=== PATIENT | male | born 1945 | race Caucasian/White ===

== ENCOUNTER → 2018-04-30 16:06 | Outpatient (CLI) | payer MEDICARE, OTHER, SELFPAY | PROVIDERS: Visit Provider Otolaryngology | DX: J02.9 Acute pharyngitis, unspecified (principal) | CPT/HCPCS: 87070 ==

== ENCOUNTER → 2018-10-29 15:39 | Outpatient (CLI) | payer MEDICARE, OTHER, SELFPAY ==
--- NOTE | 2018-10-29 16:08 | RAD_ITS ---
STUDY: X-RAY - LUMBAR SPINE REASON FOR EXAM: Male, 73 years old. Low back pain TECHNIQUE: 5 view(s) of the lumbar spine were obtained. COMPARISON: None FINDINGS: Normal lumbar lordosis. There is no substantial scoliosis. There is a normal alignment of the vertebrae. There is multilevel endplate spondylosis of the lumbar vertebrae. There is multi-level degenerative disc disease with multi-level disc space narrowing. There is no demonstrated fracture. There is atherosclerotic calcification of the abdominal aorta without a demonstrated aneurysm. RAD/L/S Spine Min 4 Views IMPRESSION: Degenerative changes of the spine, as detailed above. Electronically Signed: Omero Carver MD at 11:51 EDT , Service support ,
[2018-10-29 18:10] LABS: ALB/GLOB Ratio 1.3 RATIO (0.9-2.4); AST(SGOT) 23 U/L (15-37); Alanine Aminotransfer ALT/SGPT 25 U/L (16-61); Alkaline Phosphatase 54 U/L (45-117); Anion Gap 7 (5-15); BUN 18 mg/dL (7-18); BUN/Creat Ratio 15.4 RATIO (10-20); CRP < 2.90 mg/L (0.0-3.0); Calcium,Total 8.7 mg/dL (8.5-10.1); Chloride 103 mmol/L (98-107); Creatinine, Serum 1.17 mg/dL (0.70-1.30); EST Glomerular Filtration Rate 65 mL/min (>60); Est Glom Filt Rate - Afr Amer 79 mL/min (>60); Globulin 3.1 g/dL (2.2-4.2); Glucose 102 mg/dL (74-106); Potassium 3.9 mmol/L (3.5-5.1); Protein, Total 7.1 g/dL (6.4-8.2); Rheumatoid Factor < 10.0 IU/mL (<15); Sodium Level 137 mmol/L (136-145)
[2018-10-29 18:15] LABS: Erythrocyte Sedimentation Rate 3 mm/hr (0-20)
[2018-10-29 18:23] LABS: Microalbumin,Random Urine < 5.0 mg/L (NO RANGE EST.)
[2018-10-29 18:43] LABS: PTHIN 30.5 pg/mL (18.4-80.1)
[2018-11-04 11:53] LABS: ANTINUCLEAR ANTIBODIES DIRECT Negative (Negative)
== END ==
PROVIDERS: Family Provider Family Medicine; PCP Family Medicine; Referring Provider Family Medicine; Visit Provider Family Medicine
DX: M51.36 Other intervertebral disc degeneration, lumbar region (principal); M13.0 Polyarthritis, unspecified; I10 Essential (primary) hypertension
CPT/HCPCS: 36415; 72110; 80053; 82043; 82570; 83970; 85652; 86038; 86140; 86431

== ENCOUNTER → 2018-11-26 13:09 | Outpatient (CLI) | payer MEDICARE, OTHER, SELFPAY ==
--- NOTE | 2018-11-26 13:19 | MRI_ITS ---
STUDY: MRI LUMBAR SPINE WITHOUT CONTRAST REASON FOR EXAM: Male, 73 years old. Low back pain and right leg radiculopathy TECHNIQUE: Standardized fat and water weighted pulse sequences were obtained in the sagittal and axial planes. COMPARISON: Lumbar spine radiograph 10/29/2018 FINDINGS: T12-L1: There is moderate intervertebral disc space narrowing. There is central and right paracentral broad-based disc bulge and a central disc protrusion with inferior migration. Mild ventral thecal sac narrowing. Mild to moderate bilateral facet arthrosis. Normal bilateral intervertebral neural foramina. There is mild straightening of the lumbar lordosis. There is a dextroscoliosis of the lumbar spine. Normal conus medullaris that terminates at the L1 level L1-2: Moderate intervertebral disc space narrowing and mild annular disc bulge. Moderate bilateral facet arthrosis. Mild ventral thecal sac narrowing all. Normal bilateral intervertebral neural foramina. L2-3: There is moderate to marked intervertebral disc space narrowing. Mild annular disc bulge. Moderate bilateral facet arthrosis. Mild central canal narrowing. There is Modic changes of the endplates. Mild bilateral foraminal narrowing. L3-4: Moderate to marked intervertebral disc space narrowing and mild annular disc bulge. Moderate bilateral facet arthrosis and ligamentum flavum hypertrophy. Mild central canal narrowing and mild bilateral foraminal narrowing, right greater than left. L4-5: There is marked intervertebral disc space narrowing and Modic changes of the endplates. Mild annular disc bulge and small central disc protrusion. Moderate bilateral facet arthrosis and ligamentum flavum are the. Mild central canal narrowing. Mild bilateral foraminal narrowing. L5-S1: Marked intervertebral disc space narrowing. There is central disc protrusion. Moderate bilateral facet arthrosis and ligamentum flavum hypertrophy. Mild central canal narrowing. Mild bilateral foraminal narrowing. Normal visualized sacral ala. Normal visualized paraspinous soft tissue structures. MRI/Spine Lumbar (Routine) IMPRESSION: Multilevel degenerative disc disease as described in detail above. Mild straightening of the lumbar lordosis and lumbar dextroscoliosis Electronically Signed: Bhanu Jamison, at 15:52 EDT Tel , Service support ,
== END ==
PROVIDERS: Family Provider Family Medicine; PCP Family Medicine; Referring Provider Anesthesiology Pain Medicine; Visit Provider Anesthesiology Pain Medicine
DX: M54.9 Dorsalgia, unspecified (principal); M79.606 Pain in leg, unspecified
CPT/HCPCS: 72148

== ENCOUNTER → 2018-12-14 17:33 | Outpatient (CLI) | payer MEDICARE, OTHER, SELFPAY ==
--- NOTE | 2018-12-14 17:37 | RAD_ITS ---
STUDY: X-RAY - CERVICAL SPINE REASON FOR EXAM: Male, 73 years old. Neck pain. TECHNIQUE: 3 view(s) of the cervical spine were obtained. COMPARISON: None FINDINGS: Normal anterior atlantoaxial articulation. Normal odontoid process. Minimal retrolisthesis C4 on C5. Disc space narrowing C4-C5 and C5-C6 with uncovertebral joint hypertrophy. Rudimentary cervical ribs. Prevertebral soft tissues unremarkable. 1.5 cm vertically oriented wedge-shaped calcification or osseous density posterior soft tissue at C5 probably related to old trauma. RAD/Cerv Spine 2 or 3 Views IMPRESSION: Degenerative changes of the cervical spine at C4-5 and C5-6. No fracture identified. Electronically Signed: Ed Robbins MD at 1:49 EDT , Service support ,
== END ==
PROVIDERS: Family Provider Family Medicine; PCP Family Medicine; Referring Provider Anesthesiology Pain Medicine; Visit Provider Anesthesiology Pain Medicine
DX: M54.2 Cervicalgia (principal)
CPT/HCPCS: 72040

== ENCOUNTER 2019-01-13 13:00 | Outpatient (RCR) | payer MEDICARE, OTHER, SELFPAY ==
--- NOTE | 2018-12-21 16:20 | HP.PTEVAL ---
Patient's Visit Information NELLA TOWNSEND is a 73 year old M referred to Physical Therapy by Cathy Bustamante MD with a diagnosis of BACK AND NECK PAIN. Date of Evaluation: 12/21/18 Physical Therapist: Mat Bernardo PT, Cert MDT, OCS - Visit Plan Frequency: 2x /Week Duration: 4 Weeks Plan: INTERVENTIONS TO INCLUDE DLS,POSTURAL EX'S ,STACEY ,ADDRESS LEFT TMJ CLICKING WITH POSTURAL EX'S - Subjective Findings: This 73 y/o male presents to physical therapy with back pain and neck pain .Patient has had back pain many years and cervical pain past years. Patient was reffered to pain management. Patient seen pain epidural injections last seem to help. Pain located lumbar region with radicular symptoms. Cervical pain is on left side cervica spine. Aggraveting bending ,lifting. Alleviating factors walking ,standing,sitting.Symptoms worse in cervical spine worse with yawning.Denies parathesia/tingling. Bowel/bladder good. Patient had MRI . No Meds. Patient symptoms affect sleeping.Patient denies JANSEN/dizziness,nuasea. Symptoms affect part-time work and ADL'S. Symptoms affect QOL and function: SOCIAL: . 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 GAIT: reciprocal pattern ,mild foward posture. NEURO: denies parathesia/tingling,reflexes C5-6-7 2 /3,L3-4,L4-5,L5-S1 1/3. PALAPTION: tender TMJ ,lateral muscles. CERVICAL ROM: flexion min loss,lateral flexion ,rotation,extension min loss,. MMT: BUE 4/5. LUMBAR ROM: flexion min loss,extension min loss,side glides min loss,. MMT: quads/hams 4/5,hip flexion 4-/5,ankle 4/5. FLEXABLITY: hmas min tight - Special Tests C/S Radiculapathy - Left Upper limb tension test: Negative C/S Radiculapathy - Right Upper limb tension test: Negative C/S Radiculapathy - Left Spurlings: Negative C/S Radiculapathy - Right Spurlings: Negative C/S Radiculapathy - Left Cervical distraction: Negative C/S Radiculapathy - Right Cervical distraction: Negative Sharp Jeff: Negative Vertebral Artery Test: Negative Alar Ligament Test: Negative Cervical Sitting: Protrusion - Mechanical Response: No effect Cervical Sitting: Protrusion - Symptoms During Testing: No effect Cervical Sitting: Protrusion - Symptoms After Testing: No effect Cervical Sitting: Retraction - Mechanical Response: No effect Cervical Sitting: Retraction - Symptoms During Testing: No effect Cervical Sitting: Retraction - Symptoms After Testing: No effect Cervical Sitting: Retraction-Extension - Mechanical Response: No effect Cerv Sitting: Retraction-Extension - Symptoms During Testing: No effect Cerv Sitting: Retraction-Extension - Symptoms After Testing: No effect L/S Slump test left side: Negative L/S Slump test right side: Negative L/S Left Straight Leg Raise: Negative L/S Right Straight Leg Raise: Negative Lumbar Standing: Flexion - Mechanical Response: No effect Lumbar Standing: Flexion - Symptoms During Testing: No effect Lumbar Standing: Flexion - Symptoms After Testing: No effect Lumbar Standing: Extension - Mechanical Response: No effect Lumbar Standing: Extension - Symptoms During Testing: No effect Lumbar Standing: Extension - Symptoms After Testing: No effect Lumbar Lying: Flexion - Mechanical Response: No effect Lumbar Lying: Flexion - Symptoms During Testing: No effect Lumbar Lying: Flexion - Symptoms After Testing: No effect Lumbar Lying: Extension - Mechanical Response: No effect Lumbar Lying: Extension - Symptoms During Testing: No effect Lumbar Lying: Extension - Symptoms After Testing: No effect - Goals Goal 1:: Independant with HEP Goal Time Frame: 4-6 Weeks Goal 2:: Independant with HEP Goal Time Frame: 4-6 Weeks Goal 3:: Decrease lumbar/cervical pain by 50% or greater to imprpove functyion with ADL'S Goal Time Frame: 4-6 Weeks Goal 4:: Patient to improve back owestry score by 5 ponys to improve QOL. Goal Time Frame: 4-6 Weeks Goal 5:: Patient increase lumbar ROM for function of recovery. Goal Time Frame: 4-6 Weeks - Rehabilitation Potential Physical Therapy Diagnosis: This patient has lumbar pain and occassionally radicular symptoms in legs as well as clicking TMJ joint when yawning . Patient pain and weakness affects function with ADL'S. Rehabilitation Potential: Good - Anticipated Interventions Patient/Client Instruction: Educate patient on: Condition, Plan of Care For the Purpose of:: To decrease pain, To increase ROM, To improve muscle performance and motor function, To improve ability to perform ADL's, To increase tolerance to activity/condition/position, To improve ability of physical actions for home/community/work/leisure, To improve gait and locomotor functions, To improve health of tissue, To decrease soft tissue restriction, To increase flexibility/ROM, To reduce risk of recurrence, To improve ability to perform tasks related to life management Therapeutic Exercise to Include: Strength training, Body mechanics, Postural training, Flexibilty training, Dynamic Lumbar Stabilization, Stacey Exercises Comment: CERVICAL For the Purpose of:: To decrease pain, To improve muscle performance and motor function, To increase tolerance to activity/condition/position, To improve ability of physical actions for home/community/work/leisure, To improve gait and locomotor functions, To decrease soft tissue restriction, To increase flexibility/ROM, To reduce risk of recurrence, To improve self management, To improve ability to perform tasks related to life management TENS: Yes IF ES: Yes Cryotherapy (ice pack, ice massage): Yes Thermo therapy (hot pack): Yes Ultrasound (thermal/non thermal): Yes For the Purpose of:: To decrease pain, To decrease swelling/inflammation, To improve health of tissue, To decrease soft tissue restriction Thank you for the opportunity to evaluate your patient. For Medicare and Medicare HMO plans, please review the plan of care and approve it. It will need to be FAXED BACK to us at [phone] for Medicare purposes. For Medicare only, by signing this I certify the plan of care. Please let me know if there are questions or concerns regarding this plan of care. Physician Signature: Date:
--- NOTE | 2019-01-13 13:30 | HP.PTDCSUM ---
HP - PT D/C Summary It has been my pleasure to treat NELLA TOWNSEND under orders from Cathy Bustamante MD, for the diagnosis of BACK AND NECK PAIN for a total of 8 visit(s). Discharge Date: 01/13/19 Please see the following information for a summary of their discharge status. - Subjective Subjective: Doing great in neck and back. Able to do most activities. Pain in left shoulder - Pain Bilateral Back Pain Intensity (Out of 10): 0 Left Neck Pain Intensity (Out of 10): 0 L shoulder Pain Intensity (Out of 10): 2 - Objective Objective/Function: POSTURE:WFL. PALAPTION: tender AC. CERVICAL/LUMBAR ROM: min loss allplanes. MMT: BUE 4/5,QUADS/HAMS/HIP 4/5 - Goals Goal 1:: Independant with HEP Goal Progress: Goal Met Goal 2:: Independant with HEP Goal Progress: Goal Met Goal 3:: Decrease lumbar/cervical pain by 50% or greater to imprpove functyion with ADL'S Goal Progress: Goal Met Goal 4:: Patient to improve back owestry score by 5 ponys to improve QOL. Goal Progress: Goal Met Goal 5:: Patient increase lumbar ROM for function of recovery. Goal Progress: Goal Met - Plan Plan: D/C TO HEP - D/C Information Discharge Comments: D/C TO HEP. F/U WITH MD NEEDED FOR LEDFT SHOULDER NEEDED If there are questions or concerns regarding this patient's physical therapy, please feel free to call me at [phone]. Thank you for the referral of this patient. Sincerely, Mat Bernardo, PT, Cert MDT, OCS
== END 2019-01-13 19:00 | disposition home or self-care (01) ==
LOC: PT 13:00
PROVIDERS: Family Provider Family Medicine; PCP Family Medicine; Visit Provider Anesthesiology Pain Medicine
DX: M54.2 Cervicalgia (principal); M54.9 Dorsalgia, unspecified
CPT/HCPCS: 97110; 97162; 97530

== ENCOUNTER → 2019-01-13 | Outpatient (CLI) | payer MEDICARE, OTHER, SELFPAY ==
--- NOTE | 2019-01-13 16:50 | RAD_ITS ---
HISTORY: PAIN Exam:Left Shoulder COMPARISON: None FINDINGS: # of images incl. paperwork: 4 XR Shoulder for Views: The humeral head is well-positioned within the glenoid fossa. No fracture or subluxation. The acromioclavicular joint is normal. The adjacent chest is unremarkable. RAD/Shoulder min 2 Views IMPRESSION: Normal left shoulder. at [id number] Reported and signed by: Ino Gutierrez MD Electronically Signed: Ino Gutierrez MD at 23:56 EDT Tel , Service support ,
== END | disposition home or self-care (01) ==
LOC: RAD 16:49
PROVIDERS: Family Provider Family Medicine; PCP Family Medicine; Referring Provider Anesthesiology Pain Medicine; Visit Provider Anesthesiology Pain Medicine
DX: M25.512 Pain in left shoulder (principal)
CPT/HCPCS: 73030; 97530

== ENCOUNTER → 2019-01-28 15:54 | Outpatient (CLI) | payer MEDICARE, OTHER, SELFPAY ==
[2019-01-28 17:23] LABS: Absolute Lymphocyte Count 2.39 X10^3/ul (0.83-4.51); Basophil# 0.02 X10^3/uL; Basophil% 0.3 % (0-1); Eosinophil# 0.08 X10^3/uL; Eosinophils% 1.3 % (0-5); Hematocrit 42.4 % (40-54); Hemoglobin 14.3 g/dl (13.0-16.5); Lymphocyte # 2.39 X10^3/ul (4.0); Lymphocyte % 38.9 % (19-41); Mean Corp Hgb Conc 33.7 g/gl (32-36); Mean Corpuscular Hgb 29.8 pg (27.0-32.0); Mean Corpuscular Volume 88.3 fL (80-94); Mean Platelet Vol. 10.2 fl (6.2-12.0); Monocyte# 0.66 X10^3/uL; Monocyte% 10.7 % (0-10); Neutrophil # 2.98 X10^3/uL (2.7-7.7); Neutrophil % 48.5 % (47-70); Platelet Count 179 K/mm3 (150-450); RBC Distribution Width CV 13.2 % (11.6-14.6); White Blood Count 6.2 K/mm3 (4.4-11.0)
[2019-01-28 17:25] LABS: POSITIVE COUNT NO; POSITIVE DIFFERENTIAL NO; POSITIVE MORPHOLOGY NO
[2019-01-28 17:41] LABS: Erythrocyte Sedimentation Rate 7 mm/hr (0-20)
[2019-01-28 17:55] LABS: ALB/GLOB Ratio 1.1 RATIO (0.9-2.4); AST(SGOT) 19 U/L (15-37); Alanine Aminotransfer ALT/SGPT 23 U/L (16-61); Albumin, Serum 3.7 g/dL (3.2-5.0); Alkaline Phosphatase 56 U/L (45-117); Anion Gap 10 (5-15); BUN 24 mg/dL (7-18); CRP < 2.90 mg/L (0.0-3.0); Calcium,Total 8.8 mg/dL (8.5-10.1); Chloride 104 mmol/L (98-107); EST Glomerular Filtration Rate 63 mL/min (>60); Est Glom Filt Rate - Afr Amer 76 mL/min (>60); Globulin 3.4 g/dL (2.2-4.2); Glucose 101 mg/dL (74-106); Magnesium 2.3 mg/dL (1.6-2.6); Protein, Total 7.1 g/dL (6.4-8.2); Rheumatoid Factor < 10.0 IU/mL (<15); Sodium Level 138 mmol/L (136-145); Thyroid Stim Hormone (TSH) 4.02 uIU/mL (0.358-3.74)
[2019-01-29 11:54] LABS: Vitamin D,25 Hydroxy 23.2 ng/mL (29.95-100.01)
[2019-02-01 15:01] LABS: ANTINUCLEAR ANTIBODIES DIRECT Negative (Negative)
== END ==
PROVIDERS: Family Provider Family Medicine; PCP Family Medicine; Referring Provider Family Medicine; Visit Provider Family Medicine
DX: M13.0 Polyarthritis, unspecified (principal); K21.9 Gastro-esophageal reflux disease without esophagitis
CPT/HCPCS: 36415; 80053; 82306; 83735; 84443; 85025; 85652; 86038; 86140; 86431

== ENCOUNTER → 2019-01-29 08:53 | Outpatient (CLI) | payer MEDICARE, OTHER, SELFPAY ==
[2019-02-03 10:41] LABS: H. PYLORI STOOL AG Negative (Negative)
== END ==
PROVIDERS: Family Provider Family Medicine; PCP Family Medicine; Referring Provider Family Medicine; Visit Provider Family Medicine
DX: K21.9 Gastro-esophageal reflux disease without esophagitis (principal); M13.0 Polyarthritis, unspecified

== ENCOUNTER 2019-03-02 14:30 | Outpatient (RCR) | payer MEDICARE, OTHER, SELFPAY | END 2019-03-02 19:00 | disposition home or self-care (01) | LOC: PT 14:30 | PROVIDERS: Family Provider Family Medicine; PCP Family Medicine; Visit Provider Family Medicine | DX: M75.102 Unspecified rotator cuff tear or rupture of left shoulder, not specified as traumatic (principal) ==

== ENCOUNTER → 2019-07-29 15:33 | Outpatient (CLI) | payer MEDICARE, OTHER, SELFPAY ==
[2019-07-29 17:46] LABS: ALB/GLOB Ratio 1.2 RATIO (0.9-2.4); AST(SGOT) 24 U/L (15-37); Alanine Aminotransfer ALT/SGPT 29 U/L (16-61); Albumin, Serum 3.9 g/dL (3.2-5.0); Alkaline Phosphatase 51 U/L (45-117); Anion Gap 6 (5-15); BUN 16 mg/dL (7-18); Calcium,Total 8.7 mg/dL (8.5-10.1); Chloride 98 mmol/L (98-107); Cholesterol 184 mg/dL (200); Creatinine, Serum 1.23 mg/dL (0.70-1.30); EST Glomerular Filtration Rate 61 mL/min (>60); Est Glom Filt Rate - Afr Amer 74 mL/min (>60); Globulin 3.2 g/dL (2.2-4.2); Glucose 111 mg/dL (74-106); High Density Lipoprotein 46 mg/dL; Potassium 3.7 mmol/L (3.5-5.1); Protein, Total 7.1 g/dL (6.4-8.2); Sodium Level 133 mmol/L (136-145); Triglycerides 276 mg/dL; Very Low Density Lipoprotein 55 mg/dL (5-40)
== END ==
PROVIDERS: Family Provider Family Medicine; PCP Family Medicine; Referring Provider Family Medicine; Visit Provider Family Medicine
DX: I10 Essential (primary) hypertension (principal); E78.5 Hyperlipidemia, unspecified
CPT/HCPCS: 36415; 80053; 80061

== ENCOUNTER → 2019-10-18 08:48 | Outpatient (CLI) | payer MEDICARE, OTHER, SELFPAY ==
[2019-10-18 10:26] LABS: Anion Gap 5 (5-15); BUN 15 mg/dL (7-18); BUN/Creat Ratio 13.4 RATIO (10-20); Calcium,Total 8.7 mg/dL (8.5-10.1); Chloride 107 mmol/L (98-107); Creatinine, Serum 1.12 mg/dL (0.70-1.30); EST Glomerular Filtration Rate 68 mL/min (>60); Est Glom Filt Rate - Afr Amer 83 mL/min (>60); Glucose 97 mg/dL (74-106); Potassium 3.9 mmol/L (3.5-5.1); Sodium Level 138 mmol/L (136-145)
[2019-10-18 10:54] LABS: Osmolality, Serum 287 mOsm/KG (280-301)
[2019-10-18 12:59] LABS: Urine Sodium 46 mmol/L (Not Establ.)
== END ==
PROVIDERS: PCP Family Medicine; Referring Provider Family Medicine; Visit Provider Family Medicine
DX: I10 Essential (primary) hypertension (principal)
CPT/HCPCS: 36415; 80048; 82570; 83930; 84300

== ENCOUNTER → 2020-05-02 14:25 | Outpatient (CLI) | payer MEDICARE, OTHER, SELFPAY ==
[2020-05-02 14:30] LABS: Mucous, Urine 0 SEEN /hpf (<or=2+); Squamous Epithelial Cells - UA 0 SEEN /hpf (0-5); White Blood Cells 0 SEEN /hpf (0-5)
[2020-05-02 15:58] LABS: Absolute Lymphocyte Count 2.29 X10^3/uL (0.83-4.51); Absolute Neutrophil Count 2.5 X10^3/uL (2.0-7.7); Basophil# 0.03 X10^3/uL; Basophil% 0.5 % (0-1); Eosinophil# 0.12 X10^3/uL; Eosinophils% 2.2 % (0-5); Hematocrit 40.6 % (40-54); Hemoglobin 13.6 g/dL (13.0-16.5); Lymphocyte # 2.29 X10^3/ul (4.0); Lymphocyte % 41.9 % (19-41); Mean Corp Hgb Conc 33.5 g/dL (32-36); Mean Corpuscular Hgb 30.4 pg (27.0-32.0); Mean Corpuscular Volume 90.6 fL (80-94); Mean Platelet Vol. 10.4 fl (6.2-12.0); Monocyte# 0.54 X10^3/uL; Monocyte% 9.9 % (0-10); NRBC Flagged by Analyzer 0 % (0-5); Neutrophil # 2.48 X10^3/uL (2.7-7.7); Neutrophil % 45.3 % (47-70); Platelet Count 184 K/mm3 (150-450); RBC Distribution Width CV 12.3 % (11.6-14.6); Red Blood Count 4.48 M/mm3 (4.6-6.2); White Blood Count 5.5 K/mm3 (4.4-11.0)
[2020-05-02 15:59] LABS: Color, Urine Yellow (Yellow); Glucose, Dipstick Normal (Normal); Ketone-Dipstick Negative (Negative); Leukocyte Esterase-Dipstick Negative /ul (Negative); Nitrite-Dipstick Negative (Negative); Occult Blood-Urine 25 /ul (Negative); Protein-Dipstick Negative (Negative); Specific Gravity, Urine 1.015 (1.002-1.030); Urine Bilirubin Dipstick Negative (Negative); Urine Clarity Clear (Clear); Urine Urobilinogen Normal (Normal)
[2020-05-02 16:14] LABS: ALB/GLOB Ratio 1.2 RATIO (0.9-2.4); AST(SGOT) 20 U/L (15-37); Alanine Aminotransfer ALT/SGPT 21 U/L (16-61); Albumin, Serum 3.7 g/dL (3.2-5.0); Alkaline Phosphatase 50 U/L (45-117); Anion Gap 8 (5-15); BUN 18 mg/dL (7-18); BUN/Creat Ratio 16.5 RATIO (10-20); Calcium,Total 8.8 mg/dL (8.5-10.1); Chloride 107 mmol/L (98-107); Creatinine, Serum 1.09 mg/dL (0.70-1.30); EST Glomerular Filtration Rate 70 mL/min (>60); Est Glom Filt Rate - Afr Amer 85 mL/min (>60); Globulin 3.1 g/dL (2.2-4.2); Glucose 119 mg/dL (74-106); PSA,Total- Diagnostic 0.41 ng/mL (0.0-4.0); Protein, Total 6.8 g/dL (6.4-8.2); Sodium Level 141 mmol/L (136-145)
[2020-05-02 16:24] LABS: Bacteria RARE /hpf (None Seen); Red Blood Cells-Urine 0-5 SEEN /hpf (0-5)
== END ==
PROVIDERS: PCP Family Medicine; Referring Provider Family Medicine; Visit Provider Family Medicine
DX: M54.5 Low back pain (principal); R32 Unspecified urinary incontinence
CPT/HCPCS: 36415; 80053; 81001; 84153; 85025

== ENCOUNTER → 2020-05-18 13:47 | Outpatient (CLI) | payer MEDICARE, OTHER, SELFPAY ==
--- NOTE | 2020-05-18 13:50 | CT_ITS ---
STUDY: CT LUMBAR SPINE WITHOUT CONTRAST REASON FOR EXAM: Male, 74 years old. CHRONIC LOW BACK PAIN RADIATION DOSAGE (If Supplied By Facility): CTDIvol = ( 30.00 ) mGy, DLP = ( 659.67 ) mGycm TECHNIQUE: The patient was scanned in a multi detector CT scanner. High resolution transaxial imaging was performed. Images were obtained from lower thoracic spine to mid sacrum. Sagittal and coronal images were reconstructed. Individualized dose optimization techniques were used for this CT. COMPARISON: Lumbar spine MRI 11/26/2018 FINDINGS: Normal lumbar lordosis. There is no substantial scoliosis. No compression fracture. L1-2: There is disc space narrowing with posterior disc bulging causing canal and bilateral foraminal narrowing. L2-3: Disc space narrowing, anterior spondylosis, disc space sclerosis and broad posterior disc bulging causing narrowing of the spinal canal and bilateral foraminal narrowing. L3-4: Disc space narrowing with posterior disc bulging, ligamentum flavum hypertrophy and facet arthropathy causing foraminal more than spinal canal narrowing. L4-5: Disc space narrowing with endplate sclerosis, ligamentum flavum hypertrophy and facet arthropathy with posterior disc bulging. There is canal and bilateral foraminal narrowing (left more than right). L5-S1: Disc space narrowing with vacuum disc phenomenon and posterior disc osteophyte complex, mildly left paracentral mildly narrowing the spinal canal with moderate bilateral foraminal narrowing. There is atherosclerosis of the abdominal aorta. CT/Spine Lumbar without Contrast IMPRESSION: 1. Multilevel degenerative disc disease, as above. Overall similar since prior MRI of 11/26/2018, accounting for differences in modality. Electronically Signed: Dru Osman MD ([place]) at 10:34 EDT , Service support ,
== END ==
PROVIDERS: PCP Family Medicine; Referring Provider Family Medicine; Visit Provider Family Medicine
CPT/HCPCS: 72131

== ENCOUNTER → 2020-09-22 13:07 | Outpatient (CLI) | payer MEDICARE, OTHER, SELFPAY ==
[2020-09-22 15:26] LABS: Absolute Lymphocyte Count 2.65 X10^3/uL (0.83-4.51); Absolute Neutrophil Count 2.2 X10^3/uL (2.0-7.7); Basophil# 0.02 X10^3/uL; Basophil% 0.4 % (0-1); Eosinophil# 0.19 X10^3/uL; Eosinophils% 3.4 % (0-5); Hematocrit 42.8 % (40-54); Hemoglobin 14.3 g/dL (13.0-16.5); Lymphocyte # 2.65 X10^3/ul (4.0); Lymphocyte % 47.1 % (19-41); Mean Corp Hgb Conc 33.4 g/dL (32-36); Mean Corpuscular Hgb 30.2 pg (27.0-32.0); Mean Corpuscular Volume 90.5 fL (80-94); Mean Platelet Vol. 10.4 fl (6.2-12.0); Monocyte# 0.61 X10^3/uL; Monocyte% 10.8 % (0-10); NRBC Flagged by Analyzer 0 % (0-5); Neutrophil # 2.15 X10^3/uL (2.7-7.7); Neutrophil % 38.1 % (47-70); Platelet Count 179 K/mm3 (150-450); RBC Distribution Width CV 12.5 % (11.6-14.6); RBC Distribution Width SD 41.4 fl (35.1-43.9); Red Blood Count 4.73 M/mm3 (4.6-6.2); White Blood Count 5.6 K/mm3 (4.4-11.0)
[2020-09-22 15:57] LABS: ALB/GLOB Ratio 1.2 RATIO (0.9-2.4); AST(SGOT) 20 U/L (15-37); Alanine Aminotransfer ALT/SGPT 28 U/L (16-61); Albumin, Serum 3.9 g/dL (3.2-5.0); Alkaline Phosphatase 52 U/L (45-117); Anion Gap 4 (5-15); BUN 12 mg/dL (7-18); BUN/Creat Ratio 11.5 RATIO (10-20); CRP < 2.90 mg/L (0.0-3.0); Calcium,Total 8.9 mg/dL (8.5-10.1); Chloride 101 mmol/L (98-107); Creatinine, Serum 1.04 mg/dL (0.70-1.30); EST Glomerular Filtration Rate 74 mL/min (>60); Est Glom Filt Rate - Afr Amer 90 mL/min (>60); Globulin 3.3 g/dL (2.2-4.2); Glucose 92 mg/dL (74-106); Lipase 159 U/L (73-393); Protein, Total 7.2 g/dL (6.4-8.2); Sodium Level 135 mmol/L (136-145)
== END ==
PROVIDERS: PCP Family Medicine; Referring Provider Family Medicine; Visit Provider Family Medicine
DX: K25.3 Acute gastric ulcer without hemorrhage or perforation (principal)
CPT/HCPCS: 36415; 80053; 83690; 85025; 86140

== ENCOUNTER → 2020-09-25 09:48 | Outpatient (CLI) | payer MEDICARE, OTHER, SELFPAY ==
[2020-09-29 11:51] LABS: H. PYLORI STOOL AG Negative (Negative)
== END ==
PROVIDERS: PCP Family Medicine; Referring Provider Family Medicine; Visit Provider Family Medicine
DX: K25.3 Acute gastric ulcer without hemorrhage or perforation (principal)

== ENCOUNTER → 2021-05-07 09:14 | Outpatient (CLI) | payer MEDICARE, OTHER, SELFPAY ==
[2021-05-07 09:58] LABS: Absolute Lymphocyte Count 1.94 X10^3/uL (0.83-4.51); Absolute Neutrophil Count 1.6 X10^3/uL (2.0-7.7); Basophil# 0.02 X10^3/uL; Basophil% 0.5 % (0-1); Eosinophil# 0.16 X10^3/uL; Eosinophils% 3.8 % (0-5); Hemoglobin 14.2 g/dL (13.0-16.5); Lymphocyte # 1.94 X10^3/ul (0.83-4.51); Lymphocyte % 46.3 % (19-41); Mean Corpuscular Volume 90.7 fL (80-94); Monocyte# 0.48 X10^3/uL; Monocyte% 11.5 % (0-10); NRBC Flagged by Analyzer 0 % (0-5); Neutrophil # 1.58 X10^3/uL (2.7-7.7); Neutrophil % 37.7 % (47-70); Platelet Count 181 K/mm3 (150-450); RBC Distribution Width CV 12.3 % (11.6-14.6); RBC Distribution Width SD 40.8 fl (35.1-43.9); Red Blood Count 4.74 M/mm3 (4.6-6.2); White Blood Count 4.2 K/mm3 (4.4-11.0)
[2021-05-07 10:56] LABS: AST(SGOT) 25 U/L (15-37); Alanine Aminotransfer ALT/SGPT 25 U/L (16-61); Albumin, Serum 3.6 g/dL (3.2-5.0); Alkaline Phosphatase 50 U/L (45-117); Anion Gap 10 (5-15); BUN 15 mg/dL (7-18); BUN/Creat Ratio 13.9 RATIO (10-20); Calcium,Total 8.9 mg/dL (8.5-10.1); Chloride 103 mmol/L (98-107); Creatinine, Serum 1.08 mg/dL (0.70-1.30); EST Glomerular Filtration Rate 71 mL/min (>60); Est Glom Filt Rate - Afr Amer 86 mL/min (>60); Globulin 3.6 g/dL (2.2-4.2); Glucose 98 mg/dL (74-106); Protein, Total 7.2 g/dL (6.4-8.2); Sodium Level 137 mmol/L (136-145); Thyroid Stim Hormone (TSH) 4.76 uIU/mL (0.358-3.74)
[2021-05-07 12:52] LABS: Microalbumin,Random Urine < 5.0 mg/L (NO RANGE EST.)
== END ==
PROVIDERS: PCP Family Medicine; Visit Provider Family Medicine
DX: I10 Essential (primary) hypertension (principal); M54.5 Low back pain
CPT/HCPCS: 36415; 80053; 82043; 82570; 84443; 85025

== ENCOUNTER → 2021-05-11 10:47 | Outpatient (CLI) | payer MEDICARE, OTHER, SELFPAY | PROVIDERS: PCP Family Medicine; Referring Provider Family Medicine; Visit Provider Family Medicine | DX: Z20.822 Contact with and (suspected) exposure to COVID-19 (principal) | CPT/HCPCS: 87635; U0005; U0003 ==

== ENCOUNTER 2021-06-05 13:00 | Outpatient (RCR) | payer MEDICARE, OTHER, SELFPAY ==
--- NOTE | 2021-05-07 12:54 | HP.PTEVAL_ITS ---
Patient's Visit Information NELLA TOWNSEND is a 75 year old M referred to Physical Therapy by Dr. Azael Marrero MD with a diagnosis of Left Rotator Cuff. Date of Evaluation: 05/07/21 Physical Therapist: Shawna Contreras - Visit Plan Frequency: 1x/Week Duration: 4 Weeks Plan: Begin with gentle AROM/strengthening of shoulder, progressing as tolerated. Plan may include ther ex, manual therapy, heat/ice for pain relief, and ultrasound. - Subjective Pain in left shoulder has been on and off for about a year. Lately, beginning of summer, pain does not go away. Pain from shoulder down into arm. Tylenol and heat help mildly. Denies N&T. Pt is left handed. Pt is fairly active with outdoor work. Takes care of 2 acre property and enjoys fishing. 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 Pt has not had imaging done to the shoulder since the pain became more consistent at the beginning of the summer. Pt describes the pain as achy, not sharp or shooting and can hear crepitus and popping occasionally with movement. Pain at the worst: evenings after using it or when just sitting not focused on other things 8-04/20. Pain at the best: mornings before he starts using it. 210 - Pain L shoulder Pain Intensity (Out of 10): 6 Pain Intensity Range: 2, 9 - Objective POSTURE: Pt presents with forward head posture and mild trunk flexion/posterior pelvic tilt in sitting. AROM: shoulder flexion: full on R, lacking 10 degrees on L. Shoulder horizontal abduction: full, pain greater with palms turned down. extension: full, pain in front of shoulder at end range. With arm at side: R IR/ER: WFL, L IR: WFL, L ER: limited by pain. With shoulder at 90 degrees F/Abd: pain when starting to rotate into ER, did not attempt further. Full AROM at c-spine, elbow, wrist. MMT: L Supraspinatus: 3+/5. R supraspinatus: 4+/5. R shoulder F: 4+/5 L shoulder flexion: 4+/5L ER: 3+/5, L IR: 4/5, pain in front of shoulder with both. R ER: 4/5, R IR: 4/5. Elbow F/E: 5/5 feels slight pain in front of shoulder. Palpation: No pain over L bicep tendon, tende rness to palpation over front of shoulder capsule. - Balance/Special Test Scores Quick DASH Score: 50.0000 - Goals Goal 1:: Pt will report compliance with HEP Goal Time Frame: 2-4 Weeks Goal 2:: Pt will report 50% decrease in L shoulder pain after day's use, indicating increased ADL tolerance. Goal Time Frame: 4-6 Weeks Goal 3:: Pt will demonstrate pain free L shoulder ROM in ER, flexion, and extension WFL to allow for increased participation in activities Goal Time Frame: 4-6 Weeks Goal 4:: Pt will demonstrate at least 4+/5 L shoulder strength to allow for safe return to yard maintenance. Goal Time Frame: 4-6 Weeks - Rehabilitation Potential Physical Therapy Diagnosis: Pt presents with s/s consistent with rotator cuff tendonitis. Pain with increased use and with palpation to front of shoulder capsule. Pt would benefit from rehab program for physical reconditioning, AROM, and strengthening to alleviate symptoms. Rehabilitation Potential: Good - Anticipated Interventions Patient/Client Instruction: Educate patient on: Condition, Plan of Care Therapeutic Exercise to Include: Strength training, Body mechanics, Postural training, Active ROM, Scapular Strength/Stabilization For the Purpose of:: To decrease pain, To increase ROM, To improve ability to perform ADL's Manual Therapy Techniques to Include: Mobilization Ultrasound (thermal/non thermal): Yes Thank you for the opportunity to evaluate your patient. For Medicare and Medicare HMO plans, please review the plan of care and approve it. It will need to be FAXED BACK to us at [phone] for Medicare purposes. For Medicare only, by signing this I certify the plan of care. Please let me know if there are questions or concerns regarding this plan of care. Physician Signature: Date:
--- NOTE | 2021-06-07 11:25 | HP.PTREVAL ---
Dr. Azael Marrero MD, It has been my pleasure to treat ENLLA TOWNSEND over the last 5 visits for Left Rotator Cuff. Please see the progress note below for an update on the physical therapy plan of care! Subjective: Pt reports he still has pain in his shoulder, but feels he has improved since starting physical therapy. Objective/Function: L shoulder AROM : 0-140 PROM 0-168, abduction, ER 58deg IR- 69. PROM 0-141, ER in supine: 65deg, IR 75deg. Functional ROM :IR L4, ER T3. Strength : L flexion 4+, abduction 4+ , ER 4+, IR 4+. Special tests: - empty can, + Barr Mark, - Neer's, - Speeds test, - Horn blower. He still has some weakness and irritation with biceps testing and with palpation of bicep tendon in groove and as it bifurcates the supraspinatus tendon. Pt strength has improved, and is functional, but still reports pain with tenderness over biceps tendon. Plan Plan: Pt would like to continue strengthening exercises at home for 2-3 weeks and will return to PT if no improvement. If pt does not contact PT for 4 weeks, will D/C patient. Balance/Gait/Functional tests - Balance/Special Test Scores Quick DASH Score: 40.9075 Goals Goal 1:: Pt will report compliance with HEP Goal Time Frame: 2-4 Weeks Goal Progress: Progressing Goal 2:: Pt will report 50% decrease in L shoulder pain after day's use, indicating increased ADL tolerance. Goal Time Frame: 4-6 Weeks Goal Progress: Progressing Goal 3:: Pt will demonstrate pain free L shoulder ROM in ER, flexion, and extension WFL to allow for increased participation in activities Goal Time Frame: 4-6 Weeks Goal Progress: Progressing Goal 4:: Pt will demonstrate at least 4+/5 L shoulder strength to allow for safe return to yard maintenance. Goal Time Frame: 4-6 Weeks Goal Progress: Goal Met Anticipated Interventions Patient/Client Instruction: Educate patient on: Condition, Plan of Care Therapeutic Exercise to Include: Strength training, Body mechanics, Postural training, Active ROM, Scapular Strength/Stabilization For the Purpose of:: To decrease pain, To increase ROM, To improve ability to perform ADL's Manual Therapy Techniques to Include: Mobilization Ultrasound (thermal/non thermal): Yes Please do not hesitate to contact me at [phone] by phone or if you have questions or concerns regarding this new plan of care! Sincerely, SALINA CamarenaT
--- NOTE | 2021-08-27 08:25 | HP.PTDCSUM ---
It has been my pleasure to treat NELLA TOWNSEND referred by Dr. Azael Marrero MD, with the diagnosis of Left Rotator Cuff for a total of 5 visit(s). Discharge Date: Please see the following information for a summary of their discharge status. Subjective: Pt reports he still has pain in his shoulder, but feels he has improved since starting physical therapy. L shoulder Pain Intensity (Out of 10): 3 % Improvement: 50 Objective/Function: L shoulder AROM : 0-140 PROM 0-168, abduction, ER 58deg IR- 69. PROM 0-141, ER in supine: 65deg, IR 75deg. Functional ROM :IR L4, ER T3. Strength : L flexion 4+, abduction 4+ , ER 4+, IR 4+. Special tests: - empty can, + Barr Mark, - Neer's, - Speeds test, - Horn blower. He still has some weakness and irritation with biceps testing and with palpation of bicep tendon in groove and as it bifurcates the supraspinatus tendon. Pt strength has improved, and is functional, but still reports pain with tenderness over biceps tendon. Goal 1:: Pt will report compliance with HEP Goal Progress: Progressing Goal 2:: Pt will report 50% decrease in L shoulder pain after day's use, indicating increased ADL tolerance. Goal Progress: Progressing Goal 3:: Pt will demonstrate pain free L shoulder ROM in ER, flexion, and extension WFL to allow for increased participation in activities Goal Progress: Progressing Goal 4:: Pt will demonstrate at least 4+/5 L shoulder strength to allow for safe return to yard maintenance. Goal Progress: Goal Met Plan: Pt would like to continue strengthening exercises at home for 2-3 weeks and will return to PT if no improvement. If pt does not contact PT for 4 weeks, will D/C patient. If there are questions or concerns regarding this patient's physical therapy, please feel free to call me at [phone]. Thank you for the referral of this patient. Sincerely, Azael Agrawal, DPT, OCS, CSCS Balance/Gait/Functional tests - Balance/Special Test Scores Quick DASH Score: 40.9075
== END 2021-06-05 19:00 | disposition home or self-care (01) ==
LOC: PT 13:00
PROVIDERS: PCP Family Medicine; Referring Provider Family Medicine; Visit Provider Family Medicine
DX: M77.9 Enthesopathy, unspecified (principal); M19.012 Primary osteoarthritis, left shoulder
CPT/HCPCS: 97110; 97140; 97161; 97164

== ENCOUNTER → 2021-07-31 10:25 | Outpatient (CLI) | payer MEDICARE, OTHER, SELFPAY ==
[2021-07-31 12:19] LABS: Absolute Lymphocyte Count 2.64 X10^3/uL (0.83-4.51); Absolute Neutrophil Count 1.8 X10^3/uL (2.0-7.7); Basophil# 0.02 X10^3/uL; Basophil% 0.4 % (0-1); Eosinophil# 0.19 X10^3/uL; Eosinophils% 3.6 % (0-5); Hematocrit 44.2 % (40-54); Hemoglobin 14.5 g/dL (13.0-16.5); Lymphocyte # 2.64 X10^3/ul (0.83-4.51); Lymphocyte % 49.9 % (19-41); Mean Corp Hgb Conc 32.8 g/dL (32-36); Mean Corpuscular Hgb 29.9 pg (27.0-32.0); Mean Corpuscular Volume 91.1 fL (80-94); Mean Platelet Vol. 10.2 fl (6.2-12.0); Monocyte# 0.66 X10^3/uL; Monocyte% 12.5 % (0-10); NRBC Flagged by Analyzer 0 % (0-5); Neutrophil # 1.77 X10^3/uL (2.7-7.7); Neutrophil % 33.4 % (47-70); Platelet Count 168 K/mm3 (150-450); RBC Distribution Width CV 12.5 % (11.6-14.6); RBC Distribution Width SD 41.1 fl (35.1-43.9); Red Blood Count 4.85 M/mm3 (4.6-6.2); White Blood Count 5.3 K/mm3 (4.4-11.0)
[2021-07-31 12:45] LABS: ALB/GLOB Ratio 1.2 RATIO (0.9-2.4); AST(SGOT) 23 U/L (15-37); Alanine Aminotransfer ALT/SGPT 32 U/L (16-61); Albumin, Serum 3.9 g/dL (3.2-5.0); Alkaline Phosphatase 59 U/L (45-117); Anion Gap 7 (5-15); BUN 14 mg/dL (7-18); BUN/Creat Ratio 13.6 RATIO (10-20); CRP < 2.90 mg/L (0.0-3.0); Calcium,Total 9.3 mg/dL (8.5-10.1); Chloride 102 mmol/L (98-107); Creatinine, Serum 1.03 mg/dL (0.70-1.30); EST Glomerular Filtration Rate 75 mL/min (>60); Est Glom Filt Rate - Afr Amer 91 mL/min (>60); Globulin 3.3 g/dL (2.2-4.2); Glucose 103 mg/dL (74-106); Potassium 4.3 mmol/L (3.5-5.1); Protein, Total 7.2 g/dL (6.4-8.2); Sodium Level 138 mmol/L (136-145)
== END ==
PROVIDERS: PCP Family Medicine; Referring Provider Family Medicine; Visit Provider Family Medicine
DX: R11.0 Nausea (principal)
CPT/HCPCS: 36415; 80053; 85025; 86140

== ENCOUNTER → 2022-01-28 | Outpatient (CLI) | payer MEDICARE, SELFPAY ==
[2022-01-28 17:33] LABS: Absolute Lymphocyte Count 2.16 X10^3/uL (0.83-4.51); Absolute Neutrophil Count 2.7 X10^3/uL (2.0-7.7); Basophil# 0.03 X10^3/uL; Basophil% 0.5 % (0-1); Eosinophil# 0.29 X10^3/uL; Hematocrit 41.1 % (40-54); Hemoglobin 13.8 g/dL (13.0-16.5); Lymphocyte # 2.16 X10^3/ul (0.83-4.51); Lymphocyte % 37.3 % (19-41); Mean Corp Hgb Conc 33.6 g/dL (32-36); Mean Corpuscular Hgb 30.8 pg (27.0-32.0); Mean Corpuscular Volume 91.7 fL (80-94); Mean Platelet Vol. 10.2 fl (6.2-12.0); Monocyte# 0.55 X10^3/uL; Monocyte% 9.5 % (0-10); NRBC Flagged by Analyzer 0 % (0-5); Neutrophil # 2.74 X10^3/uL (2.7-7.7); Neutrophil % 47.4 % (47-70); Platelet Count 178 K/mm3 (150-450); RBC Distribution Width CV 12.5 % (11.6-14.6); RBC Distribution Width SD 42.4 fl (35.1-43.9); Red Blood Count 4.48 M/mm3 (4.6-6.2); White Blood Count 5.8 K/mm3 (4.4-11.0)
[2022-01-28 18:08] LABS: ALB/GLOB Ratio 1.2 RATIO (0.9-2.4); AST(SGOT) 23 U/L (15-37); Alanine Aminotransfer ALT/SGPT 27 U/L (16-61); Albumin, Serum 3.8 g/dL (3.2-5.0); Alkaline Phosphatase 60 U/L (45-117); Anion Gap 7 (5-15); BUN 17 mg/dL (7-18); BUN/Creat Ratio 14.2 RATIO (10-20); Chloride 104 mmol/L (98-107); EST Glomerular Filtration Rate 63 mL/min (>60); Est Glom Filt Rate - Afr Amer 76 mL/min (>60); Globulin 3.3 g/dL (2.2-4.2); Glucose 115 mg/dL (74-106); Protein, Total 7.1 g/dL (6.4-8.2); Sodium Level 138 mmol/L (136-145)
== END | disposition home or self-care (01) ==
LOC: MFPLAB 15:36
PROVIDERS: PCP Family Medicine; Visit Provider Family Medicine
DX: M51.36 Other intervertebral disc degeneration, lumbar region (principal); M54.50 Low back pain, unspecified; I10 Essential (primary) hypertension; N40.0 Benign prostatic hyperplasia without lower urinary tract symptoms
CPT/HCPCS: 36415; 80053; 85025

== ENCOUNTER → 2022-07-31 | Outpatient (CLI) | payer MEDICARE, OTHER, SELFPAY ==
[2022-07-31 18:04] LABS: Absolute Lymphocyte Count 2.36 X10^3/uL (0.83-4.51); Absolute Neutrophil Count 2.5 X10^3/uL (2.0-7.7); Basophil# 0.02 X10^3/uL; Basophil% 0.4 % (0-1); Eosinophil# 0.16 X10^3/uL; Eosinophils% 2.9 % (0-5); Hematocrit 41.2 % (40-54); Hemoglobin 13.4 g/dL (13.0-16.5); Lymphocyte # 2.36 X10^3/ul (0.83-4.51); Lymphocyte % 42.8 % (19-41); Mean Corp Hgb Conc 32.5 g/dL (32-36); Mean Corpuscular Hgb 30.1 pg (27.0-32.0); Mean Corpuscular Volume 92.6 fL (80-94); Mean Platelet Vol. 9.8 fl (6.2-12.0); Monocyte# 0.51 X10^3/uL; Monocyte% 9.2 % (0-10); NRBC Flagged by Analyzer 0.5 % (0-5); Neutrophil # 2.45 X10^3/uL (2.7-7.7); Neutrophil % 44.3 % (47-70); Platelet Count 230 K/mm3 (150-450); RBC Distribution Width CV 12.5 % (11.6-14.6); RBC Distribution Width SD 42.4 fl (35.1-43.9); Red Blood Count 4.45 M/mm3 (4.6-6.2); White Blood Count 5.5 K/mm3 (4.4-11.0)
[2022-07-31 19:17] LABS: ALB/GLOB Ratio 1.3 RATIO (0.9-2.4); AST(SGOT) 26 U/L (15-37); Alanine Aminotransfer ALT/SGPT 30 U/L (16-61); Albumin, Serum 3.6 g/dL (3.2-5.0); Alkaline Phosphatase 50 U/L (45-117); Anion Gap 8 (5-15); BUN 20 mg/dL (7-18); BUN/Creat Ratio 15.9 RATIO (10-20); Calcium,Total 8.6 mg/dL (8.5-10.1); Chloride 103 mmol/L (98-107); Creatinine, Serum 1.26 mg/dL (0.70-1.30); EST Glomerular Filtration Rate 59 mL/min (>60); Est Glom Filt Rate - Afr Amer 72 mL/min (>60); Globulin 2.8 g/dL (2.2-4.2); Glucose 127 mg/dL (74-106); Potassium 4.1 mmol/L (3.5-5.1); Protein, Total 6.4 g/dL (6.4-8.2); Sodium Level 137 mmol/L (136-145)
[2022-07-31 19:40] LABS: Microalbumin,Random Urine 7.9 mg/L (NO RANGE EST.); Microalbumin:Creatinine Ratio 3.7 mg/g CRE (<30 mg/g CRE)
== END | disposition home or self-care (01) ==
LOC: MFPLAB 15:55
PROVIDERS: PCP Family Medicine; Referring Provider Family Medicine; Visit Provider Family Medicine
DX: I10 Essential (primary) hypertension (principal); M54.50 Low back pain, unspecified
CPT/HCPCS: 36415; 80053; 82043; 82570; 85025

== ENCOUNTER → 2023-01-13 | Outpatient (CLI) | payer MEDICARE, OTHER, SELFPAY ==
[2023-01-13 15:42] LABS: Anion Gap 4 (5-15); BUN 14 mg/dL (7-18); BUN/Creat Ratio 13.1 RATIO (10-20); Calcium,Total 8.8 mg/dL (8.5-10.1); Chloride 107 mmol/L (98-107); Creatinine, Serum 1.07 mg/dL (0.70-1.30); EST Glomerular Filtration Rate 71 mL/min (>60); Est Glom Filt Rate - Afr Amer 86 mL/min (>60); Glucose 126 mg/dL (74-106); Potassium 4.2 mmol/L (3.5-5.1); Sodium Level 137 mmol/L (136-145)
== END | disposition home or self-care (01) ==
LOC: MFPLAB 11:47
PROVIDERS: PCP Family Medicine; Visit Provider Family Medicine
DX: I10 Essential (primary) hypertension (principal)
CPT/HCPCS: 36415; 80048

== ENCOUNTER → 2023-05-05 | Outpatient (CLI) | payer MEDICARE, OTHER, SELFPAY ==
[2023-05-05 15:23] LABS: Absolute Lymphocyte Count 2.38 X10^3/uL (0.83-4.51); Absolute Neutrophil Count 2.1 X10^3/uL (2.0-7.7); Basophil# 0.03 X10^3/uL; Basophil% 0.6 % (0-1); Eosinophil# 0.21 X10^3/uL; Hematocrit 42.5 % (40-54); Hemoglobin 13.9 g/dL (13.0-16.5); Lymphocyte # 2.38 X10^3/ul (0.83-4.51); Lymphocyte % 45.7 % (19-41); Mean Corp Hgb Conc 32.7 g/dL (32-36); Mean Corpuscular Hgb 30.5 pg (27.0-32.0); Mean Corpuscular Volume 93.2 fL (80-94); Mean Platelet Vol. 10.2 fl (6.2-12.0); Monocyte# 0.52 X10^3/uL; NRBC Flagged by Analyzer 0 % (0-5); Neutrophil # 2.06 X10^3/uL (2.7-7.7); Neutrophil % 39.5 % (47-70); Platelet Count 194 K/mm3 (150-450); RBC Distribution Width CV 12.7 % (11.6-14.6); RBC Distribution Width SD 43.6 fl (35.1-43.9); Red Blood Count 4.56 M/mm3 (4.6-6.2); White Blood Count 5.2 K/mm3 (4.4-11.0)
[2023-05-05 15:45] LABS: ALB/GLOB Ratio 1.2 RATIO (0.9-2.4); AST(SGOT) 25 U/L (15-37); Alanine Aminotransfer ALT/SGPT 25 U/L (16-61); Albumin, Serum 3.9 g/dL (3.2-5.0); Alkaline Phosphatase 54 U/L (45-117); Anion Gap 6 (5-15); BUN 15 mg/dL (7-18); BUN/Creat Ratio 14.2 RATIO (10-20); Calcium,Total 8.9 mg/dL (8.5-10.1); Chloride 104 mmol/L (98-107); Creatinine, Serum 1.06 mg/dL (0.70-1.30); EST Glomerular Filtration Rate 72 mL/min (>60); Est Glom Filt Rate - Afr Amer 87 mL/min (>60); Globulin 3.3 g/dL (2.2-4.2); Glucose 90 mg/dL (74-106); Potassium 4.3 mmol/L (3.5-5.1); Protein, Total 7.2 g/dL (6.4-8.2); Sodium Level 136 mmol/L (136-145)
[2023-05-05 16:39] LABS: Microalbumin,Random Urine < 5.0 mg/L (NO RANGE EST.)
[2023-05-05 16:50] LABS: Amphetamine Urine VISTA NEGATIVE (<1000 ng/mL); Barbiturate Urine VISTA NEGATIVE (< 200 ng/mL); Benzodiazepine Urine VISTA NEGATIVE (< 200 ng/mL); Cocaine Urine VISTA NEGATIVE (< 300 ng/mL); Ecstacy Urine VISTA NEGATIVE (< 500 ng/mL); Methadone Urine VISTA NEGATIVE (< 300 ng/mL); PCP Urine VISTA NEGATIVE (< 25 ng/mL); THC Urine VISTA NEGATIVE (< 50 ng/mL); Vista UDS pH Range 7
== END | disposition home or self-care (01) ==
LOC: MTLAB 11:08
PROVIDERS: PCP Family Medicine; Referring Provider Family Medicine; Visit Provider Family Medicine
DX: M51.36 Other intervertebral disc degeneration, lumbar region (principal); I10 Essential (primary) hypertension
CPT/HCPCS: 36415; 80053; 80307; 82043; 82570; 85025

== ENCOUNTER 2023-07-29 12:10 | Outpatient (CLI) | payer MEDICARE, OTHER, SELFPAY ==
--- OUTSIDE RECORDS SUMMARY | 2023-07-29 12:18 | XMS RPT_ITS | CCD ---
Author Name Unknown Address [address] [place] [address] Organization [facility] Care Team Providers Care It Operations Analyst Name Role Phone THELMA JOLLY JR. Unavailable Unavailable THELMA JOLLY JR. Unavailable Unavailable THELMA JOLLY JR. Unavailable Unavailable THELMA JOLLY JR. Attending Unavailable THELMA JOLLY JR. Primary Care Unavailable THELMA JOLLY JR. Attending Unavailable THELMA JOLLY JR. Primary Care Unavailable VALERIANO VU Attending Unavailable VALERIANO VU Referring Unavailable THELMA JOLLY JR. Primary Care Unavailable Unavailable Primary Care Provider Unavailabl e Medications Current Medications Medication Drug Class(es) Dates Sig (Normalized) Sig (Original) oseltamivir 75 mg oral capsule (2 sources) Neuraminidase Inhibitor Start: 07-20-2022 End: 07-25-2022 take 1 capsule by mouth twice daily oseltamivir (TAMIFLU) 75 mg capsule Indications: Influenza-like illness , Exposure to influenza Take 1 capsule by mouth twice daily for 5 days. 10 capsule 0 07/20/2022 07/25/2022 Active Completed/Discontinued Medications Medication Drug Class(es) Dates Sig (Normalized) Sig (Original) acetaminophen 325 mg / oxyCODONE hydrochloride 5 mg oral tablet (2 sources) Opioid Agonist Start: 07-01-2022 take 0.5-1 tablets by mouth at bedtime oxyCODONE-acetami nophen (PERCOCET) 5-325 mg tablet TAKE 1/2 TO 1 (ONE-HALF TO ONE) TABLET BY MOUTH AT BEDTIME 0 07/01/2022 Active Problems Active Problems Problem Classification Problem Date Documented Da te Episodic/Chronic Immunizations and screening for infectious disease (1 source) Contact with and (suspected) exposure to other viral communicable diseases; Translations: [Contact with or exposure to other viral diseases] Episodic Influenza (1 source) Influenza-like illness; Translations: [Influenza due to unidentified influenza virus with other respiratory manifestations] Episodic Unclassified (1 source) Unknown / UNK(Unknown) Onset: 02-18-2017 Past or Other Problems Problem Classification Problem Date Documented Da te Episodic/Chronic Unclassified (1 source) R06.2,Z12.5,R14. 0 Onset: 02-18-2017 Results Test Name Value Interpretation Reference Range Facil ity Vital Signs Date Time Vital Sign Value Performing Clinician Faci lity 07-20-2022 10:45-0500 Body temperature 100.4 [degF] Chas Jalloh MD Work Phone: [facility] 07-20-2022 10:45-0500 Body weight 79.38 kg Chas Jalloh MD Work Phone: [facility] 07-20-2022 10:45-0500 Diastolic blood pressure 60 mm[Hg] Chas Jalloh MD Work Phone: [facility] 07-20-2022 10:45-0500 Heart rate 96 /min Chas Jalloh MD Work Phone: [facility] 07-20-2022 10:45-0500 Respiratory rate 16 /min Chas Jalloh MD Work Phone: [facility] 07-20-2022 10:45-0500 SaO2% (BldA) [Mass fraction] 95 % Chas Jalloh MD Work Phone: [facility] 07-20-2022 10:45-0500 Systolic blood pressure 122 mm[Hg] Chas Jalloh MD Work Phone: [facility] Encounters Encounter Date Encounter Type Care Provider Facility Start: 07-21-2022 Telephone encounter Jacky davis APRN.CNP Work Phone: [facility] Plan of Treatment Date Care Activity Detail Author Start: 07-20-2022 End: 08-03-2022 Influenza virus A and B RNA and SARS-CoV-2 (COVID-19) N gene panel - Respiratory specimen by NANO with probe detection COVID WITH FLUA+B, ROUTINE Microbiology Routine Influenza-like illness Exposure to influenza Expected: 07/20/2022, Expires: 08/03/2022 [facility] Work Phone: Payers Date Payer Category Payer Unknown [employer] SUPPLEMENT [id number] 2021-Present [phone] [id number] [id number] [employer] [id number] 2018 Private Health Insurance [facility] [id number] 2018 Medicare [id number] 2017 Unknown [id number] 2011 Medicare MEDICARE MEDICAR E A AND B [id number] 2011-Present [phone] [place] [address] Medicare [id number] 1945 Unknown [id number] 1945 Unknown [id number] 1945 Unknown [id number] Social History Date Type Detail Facility Start: 07-20-2022 Tobacco smoking status NHIS Never smoked tobacco [facility] Work Phone: Start: 07-20-2022 Tobacco use and exposure Smokeless tobacco non-user [facility] Work Phone: Start: 1945 Sex Assigned At Not on file [facility] NEGATED: Highlighted rowStart: NINF History of tobacco use Passive smoker [facility] Work Phone: Note 07-21-2022 Telephone Encounter - Nery Griggs - 07/21/2022 10:59 AM ESTTelephone Encounter - Jacky Araujo APRN.CNP - 07/21/2022 9:59 AM EST Note Date & Type Note Facility 07-21-2022 Miscellaneous Notes Formattin g of this note might be different from the original. Patient given results and verbalized understanding of instructions given. Nery Indu Please notify of positive flu, continue tamiflu. Continue with plan of care as discussed during visit. Covid negative documented in this encounter [facility] Influenza virus A and B RNA and SARS-CoV-2 (COVID-19) N gene panel NANO+probe (Resp) 07-20-2022 Note Date & Type Note Facility 07-20-2022 Influenza virus A and B RNA and SARS-CoV-2 (COVID-19) N gene panel NANO+probe (Resp) COVID 19 RESULT: SARS-CoV-2 (Agent of COVID-19) Not Detected by RT-PCR or equivalent method. charu [id number] (THUY)_EUA This test was developed and its performance characteristics determined by [facility]'s [facility]. This test has been authorized by FDA under an Emergency Use Authorization (EUA). This test has been validated in accordance with the FDA's Guidance Document Policy for Diagnostics Testing in Laboratories Certified to Perform High Complexity Testing under CLIA prior to Emergency use Authorization for Coronavirus Disease 2019 during the Public Health Emergency issued on October 09, 2019. Test performed by [facility], [facility] [place], [address] [place] [address]. INFLUENZA A PCR: Positive for Influenza A by RT-PCR INFLUENZA B PCR: Negative for Influenza B by RT-PCR [facility] Progress note 07-20-2022 Note Date & Type Note Facility 07-20-2022 Note HNO ID: [id number] Author: Chas Jalloh MD Service: ? Author Type: Physician Type: Progress Notes Filed: 07/20/2022 11:23 AM Note Text: Patient presents with: Chest Congestion: cough x 1 day, tested + influenza and pneumonia HPI: Feeling sick since yesterday. His is being treated for influenza and pneumonia. Positive symptoms: cough, Chest tightness, Scratchy throat, Nasal Congestion, Rhinorrhea, Fever, Chills, Body Aches, Malaise, Headache, Negative symptoms: Nausea, Vomiting, Diarrhea, OTC: Ibuprofen. Taking amoxicillin for dental implant this week. PAST MEDICAL HISTORY Diagnosis Date BPH (benign prostatic hyperplasia) GERD (gastroesophageal reflux disease) Hyperlipidemia Hypertension MEDICATIONS: Current Outpatient Medications Medication Sig amoxicillin (AMOXIL) 875 mg tablet TAKE 2 TABLETS BY MOUTH 1 HOUR BEFORE PROCEDURE, THEN 1 TAB TWICE DAILY FOR 10 DAYS doxazosin (CARDURA) 1 mg tablet famotidine (PEPCID) 40 mg tablet finasteride (PROSCAR) 5 mg tablet hydroCHLOROthiazide (HYDRODIURIL, ESIDRIX) 12.5 mg tablet lisinopril (ZESTRIL, PRINIVIL) 10 mg tablet oxyCODONE-acetaminophen (PERCOCET) 5-325 mg tablet TAKE 1/2 TO 1 (ONE-HALF TO ONE) TABLET BY MOUTH AT BEDTIME rosuvastatin (CRESTOR) 10 mg tablet No current facility-administered medications for this visit. ALLERGIES: ALLERGIES No Known Allergies VITALS: BP 122/60 Pulse 96 Temp (!) 38 ?C (100.4 ?F) Resp 16 Wt 79.4 kg (175 lb) SpO2 95% PHYSICAL EXAM: GEN: mildly ill appearing HEENT: PERRL, EOMI, conjunctiva clear Ears: canals clear. TMs without erythema, bulge, or effusion Sinuses: non-tender frontal sinus, non-tender maxillary sinuses Throat: moist mucous membranes, mild erythema, no exudate Neck: supple, no thyromegaly, no lymphadenopathy HEART: regular rate and rhythm, no murmurs LUNGS: clear to auscultation, no wheezes or crackles, no increased WOB ASSESSMENT/PLAN: 1. Influenza-like illness - ICD9: 487.1, ICD10: J11.1 (primary diagnosis) 2. Exposure to influenza - ICD9: V01.79, ICD10: Z20.828 - suspect influenza, differential includes COVID-19. - Discussed supportive care treatment with home isolation, rest, cold medicine, and analgesia. - Red flags to seek further treatment include chest pain, shortness of breath, and lethargy; in the ER if severe. Start - OSELTAMIVIR 75 MG CAPSULE - COVID WITH FLUA+B, ROUTINE Chas Jalloh MD [facility] History of Present illness Narrative 07-20-2022 Chas Jalloh MD - 07/20/2022 11:04 AM EST Note Date & Type Note Facility 07-20-2022 History of Presen t illness Narrative Patient presents with: Chest Congestion: cough x 1 day, tested + influenza and pneumonia HPI: Feeling sick since yesterday. His is being treated for influenza and pneumonia. Positive symptoms: cough, Chest tightness, Scratchy throat, Nasal Congestion, Rhinorrhea, Fever, Chills, Body Aches, Malaise, Headache, Negative symptoms: Nausea, Vomiting, Diarrhea, OTC: Ibuprofen. Taking amoxicillin for dental implant this week. PAST MEDICAL HISTORY Diagnosis Date BPH (benign prostatic hyperplasia) GERD (gastroesophageal reflux disease) Hyperlipidemia Hypertension MEDICATIONS: Current Outpatient Medications Medication Sig amoxicillin (AMOXIL) 875 mg tablet TAKE 2 TABLETS BY MOUTH 1 HOUR BEFORE PROCEDURE, THEN 1 TAB TWICE DAILY FOR 10 DAYS doxazosin (CARDURA) 1 mg tablet famotidine (PEPCID) 40 mg tablet finasteride (PROSCAR) 5 mg tablet hydroCHLOROthiazide (HYDRODIURIL, ESIDRIX) 12.5 mg tablet lisinopril (ZESTRIL, PRINIVIL) 10 mg tablet oxyCODONE-acetaminophen (PERCOCET) 5-325 mg tablet TAKE 1/2 TO 1 (ONE-HALF TO ONE) TABLET BY MOUTH AT BEDTIME rosuvastatin (CRESTOR) 10 mg tablet No current facility-administered medications for this visit. ALLERGIES: ALLERGIES No Known Allergies VITALS: BP 122/60 Pulse 96 Temp (!) 38 C (100.4 F) Resp 16 Wt 79.4 kg (175 lb) SpO2 95% PHYSICAL EXAM: GEN: mildly ill appearing HEENT: PERRL, EOMI, conjunctiva clear Ears: canals clear. TMs without erythema, bulge, or effusion Sinuses: non-tender frontal sinus, non-tender maxillary sinuses Throat: moist mucous membranes, mild erythema, no exudate Neck: supple, no thyromegaly, no lymphadenopathy HEART: regular rate and rhythm, no murmurs LUNGS: clear to auscultation, no wheezes or crackles, no increased WOB ASSESSMENT/PLAN: 1. Influenza-like illness - ICD9: 487.1, ICD10: J11.1 (primary diagnosis) 2. Exposure to influenza - ICD9: V01.79, ICD10: Z20.828 - suspect influenza, differential includes COVID-19. - Discussed supportive care treatment with home isolation, rest, cold medicine, and analgesia. - Red flags to seek further treatment include chest pain, shortness of breath, and lethargy; in the ER if severe. Start - OSELTAMIVIR 75 MG CAPSULE - COVID WITH FLUA+B, ROUTINE Chas Jalloh MD documented in this encounter [facility] Evaluation note Note Date & Type Note Facility documented in this encounter [facility] Summary Purpose Family History No Family History Records FoundNo Family History Records FoundNo Family History Records Found Advance Directives No Advanced Directives Records FoundNo Advanced Directives Records FoundNo Advanced Directives Records Found Health Concerns Infection Onset Date Last Indicated Resolved Time COVID-19 Rule-Out 07/20/2022 07/20/2022 Infection Onset Date Last Indicated Resolved Time COVID-19 Rule-Out 07/20/2022 07/20/2022 07/21/2022 4:43 AM EST Additional Source Comments (unrecognized sect ion and content) No Status Records FoundNo Status Records FoundNo Status Records Found INFORMATION SOURCE (unrecogn ized section and content) DATE CREATED AUTHOR AUTHOR'S ORGANIZ ATION 10/08/2018 [facility] ([place]) DATE CREATED AUTHOR AUTHOR'S ORGANIZ ATION 07/21/2022 [facility] Source Comments (unrecognize d section and content) In the event this informatio n is protected by the Federal Confidentiality of Alcohol and Drug Abuse Patient Records regulations: The Federal rules restrict any use of the information to criminally investigate or prosecute any alcohol or drug abuse patient[facility] the event this information is protected by the Federal Confidentiality of Alcohol and Drug Abuse Patient Records regulations: The Federal rules restrict any use of the information to criminally investigate or prosecute any alcohol or drug abuse patient.[facility] Reason for Visit (unrecogniz ed section and content) Reason Comments Results FOR RECORDS PERTAINING TO PATIENTS WHO ARE OR HAVE BEEN ENROLLED IN A CHEMICAL DEPENDENCY/SUBSTANCEABUSE PROGRAM, SOME INFORMATION MAY BE OMITTED. This clinical summary was aggregated from multiple sources. Caution should be exercised in using it in the provision of clinical care. This summary normalizes information from multiple sources, and as a consequence, information in this document may materially change the coding, format and clinical context of patient data. In addition, data may be omitted in some cases. CLINICAL DECISIONS SHOULD BE BASED ON THE PRIMARY CLINICAL RECORDS. [facility]. provides no warranty or guarantee of the accuracy or completeness of information in this document.
[2023-07-29 15:13] LABS: Absolute Lymphocyte Count 2.41 X10^3/uL (0.83-4.51); Absolute Neutrophil Count 1.8 X10^3/uL (2.0-7.7); Basophil# 0.02 X10^3/uL; Basophil% 0.4 % (0-1); Eosinophil# 0.21 X10^3/uL; Eosinophils% 4.2 % (0-5); Hematocrit 43.5 % (40-54); Hemoglobin 14.3 g/dL (13.0-16.5); Lymphocyte # 2.41 X10^3/ul (0.83-4.51); Lymphocyte % 48.3 % (19-41); Mean Corp Hgb Conc 32.9 g/dL (32-36); Mean Corpuscular Volume 91.2 fL (80-94); Mean Platelet Vol. 9.9 fl (6.2-12.0); Monocyte# 0.57 X10^3/uL; Monocyte% 11.4 % (0-10); NRBC Flagged by Analyzer 0 % (0-5); Neutrophil # 1.77 X10^3/uL (2.7-7.7); Neutrophil % 35.5 % (47-70); Platelet Count 171 K/mm3 (150-450); RBC Distribution Width CV 12.6 % (11.6-14.6); RBC Distribution Width SD 42.5 fl (35.1-43.9); Red Blood Count 4.77 M/mm3 (4.6-6.2)
[2023-07-29 15:53] LABS: ALB/GLOB Ratio 1.3 RATIO (0.9-2.4); AST(SGOT) 24 U/L (15-37); Alanine Aminotransfer ALT/SGPT 24 U/L (16-61); Albumin, Serum 3.9 g/dL (3.2-5.0); Alkaline Phosphatase 52 U/L (45-117); Anion Gap 6 (5-15); BUN 15 mg/dL (7-18); BUN/Creat Ratio 14.2 RATIO (10-20); CRP < 2.90 mg/L (0.0-3.0); Calcium,Total 8.9 mg/dL (8.5-10.1); Chloride 106 mmol/L (98-107); Creatinine, Serum 1.06 mg/dL (0.70-1.30); EST Glomerular Filtration Rate 72 mL/min (>60); Est Glom Filt Rate - Afr Amer 87 mL/min (>60); Globulin 3.1 g/dL (2.2-4.2); Glucose 104 mg/dL (74-106); Potassium 4.3 mmol/L (3.5-5.1); Rheumatoid Factor < 10.0 IU/mL (<15); Sodium Level 138 mmol/L (136-145)
[2023-07-31 12:08] LABS: ANTINUCLEAR ANTIBODIES DIRECT Negative (Negative)
== END 2023-07-29 23:59 | disposition home or self-care (01) ==
LOC: MFPLAB 12:11
PROVIDERS: PCP Family Medicine; Visit Provider Family Medicine
DX: M19.042 Primary osteoarthritis, left hand (principal); E66.9 Obesity, unspecified
CPT/HCPCS: 36415; 80053; 85025; 86038; 86140; 86431

== ENCOUNTER 2023-09-17 08:00 | Outpatient (RCR) | payer MEDICARE, OTHER, SELFPAY ==
--- NOTE | 2023-08-12 15:21 | HP.OTEVAL ---
Patient's Visit Information Visit Information Visit Information: NELLA TOWNSEND is a 78 year old M, referred to Occupational Therapy by Dr. Azael Marrero MD, with a diagnosis of trigger finger. Date of Evaluation: 08/08/23 Occupational Therapist: Jennifer Mora Subjective Subjective: Patient arrived for OT evaluation with some L hand CMC joint pain and middle finger trigger finger. Patient reports the middle trigger finger will get stuck from overnight but then loosens up during the day. 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 He reports he's feeling some arthritis in right thumb as well but it's not limiting him as bad. He reports he will feel some achiness and stiffness in all joints of the hands. Reports he also has degenerative disc and low back pain that he takes percocet nightly for. He uses advil for the hand pain. Pain L thumb: Current Pain Intensity: 0 Pain Intensity Range: 6 Objective Objective/Observation: Patient with some swelling at the L hand middle finger PIP and L thumb IP ROM MP: L 25 deg, R 30 deg IP: L flexion 30 deg, R flexion 50 deg ROM Comments: nodule/swelling at L thumb IP Strength Assistant Buyer: R 47; L 29 Lateral Pinch: R 12; L 7 Tripod Pinch: R 10; L 6 Tip-to-Tip Pinch: R 6; L 4 Strength Comments: L hand dominant Sensation Sensation Comments: reports some tingling and numbness in the left hand, noticing when eating. Then the numbness goes away. Quick DASH-Disab of Arm,Shoulder& Hand Quick DASH Score: 45.4525 Goals Goal:: Patient will demonstrate improved functional use of hands for ADL's with reporting pain less than 3/10 on at least 3 consecutive visits before treatment. Goal:: Patient will have improved use of upper body for ADL's evidenced by quick dash score of 40 or less by d/c. Goal:: PAtient will be indep with [facility] providing teachback on proper techniques and strategies for joint protection to improve fxnal use of hands. Rehabilitation General Assessment: Patient seen for left middle finger trigger finger and left thumb IP arthritis and pain. Provided figure 8 splint for trigger finger to wear overnight. Educated on overuse/swelling in the PIP of that joint with plans to work on reducing swelling and maintaining ROM/circulation to that area. Discussed some joint protection related to arthritis and using hands, patient with stiffness in multiple joints of hands but most pain in L thumb. Completed manual therapy to L thumb region and reviewed options for bracing. Discussed he may benefit from a more rigid splint when pain is really flaring up and then more of a neoprene/soft brace to wear other times. Patient trialed comfort cool this date- fit large on the left. Will plan to review at later appt and provide info for ordering pending patient's interest. Will benefit from cont OT services to reduce pain and swelling in L hand trigger finger and thumb, provide splinting recommendations, home exercise program, and improve general function of left hand. Rehabilitation Potential: Good Anticipated Interventions Anticipated Interventions: A/AAROM/PROM, Strengthening, Massage, Desensitization, Orthoses and Joint Protection/Energy Conservation Visit Plan Frequency: 1-2x /Week Duration: 6 Weeks General Plan: use of modalities for pain relief, gentle HEP for maintaining ROM and strength, ed on joint protection for arthritis and activity modifications, manual therapy to improve circulation to area, splinting TEXT: Thank you for the opportunity to evaluate your patient. For Medicare and Medicare HMO plans, please review the plan of care and approve it. It will need to be FAXED BACK to us at [phone] for Medicare purposes. Please let me know if there are questions or concerns regarding this plan of care. Physician Signature: Date:
--- NOTE | 2023-09-25 16:04 | HP.OTDCSUM ---
Discharge Summary D/C Summary: It has been my pleasure to treat NELLA TOWNSEND under orders from Dr. Azael Marrero MD, for the diagnosis of trigger finger for a total of 7 visit(s). Please see the following information for a summary of their discharge status. Overall Improvement % Improvement: 0 Objective Objective/Function: Child Care Worker strength : R 47; L 35# a increase from 29# Lateral Pinch: R 12; L 8# increase from 6# Tripod Pinch: R 10; L 4# a decrease from 6# left RA 35* right 50* left CMC 20* left MP 15* a decrease from 25* left IP 30* a decrease from 40* pt demo understanding of joint protection jackson- but pain has not changed and the thumb stabilization ex have increased pain- therapist rec'd pt return to Dr at this time. Goals Patient Goals: Decrease Pain, Decrease Swelling/Stiffness and Improve Fine Motor Skills Goal:: Patient will demonstrate improved functional use of hands for ADL's with reporting pain less than 3/10 on at least 3 consecutive visits before treatment. Goal:: Patient will have improved use of upper body for ADL's evidenced by quick dash score of 40 or less by d/c. Goal:: PAtient will be indep with [facility] providing teachback on proper techniques and strategies for joint protection to improve fxnal use of hands. Plan Plan: D/C D/C Information Discharge Comments: pt was seen for 7 OT sessions to decrease trigger finger and decrease thumb pain. Pt was ed. on use of joint protection and bracing as well as thumb stabilization ex. pt has noticed no change in pain and objective measurements demo a decrease in pts left thumb ROM. pt to return to . pt agree to POC d/c sentence: If there are questions or concerns regarding this patient's occupational therapy, please fell free to call me at [phone]. Thank you for the referral of this patient. Sincerely, Emelia Harris, OTR/L, CHT
== END 2023-09-17 19:00 | disposition home or self-care (01) ==
LOC: OT 08:00
PROVIDERS: PCP Family Medicine; Visit Provider Family Medicine
DX: M65.342 Trigger finger, left ring finger (principal); M18.0 Bilateral primary osteoarthritis of first carpometacarpal joints
CPT/HCPCS: 97035; 97110; 97140; 97165; 97530

== ENCOUNTER → 2024-02-10 | Outpatient (CLI) | payer MEDICARE, OTHER, SELFPAY ==
[2024-02-10 15:44] LABS: Absolute Lymphocyte Count 2.14 X10^3/uL (0.83-4.51); Absolute Neutrophil Count 2.1 X10^3/uL (2.0-7.7); Basophil# 0.02 X10^3/uL; Basophil% 0.4 % (0-1); Eosinophil# 0.19 X10^3/uL; Eosinophils% 3.7 % (0-5); Hematocrit 42.7 % (40-54); Hemoglobin 14.1 g/dL (13.0-16.5); Lymphocyte # 2.14 X10^3/ul (0.83-4.51); Lymphocyte % 41.6 % (19-41); Mean Corpuscular Volume 90.9 fL (80-94); Mean Platelet Vol. 10.5 fl (6.2-12.0); Monocyte# 0.64 X10^3/uL; Monocyte% 12.5 % (0-10); NRBC Flagged by Analyzer 0 % (0-5); Neutrophil # 2.14 X10^3/uL (2.7-7.7); Neutrophil % 41.6 % (47-70); Platelet Count 184 K/mm3 (150-450); RBC Distribution Width CV 12.7 % (11.6-14.6); RBC Distribution Width SD 42.3 fl (35.1-43.9); White Blood Count 5.1 K/mm3 (4.4-11.0)
[2024-02-10 15:53] LABS: ALB/GLOB Ratio 1.2 RATIO (0.9-2.4); AST(SGOT) 21 U/L (15-37); Alanine Aminotransfer ALT/SGPT 22 U/L (16-61); Albumin, Serum 3.7 g/dL (3.2-5.0); Alkaline Phosphatase 63 U/L (45-117); Anion Gap 8 (5-15); BUN 14 mg/dL (7-18); BUN/Creat Ratio 12.8 RATIO (10-20); Calcium,Total 9.1 mg/dL (8.5-10.1); Chloride 105 mmol/L (98-107); Creatinine, Serum 1.09 mg/dL (0.70-1.30); EST Glomerular Filtration Rate 70 mL/min (>60); Est Glom Filt Rate - Afr Amer 84 mL/min (>60); Globulin 3.2 g/dL (2.2-4.2); Glucose 118 mg/dL (74-106); Potassium 4.2 mmol/L (3.5-5.1); Protein, Total 6.9 g/dL (6.4-8.2); Sodium Level 138 mmol/L (136-145)
== END | disposition home or self-care (01) ==
LOC: MFPLAB 11:37
PROVIDERS: PCP Family Medicine; Visit Provider Family Medicine
DX: M19.042 Primary osteoarthritis, left hand (principal)
CPT/HCPCS: 36415; 80053; 85025

== ENCOUNTER 2024-03-21 12:32 | Inpatient (IN) | payer MEDICARE, OTHER, SELFPAY ==
[2024-03-21] VITALS (7 sets, daily range): BP systolic 106–142; BP diastolic 69–93; PULSE 65–88; RESP 14–19; TEMP 36–36.9; O2SAT 92–98; BMI 28.9
--- NOTE | 2024-03-21 12:38 | EKG12_ITS ---
Test Reason : CP Blood Pressure : / mmHG Vent. Rate : 057 BPM Atrial Rate : 057 BPM P-R Int : 152 ms QRS Dur : 092 ms QT Int : 444 ms P-R-T Axes : 055 049 034 degrees QTc Int : 432 ms Sinus bradycardia Otherwise normal ECG Confirmed by CASEY BARNARD, ARIADNA ([id number]), school photograph editor JORDAN FELIPE ([id number]) on 03/22/2024 9:46:56 AM Referred By: Confirmed By:ARIADNA PEÑA MD
[2024-03-21 13:10] LABS: Absolute Lymphocyte Count 1.73 X10^3/uL (0.83-4.51); Absolute Neutrophil Count 5.6 X10^3/uL (2.0-7.7); Basophil# 0.02 X10^3/uL; Basophil% 0.3 % (0-1); Eosinophil# 0.13 X10^3/uL; Eosinophils% 1.6 % (0-5); Hematocrit 41.5 % (40-54); Hemoglobin 13.8 g/dL (13.0-16.5); Lymphocyte # 1.73 X10^3/ul (0.83-4.51); Lymphocyte % 21.7 % (19-41); Mean Corp Hgb Conc 33.3 g/dL (32-36); Mean Corpuscular Hgb 29.9 pg (27.0-32.0); Mean Corpuscular Volume 89.8 fL (80-94); Mean Platelet Vol. 9.7 fl (6.2-12.0); Monocyte# 0.42 X10^3/uL; Monocyte% 5.3 % (0-10); NRBC Flagged by Analyzer 0 % (0-5); Neutrophil # 5.64 X10^3/uL (2.7-7.7); Neutrophil % 70.8 % (47-70); Platelet Count 165 K/mm3 (150-450); RBC Distribution Width CV 12.4 % (11.6-14.6); RBC Distribution Width SD 40.7 fl (35.1-43.9); Red Blood Count 4.62 M/mm3 (4.6-6.2)
[2024-03-21 13:28] LABS: Anion Gap 6 (5-15); BUN 16 mg/dL (7-18); BUN/Creat Ratio 14.7 RATIO (10-20); Calcium,Total 8.8 mg/dL (8.5-10.1); Chloride 102 mmol/L (98-107); Creatinine, Serum 1.09 mg/dL (0.70-1.30); EST Glomerular Filtration Rate 70 mL/min (>60); Est Glom Filt Rate - Afr Amer 84 mL/min (>60); Glucose 148 mg/dL (74-106); Sodium Level 136 mmol/L (136-145); Troponin-I HS (w/2H Reflex) 5 pg/mL (3.0-78.0)
--- NOTE | 2024-03-21 14:37 | US_ITS ---
STUDY: ABDOMINAL ULTRASOUND - RIGHT UPPER QUADRANT REASON FOR VISIT: Male, 78 years old. ABDOMEN PAIN pain TECHNIQUE: Ultrasound evaluation of the right upper quadrant was performed with real-time and static alberto-scale imaging. TECHNICAL QUALITY: Adequate. COMPARISON: None FINDINGS: Liver: There is normal echogenicity of the liver. The bile ducts are within normal limits. There is hepatic color flow. The direction of portal flow is hepatopetal. There is no demonstrated mass lesion. Gallbladder: Normal distended gallbladder. The gallbladder wall measures 1.3 mm. There is a negative sonographic Forrest''s sign. There is no pericholecystic fluid. There are no gallstones. Common Bile Duct (C.B.D.): The common bile duct measures ( in mm): 8.8 Pancreas: Normal size of the head, body of the pancreas. There is increased echogenicity of the pancreas. There is no demonstrated pancreatic mass or cyst. Right Kidney: Normal size of the right kidney. The right kidney measures 10.8 cm. . Normal renal cortex. Cyst measures 7 mm. There is no right hydronephrosis. Aorta: It is not visualized. There is too much overlying bowel gas. . US/Gallbladder IMPRESSION: No acute findings. Electronically Signed: Theo Rodriguez MD at 16:42 EDT ,
[2024-03-21] MEDS: Morphine 4 MG/ML Syringe IV (14:54)
[2024-03-21] MEDS: Ondansetron 4 MG/2 ML Vial IV (14:54)
[2024-03-21 14:56] LABS: Squamous Epithelial Cells - UA 0 SEEN /hpf (0-5); White Blood Cells 0 SEEN /hpf (0-5)
[2024-03-21 15:00] LABS: Color, Urine Yellow (Yellow); Glucose, Dipstick Normal (Normal); Ketone-Dipstick Negative (Negative); Leukocyte Esterase-Dipstick Negative /ul (Negative); Nitrite-Dipstick Negative (Negative); Occult Blood-Urine 25 /ul (Negative); Protein-Dipstick Negative (Negative); Urine Bilirubin Dipstick Negative (Negative); Urine Clarity Clear (Clear); Urine Urobilinogen Normal (Normal)
[2024-03-21 15:02] LABS: AST(SGOT) 29 U/L (15-37); Alanine Aminotransfer ALT/SGPT 33 U/L (16-61); Albumin, Serum 3.7 g/dL (3.2-5.0); Alkaline Phosphatase 52 U/L (45-117); Bilirubin, Direct 0.42 mg/dL (0.00-0.30); Globulin 3.1 g/dL (2.2-4.2); Lipase 1910 U/L (13-75); Protein, Total 6.8 g/dL (6.4-8.2)
[2024-03-21] MEDS: 0.9% Normal Saline (1000mL) 1,000 ML 125 ML IV (15:04)
[2024-03-21 15:07] LABS: Reflex Troponin-HS? (from REC) Y
[2024-03-21 15:14] LABS: Bacteria 2+ /hpf (None Seen); Mucous, Urine 1+ /hpf (<or=2+); Red Blood Cells-Urine 0-5 SEEN /hpf (0-5)
[2024-03-21 16:16] LABS: Troponin-I HS 5 pg/mL (3.0-78.0)
--- NOTE | 2024-03-21 17:41 | EDS_ITS ---
HPI History of Present Illness Chief Complaint: Abd Pain Informant: patient Narrative Narrative: Patient is a 78-year-old male presenting with epigastric/upper abdominal pain. He states it started after eating breakfast this morning. Notes that around 11 or 1130 this morning. He potatoes and eggs for breakfast. He started feeling some back pain around 10 AM. He notes he feels very bloated in his upper abdomen. Had a good bowel movement this morning. Has a little bit of tightness of the chest but feels like it is more from the stomach. Has some chronic urinary frequency but denies any change in this. Denies any dysuria or hematuria. Feels that when he urinates he empties his bladder completely. Denies fever but did have an episode of chills. Has never had any like this before. Notes a couple days ago he did start having some right lower back pain that is worse with movement. He is not sure if this is related. Surgical history includes appendectomy and right inguinal hernia repair that are remote. Does have a remote history of a stomach ulcer in his 20s but states this feels different. No other complaints or concerns reported at this time [facility] Medical History Hx of gastric ulcer Hypertension Home Medications ?Medication ?Instructions ?Recorded ?Last Taken ?Type doxazosin 1 mg tablet 1 mg PO BID bp 03/21/24 03/21/24 08:00 History famotidine 40 mg tablet 40 mg PO DAILY acid reflux 03/21/24 03/21/24 08:00 History finasteride 5 mg tablet 5 mg PO DAILY prostate 03/21/24 03/20/24 11:30 History hydrochlorothiazide 12.5 mg tablet 12.5 mg PO .every other day bp 03/21/24 03/20/24 08:00 History lisinopril 10 mg tablet 10 mg PO DAILY bp 03/21/24 03/21/24 08:00 History magnesium oxide 400 mg (241.3 mg 400 mg PO BID supplement 03/21/24 03/20/24 17:00 History magnesium) tablet oxycodone-acetaminophen 5 mg-325 1 tab PO .hs pain 03/21/24 03/20/24 22:00 History mg tablet rosuvastatin 10 mg tablet 10 mg PO QHS cholesterol 03/21/24 03/20/24 21:00 History Allergy/AdvReac Type Severity Reaction Status Date / Time No Known Allergies Allergy Verified 03/21/24 12:35 Surgical History History of tonsillectomy History of appendectomy Social History Smoking Status: Former smoker ROS ROS ED Constitutional Constitutional ED: Reports chills; Denies fever(s) Cardiovascular Cardiovascular: Reports chest pain; Denies palpitations Respiratory/Chest Respiratory/Chest: Denies cough or dyspnea Gastrointestinal Gastrointestinal: Reports abdominal pain; Denies constipation, diarrhea, melena, nausea or vomiting Genitourinary Genitourinary ED: Denies dysuria or urinary frequency Musculoskeletal Musculoskeletal: Reports back pain; Denies arthralgias or myalgias Integumentary Denies rash Neurologic Neurologic: Denies headache(s) Hematologic/Lymphatic Hematologic/Lymphatic: Denies easy bleeding or easy bruising EXAM Physical Exam Const Vital Signs: 03/21/24 12:33 03/21/24 12:38 03/21/24 13:19 Temperature 96.8 F L Temperature Source Temporal Pulse Rate 65 Respiratory Rate 19 H Respiratory Effort Short of Breath Blood Pressure 142/93 H Blood Pressure Mean 109 Pulse Ox 98 96 Oxygen Delivery Method Room Air Room Air 03/21/24 14:32 03/21/24 16:00 Temperature Temperature Source Pulse Rate 82 88 Respiratory Rate 14 Respiratory Effort Blood Pressure 127/84 H 124/69 H Blood Pressure Mean 98 87 Pulse Ox 92 Oxygen Delivery Method Room Air Positive well nourished and well developed Constitutional Narrative: Uncomfortable appearing General Appearance ED: well developed and NAD; Negative for pallor HEENT Reports moist mucous membranes Neck supple Chest Wall inspection of chest normal Resp normal respiratory effort and clear to auscultation bilaterally Cardio regular rate and regular rhythm GI GI Narrative: Mildly distended abdomen. Tenderness in the right upper quadrant but does not have a true Forrest sign. Auscultation: hypoactive bowel sounds Palpation: soft and tender epigastric and RUQ; Negative for guarding Back/Spine Back/Spine Narrative: No CVA tenderness. Tenderness palpation of the right SI joints. Reproducible with direct palpation as well as movement. Thoracic Spine / Upper Back: Negative for thoracic spinal tenderness Lumbar Spine / Lower Back: Negative for lumbar spinal tenderness Extremity normal to inspection General Extremety ED: Negative for edema General Extremity: Negative for edema Neuro oriented x3 Sensorium / Orientation: alert Motor Exam: Negative for general weakness Psych mental status grossly normal Skin no rashes or lesions noted and no wounds General Skin Exam: Negative for jaundice or pallor MDM MDM MDM Narrative Medical decision making narrative: Patient is evaluated for worsening upper abdominal pain. He does appear uncomfortable. Is given IV fluids, morphine and Zofran in the emergency room. Protocol orders were placed including a troponin, EKG, CBC and BMP. I did add on a lipase and liver panel given his presentation. I am much more concerned about hepatobiliary pathology versus pancreatitis. Lower suspicion for renal colic. He has equal pulses in all 4 extremities and blood pressure is normal. Low suspicion for acute aortic dissection. Workup is remarkable for an elevated lipase of 1910 consistent with acute pancreatitis. He has a mildly elevated bilirubin which brings to question could he have gallstone pancreatitis. Right upper quadrant ultrasound is ordered which does not show any acute findings. Patient be admitted for pain control, fluids and further workup for his pancreatitis. Is agreeable with this. Case discussed with GI on-call, Dr. Rivera in case he does require MRCP/ERCP. Case is discussed with my physician, Dr. Still. He does request a CT abdomen pelvis prior to transfer upstairs. Patient and family agreeable with this plan of care. Patient roshni hemodynamically stable in the emergency room with improvement of symptoms. Lab Data Attestation: I reviewed the patient's lab results. Labs: Laboratory Results - last 24 hr 03/21/24 03/21/24 03/21/24 12:45 14:50 15:52 WBC 8.0 RBC 4.62 Hgb 13.8 Hct 41.5 MCV 89.8 MCH 29.9 MCHC 33.3 RDW Std Deviation 40.7 RDW Coeff of Janny 12.4 Plt Count 165 MPV 9.7 Immature Gran % (Auto) 0.300 Neut % (Auto) 70.8 H Lymph % (Auto) 21.7 [place] % (Auto) 5.3 Eos % (Auto) 1.6 Baso % (Auto) 0.3 Absolute Neuts (auto) 5.6 Absolute Lymphs (auto) 1.73 Nucleated RBC % 0 Sodium 136 Potassium 4.0 Chloride 102 Carbon Dioxide 28.0 Anion Gap 6 BUN 16 Creatinine 1.09 Est GFR (MDRD) Af Amer 84 Est GFR (MDRD) Non-Af 70 BUN/Creatinine Ratio 14.7 Glucose 148 H Calcium 8.8 Total Bilirubin 1.10 H Direct Bilirubin 0.42 H AST 29 ALT 33 Alkaline Phosphatase 52 Troponin I High Sens 5 5 Total Protein 6.8 Albumin 3.7 Globulin 3.1 Lipase 1910 H Urine Color Yellow Urine Clarity Clear Urine pH 7.0 Ur Specific [place] 1.010 Urine Protein Negative Urine Glucose (UA) Normal Urine Ketones Negative Urine Occult Blood 25 H Urine Nitrite Negative Urine Bilirubin Negative Urine Urobilinogen Normal Ur Leukocyte Esterase Negative Urine RBC 0-5 SEEN Urine WBC 0 SEEN Ur Squamous Epith Cells 0 SEEN Urine Bacteria 2+ Urine Mucus 1+ Radiography Diagnostic Testing: Clinical Impression(s) from Imaging Studies Gallbladder Ultrasound 03/21/24 14:37 IMPRESSION: No acute findings. Electronically Signed: Theo Rodriguez MD at 16:42 EDT Reading Location ID and State: [facility] / [place] , Service support , Rhythm Strip Rhythm Strip: Sinus Rhythm Rate: 57 Ectopy: None EKG Initial EKG: Attestation: I personally reviewed and interpreted this EKG as follows: Interpretation: Sinus Bradycardia Comments: Sinus bradycardia at a rate 57 bpm Normal axis Normal intervals Normal ST segments Discharge Plan Dx/Rx/DC Orders Clinical Impression: Acute pancreatitis Disposition Disposition: Acute Care Hospital [facility] Discharge Date/Time: 03/21/24 19:40
--- NOTE | 2024-03-21 17:41 | CT_ITS ---
STUDY: CT Abdomen And Pelvis W/ Contrast Injection 03/21/2024 7:06 PM REASON FOR EXAM: Male, 78 years old. Abdominal pain Upper abdominal pain, pancreatitis Individualized dose optimization techniques were used for this CT. COMPARISON: None. TECHNIQUE: CT Abdomen And Pelvis W/ Contrast Injection IV 100mL [id number] FINDINGS: There are atherosclerotic calcifications of visualized coronary arteries. The visualized portions of the heart are within normal limits. Normal liver. No calcific gallstones. There is pericholecystic fluid and gallbladder wall enhancement. Normal spleen. Normal pancreas. Free fluid around the gallbladder fossa. Normal bilateral adrenal glands. No acute findings of the right kidney. No acute findings of the left kidney. Normal visualized stomach. Normal small intestine. There are multiple colonic diverticula consistent with diverticulosis. There is non-visualization of the appendix. There are calcifications of the abdominal aorta. This is consistent for atherosclerotic disease. There is NO abdominal aortic aneurysm. Vascular workup can be obtained based on clinical correlation. Normal inferior vena cava. Subcentimeter mesenteric lymph nodes. Normal urinary bladder. There are prostatic calcifications. There is an umbilical hernia containing fat. There are diffuse degenerative changes of the visualized lumbar spine. There is bilateral neural foraminal stenosis at L4-5 and L5-S1. CT/Abdomen/Pelvis W IV Cont ONLY IMPRESSION: (NOT LISTED IN ORDER OF SIGNIFICANCE) Peripelvic ascites. Findings suggesting cholecystitis. Other findings as above. Electronically Signed: Theo Rodriguez MD at 19:09 EDT ,
--- NOTE | 2024-03-21 19:36 | HP.PCM.HOS_ITS ---
HPI - General General Date of Admission: 03/21/24 Date of Service: 03/21/24 Chief Complaint: Acute onset epigastric/upper abdominal pain HPI Narrative NELLA TOWNSEND, is a 78 M who presented to [facility] ED on 03/21/2024 with acute onset epigastric/upper abdominal pain. Patient states that he had severe epigastric/upper abdominal pain with abdominal bloating that started this morning around 10-11 AM after he ate his breakfast. Had never had pain like this before. Denied any abdominal discomfort in the past after eating. Denied any change in bowel movements and had a normal bowel movement this morning prior to eating breakfast. In the ED, was found to have an elevated lipase of 1910 and mildly elevated total bilirubin of 1.10 and direct bilirubin of 0.42. Gallbladder ultrasound was unremarkable. However, CT abdomen pelvis with IV contrast showed pericholecystic fluid and gallbladder wall enhancement concerning for acute cholecystitis. Patient is not an alcohol drinker. Given high concern for gallstone pancreatitis, hospitalist was contacted for admission. I saw the patient at bedside in the ED, several family members present. Patient was mildly fatigued appearing but otherwise sitting up fairly comfortably in bed, conversing normally, in no acute distress. He had been given doses of IV morphine, IV Zofran and started on IV fluids prior to my encounter with moderate relief of symptoms. He did report mild ongoing epigastric/upper abdominal pain and abdominal bloating. He denied any fevers or chills. Denied any chest pain or shortness of breath. He does have chronic low back pain and reports mild worsening of this. He does states that he feels very thirsty and wants to drink water but he does not have much of an appetite. No other acute concerns at this time. [facility] Medical History Hx of gastric ulcer Hypertension Home Medications ?Medication ?Instructions ?Recorded ?Last Taken ?Type doxazosin 1 mg tablet PO 03/21/24 Unknown History famotidine 40 mg tablet 40 mg PO DAILY 03/21/24 03/21/24 History finasteride 5 mg tablet 5 mg PO DAILY 03/21/24 03/21/24 History hydrochlorothiazide 12.5 mg tablet PO 03/21/24 03/21/24 History lisinopril 10 mg tablet 10 mg PO DAILY 03/21/24 03/21/24 History magnesium oxide 400 mg (241.3 mg 400 mg PO BID 03/21/24 Unknown History magnesium) tablet oxycodone-acetaminophen 5 mg-325 1 tab PO pain 03/21/24 Unknown History mg tablet rosuvastatin 10 mg tablet 10 mg PO QHS 03/21/24 03/20/24 History Allergy/AdvReac Type Severity Reaction Status Date / Time No Known Allergies Allergy Verified 03/21/24 12:35 Surgical History History of tonsillectomy History of appendectomy Social History Smoking Status: Former smoker ROS Constitutional Constitutional: Reports fatigue; Denies chills, fever(s) or weakness Eyes Eyes: Denies change in vision Cardiovascular Cardiovascular: Denies chest pain Respiratory/Chest Respiratory/Chest: Denies shortness of breath at rest Gastrointestinal Gastrointestinal: Reports abdominal pain and nausea; Denies constipation, diarrhea, hematochezia, loose stools, melena or vomiting Genitourinary Genitourinary: Denies dysuria Musculoskeletal Musculoskeletal: Reports back pain; Denies arthralgias or myalgias Neurologic Neurologic: Denies dizziness, focal weakness or headache(s) Vital Signs Vital Signs Vital Signs: 03/21/24 12:33 03/21/24 12:38 03/21/24 13:19 Temperature 96.8 F L Temperature Source Temporal Pulse Rate 65 Respiratory Rate 19 H Respiratory Effort Short of Breath Blood Pressure 142/93 H Blood Pressure Mean 109 Pulse Ox 98 96 Oxygen Delivery Method Room Air Room Air 03/21/24 14:32 03/21/24 16:00 03/21/24 17:42 Temperature 97.6 F L Temperature Source Pulse Rate 82 88 88 Respiratory Rate 14 16 Respiratory Effort Blood Pressure 127/84 H 124/69 H 115/71 Blood Pressure Mean 98 87 85 Pulse Ox 92 92 Oxygen Delivery Method Room Air 03/21/24 18:00 Temperature Temperature Source Pulse Rate 87 Respiratory Rate 18 Respiratory Effort Blood Pressure 125/75 H Blood Pressure Mean 91 Pulse Ox 96 Oxygen Delivery Method Room Air Physical Exam Const alert, oriented x3 and no apparent distress Constitutional Narrative: Pleasant elderly male, obese, mildly fatigued appearing, otherwise sitting up comfortably in bed, conversing normally, in no acute distress. General Appearance: cooperative and comfortable HEENT normocephalic, head/scalp atraumatic, hearing grossly normal bilaterally and nasal mucous membranes and turbinates normal HEENT Narrative: Dry mucous membranes. Eyes PERRL, EOMs intact bilaterally and conjunctivae normal Neck full ROM Chest inspection of chest normal Resp normal respiratory effort, normal air movement, no use of accessory muscles and clear to auscultation bilaterally Cardio regular rate, regular rhythm, no murmurs and peripheral pulses 2+ throughout GI GI Narrative: Mild tenderness to palpation in epigastric to right upper quadrant areas. Abdomen otherwise soft and nondistended with normal bowel sounds. Back/Spine normal ROM Extremity normal to inspection, full ROM and no pedal edema Skin no rashes or lesions noted Neuro moves all extremities and no focal motor deficits Speech: speech normal Psych mental status grossly normal Results Lab / Micro Data 03/21/24 12:45 03/21/24 12:45 Labs: Laboratory Results - last 24 hr 03/21/24 12:45: WBC 8.0, RBC 4.62, Hgb 13.8, Hct 41.5, MCV 89.8, MCH 29.9, MCHC 33.3, RDW Std Deviation 40.7, RDW Coeff of Janny 12.4, Plt Count 165, MPV 9.7, Immature Gran % (Auto) 0.300, Neut % (Auto) 70.8 H, Lymph % (Auto) 21.7, [place] % (Auto) 5.3, Eos % (Auto) 1.6, Baso % (Auto) 0.3, Absolute Neuts (auto) 5.6, Absolute Lymphs (auto) 1.73, Nucleated RBC % 0, Sodium 136, Potassium 4.0, Chloride 102, Carbon Dioxide 28.0, Anion Gap 6, BUN 16, Creatinine 1.09, Est GFR (MDRD) Af Amer 84, Est GFR (MDRD) Non-Af 70, BUN/Creatinine Ratio 14.7, Glucose 148 H, Calcium 8.8, Total Bilirubin 1.10 H, Direct Bilirubin 0.42 H, AST 29, ALT 33, Alkaline Phosphatase 52, Troponin I High Sens 5, Total Protein 6.8, Albumin 3.7, Globulin 3.1, Lipase 1910 H 03/21/24 14:50: Urine Color Yellow, Urine Clarity Clear, Urine pH 7.0, Ur Specific [place] 1.010, Urine Protein Negative, Urine Glucose (UA) Normal, Urine Ketones Negative, Urine Occult Blood 25 H, Urine Nitrite Negative, Urine Bilirubin Negative, Urine Urobilinogen Normal, Ur Leukocyte Esterase Negative, Urine RBC 0-5 SEEN, Urine WBC 0 SEEN, Ur Squamous Epith Cells 0 SEEN, Urine Bacteria 2+, Urine Mucus 1+ 03/21/24 15:52: Troponin I High Sens 5 Rhythm Strip Rhythm Strip: Sinus Rhythm Rate: 57 Ectopy: None Imaging Radiology Impression Gallbladder Ultrasound 03/21/24 14:37 IMPRESSION: No acute findings. Electronically Signed: Theo Rodriguez MD at 16:42 EDT , Abdomen/Pelvis CT 03/21/24 17:41 IMPRESSION: (NOT LISTED IN ORDER OF SIGNIFICANCE) Peripelvic ascites. Findings suggesting cholecystitis. Other findings as above. Electronically Signed: Theo Rodriguez MD at 19:09 EDT , Assessment & Plan Assessment/Plan (1) Acute pancreatitis: (2) Cholecystitis: PLAN: Plan Patient is a 78-year-old male who presented [facility] ED on 03/21/2024 with acute onset epigastric/upper abdominal pain. 1. Suspected gallstone pancreatitis with acute cholecystitis ? Admit under inpatient status to [facility]. GI and general surgery consulted. Lipase 1910, total bili 1.10, direct bili 0.42 on admit. Gallbladder ultrasound was unremarkable but CT abdomen pelvis with IV contrast showed pericholecystic fluid and gallbladder wall enhancement concerning for acute cholecystitis. Will keep patient n.p.o. at midnight for possible ERCP tomorrow. Trend LFTs. Pain control with p.o. oxycodone and IV Dilaudid as needed. Nausea control with IV Zofran as needed. IV Zosyn started for antibiotic coverage. Will continue maintenance IV fluids through tomorrow morning. Lipid panel ordered. Chronic medical conditions: ? Obesity: BMI over 30 on admit. Complicates hospital course, care and prognosis. ? Hypertension: Will hold home lisinopril and hydrochlorothiazide for now, restart when able. ? Chronic back pain: Continue home Percocet at night as needed. ? Hyperlipidemia: Continue home statin. ? GERD: Continue home famotidine. ? BPH with obstructive symptoms: Continue home finasteride. DVT prophylaxis: Lovenox CODE STATUS: Full code, verified Expected disposition: Home, TBD Total clinical time spent by myself addressing the patient's medical issues, reviewing all the data, and collaborating with patient's care team: 55 minutes. Charges/Coding Visit Charges Inpatient E&M: 15850 Init Hosp L2
[2024-03-21] MEDS: Lactated Ringers 1,000 ML 125 ML IV (20:42)
[2024-03-21] MEDS: 0.9% Saline Lock 10 ML Syringe IV (20:52)
[2024-03-21] MEDS: HYDROmorphone 0.5 MG/0.5 ML SYRINGE IV (21:17)
[2024-03-21] MEDS: Atorvastatin Calcium 20 MG Tablet PO (21:18)
[2024-03-21] MEDS: Piperacil/Tazobactam 3.375 GM in 0.9% Normal Saline (50mL MB+) 50 ML IV (21:19)
[2024-03-21] MEDS: 0.9% Normal Saline (250mL Bag) 250 ML 15 ML IV (21:25)
[2024-03-22] MEDS: HYDROmorphone 0.5 MG/0.5 ML SYRINGE IV ×2 (02:01→17:52)
[2024-03-22 02:03] VITALS: BP 110/67; PULSE 72; RESP 16; TEMP 36.8; O2SAT 95
[2024-03-22] MEDS: Piperacil/Tazobactam 3.375 GM in 0.9% Normal Saline (50mL MB+) 50 ML IV ×2 (05:14→14:11)
[2024-03-22] MEDS: oxyCODONE 5 MG Tablet PO ×2 (05:23→21:16)
[2024-03-22 06:24] LABS: Hematocrit 37.7 % (40-54); Hemoglobin 12.7 g/dL (13.0-16.5); Mean Corp Hgb Conc 33.7 g/dL (32-36); Mean Corpuscular Hgb 30.3 pg (27.0-32.0); Mean Platelet Vol. 10.1 fl (6.2-12.0); Platelet Count 132 K/mm3 (150-450); RBC Distribution Width CV 12.8 % (11.6-14.6); Red Blood Count 4.19 M/mm3 (4.6-6.2); White Blood Count 9.4 K/mm3 (4.4-11.0)
--- NOTE | 2024-03-22 06:24 | MRI_ITS ---
STUDY: MR CHOLANGIOPANCREATOGRAPHY (MRCP) REASON FOR EXAM: Male, 78 years old. pancreatitis TECHNIQUE: Standard MRCP technique was utilized. 3-D reconstructions were performed. COMPARISON: Ultrasound dated 1123, CT of 03/21/2024 FINDINGS: Gall Bladder: Normal with no distention or demonstrated fixed intraluminal filling defect. Cystic duct: Normal with no demonstrated fixed filling defect. Intrahepatic ducts: Normal visualized intrahepatic ducts with no demonstrated fixed filling defect, dilation or stricture. Common hepatic duct: Normal with no demonstrated fixed filling defect, dilation or stricture. Common bile duct: Normal with no demonstrated fixed filling defect, dilation or stricture. Pancreatic duct: Normal with no demonstrated fixed filling defect, dilation or stricture. MRI/MRCP Abdomen without Contrast IMPRESSION: Normal MR Cholangiopancreatography (MRCP). Electronically Signed: Sam Melchor MD at 10:34 EDT ,
[2024-03-22 06:35] LABS: ALB/GLOB Ratio 1.1 RATIO (0.9-2.4); AST(SGOT) 80 U/L (15-37); Alanine Aminotransfer ALT/SGPT 104 U/L (16-61); Alkaline Phosphatase 57 U/L (45-117); Anion Gap 4 (5-15); BUN 15 mg/dL (7-18); BUN/Creat Ratio 15.8 RATIO (10-20); Calcium,Total 8.4 mg/dL (8.5-10.1); Chloride 105 mmol/L (98-107); Creatinine, Serum 0.95 mg/dL (0.70-1.30); EST Glomerular Filtration Rate 82 mL/min (>60); Est Glom Filt Rate - Afr Amer 99 mL/min (>60); Estimated Creatinine Clearance 60.87 ml/min; Globulin 2.8 g/dL (2.2-4.2); Glucose 110 mg/dL (74-106); Potassium 3.9 mmol/L (3.5-5.1); Protein, Total 5.8 g/dL (6.4-8.2); Sodium Level 134 mmol/L (136-145)
[2024-03-22 07:47] VITALS: BP 95/61; PULSE 71; RESP 16; TEMP 36.7; O2SAT 96
[2024-03-22] MEDS: Enoxaparin 40 MG/0.4 ML Syringe SC (10:16)
[2024-03-22] MEDS: Famotidine 20 MG Tablet 40 MG PO (10:17)
[2024-03-22] MEDS: Finasteride 5 MG Tablet PO (10:17)
--- NOTE | 2024-03-22 10:51 | EX.PCM.CON.S ---
Assessment & Plan Assessment/Plan (1) Acute pancreatitis: PLAN: Patient is a 78-year-old male who is admitted with new onset pancreatitis and concern for gallstone pancreatitis. I do not find any clear clinical evidence to point to this as the etiology for patient's pancreatitis given the absence of gallstones on either ultrasound or MRI imaging in the absence of a typical cholestatic pattern with his liver function testing. Additionally, there is no dilatation of the common bile duct as measured on ultrasound or MR imaging. Patient does have some mild tenderness of the right upper quadrant and there is certainly inflammatory change seen on CT imaging, however, this all appears to be secondary from the primary process of the retroperitoneum centered on the pancreatic head. Thus, I am also unconvinced for a diagnosis of cholecystitis. Defer to gastroenterology, but at this juncture do not find cause to recommend surgical intervention with cholecystectomy. Will plan to repeat physical exam to ensure expected resolution of mild right upper quadrant tenderness on this morning's exam. Michael Urrutia MD General Surgery Endocrine Surgery Pager: [facility] [address] [place] [address], [address] [place] [address] Office: [phone] HPI Consult Data Date of Consult: 03/22/24 HPI Narrative Reason for Consultation: Pancreatitis HPI Narrative: NELLA TOWNSEND, is a 78 M who presents to [facility] with concerns for acute onset epigastric abdominal pain. He arrived to the ER after experiencing the pain yesterday morning at approximately 11 AM. And his shared that they had just finished a breakfast of eggs and potatoes when the pain started. He describes pain radiating through to his back with some associated chills. Denies any associated nausea or vomiting. He also denies any awareness of any fever. This was has only time experiencing this pain. He shares that he had a normal/unremarkable bowel movement earlier that morning. Patient's ER workup was notable for CT imaging that showed evidence of pancreatitis and possible cholecystitis, however, patient's right upper quadrant ultrasound did not show evidence of gallbladder wall thickening, pericholecystic fluid, or gallstones. Moreover the common bile duct was within normal limits for diameter. Notable, also, patient had normal LFTs and alkaline phosphatase which is mildly elevated total bilirubin. Both gastroenterology and surgery were consulted for concern for gallstone pancreatitis. Patient shares that gastroenterology is still to consult but patient was referred for MRCP which was completed this morning and recently resulted as normal. Patient has a remote history of a gastric ulcer (treated when he was in his 20s) and he takes famotidine but sees his current presentation is distinctly different from the symptoms. He has no abdominal surgery history PFSH Medical History Hx of gastric ulcer Hypertension Home Medications ?Medication ?Instructions ?Recorded ?Last Taken ?Type doxazosin 1 mg tablet 1 mg PO BID bp 03/21/24 03/21/24 08:00 History famotidine 40 mg tablet 40 mg PO DAILY acid reflux 03/21/24 03/21/24 08:00 History finasteride 5 mg tablet 5 mg PO DAILY prostate 03/21/24 03/20/24 11:30 History hydrochlorothiazide 12.5 mg tablet 12.5 mg PO .every other day bp 03/21/24 03/20/24 08:00 History lisinopril 10 mg tablet 10 mg PO DAILY bp 03/21/24 03/21/24 08:00 History magnesium oxide 400 mg (241.3 mg 400 mg PO BID supplement 03/21/24 03/20/24 17:00 History magnesium) tablet oxycodone-acetaminophen 5 mg-325 1 tab PO .hs pain 03/21/24 03/20/24 22:00 History mg tablet rosuvastatin 10 mg tablet 10 mg PO QHS cholesterol 03/21/24 03/20/24 21:00 History Allergy/AdvReac Type Severity Reaction Status Date / Time No Known Allergies Allergy Verified 03/21/24 12:35 Surgical History History of tonsillectomy History of appendectomy Social History Smoking Status: Former smoker Physical Exam Const alert, oriented x3, no apparent distress and well nourished General Appearance: cooperative GI GI Narrative: No scars, no visible herniation, nondistended, soft, mildly tender to palpation of the right upper quadrant with negative Forrest sign. Most tenderness is found in the epigastrium. Lab / Micro Data 03/22/24 05:41 03/22/24 05:41 Labs: Laboratory Results - last 24 hr 03/21/24 12:45: WBC 8.0, RBC 4.62, Hgb 13.8, Hct 41.5, MCV 89.8, MCH 29.9, MCHC 33.3, RDW Std Deviation 40.7, RDW Coeff of Janny 12.4, Plt Count 165, MPV 9.7, Immature Gran % (Auto) 0.300, Neut % (Auto) 70.8 H, Lymph % (Auto) 21.7, Moody % (Auto) 5.3, Eos % (Auto) 1.6, Baso % (Auto) 0.3, Absolute Neuts (auto) 5.6, Absolute Lymphs (auto) 1.73, Nucleated RBC % 0, Sodium 136, Potassium 4.0, Chloride 102, Carbon Dioxide 28.0, Anion Gap 6, BUN 16, Creatinine 1.09, Est GFR (MDRD) Af Amer 84, Est GFR (MDRD) Non-Af 70, BUN/Creatinine Ratio 14.7, Glucose 148 H, Calcium 8.8, Total Bilirubin 1.10 H, Direct Bilirubin 0.42 H, AST 29, ALT 33, Alkaline Phosphatase 52, Troponin I High Sens 5, Total Protein 6.8, Albumin 3.7, Globulin 3.1, Lipase 1910 H 03/21/24 14:50: Urine Color Yellow, Urine Clarity Clear, Urine pH 7.0, Ur Specific [place] 1.010, Urine Protein Negative, Urine Glucose (UA) Normal, Urine Ketones Negative, Urine Occult Blood 25 H, Urine Nitrite Negative, Urine Bilirubin Negative, Urine Urobilinogen Normal, Ur Leukocyte Esterase Negative, Urine RBC 0-5 SEEN, Urine WBC 0 SEEN, Ur Squamous Epith Cells 0 SEEN, Urine Bacteria 2+, Urine Mucus 1+ 03/21/24 15:52: Troponin I High Sens 5 03/22/24 05:41: WBC 9.4, RBC 4.19 L, Hgb 12.7 L, Hct 37.7 L, MCV 90.0, MCH 30.3, MCHC 33.7, RDW Std Deviation 42.0, RDW Coeff of Janny 12.8, Plt Count 132 L, MPV 10.1, Sodium 134 L, Potassium 3.9, Chloride 105, Carbon Dioxide 25.0, Anion Gap 4 L, BUN 15, Creatinine 0.95, Estim Creat Clear Calc 60.87, Est GFR (MDRD) Af Amer 99, Est GFR (MDRD) Non-Af 82, BUN/Creatinine Ratio 15.8, Glucose 110 H, Calcium 8.4 L, Total Bilirubin 1.40 H, AST 80 H, ALT 104 H, Alkaline Phosphatase 57, Total Protein 5.8 L, Albumin 3.0 L, Globulin 2.8, Albumin/Globulin Ratio 1.1 Rhythm Strip Rhythm Strip: Sinus Rhythm Rate: 57 Ectopy: None Imaging Radiology Impression Gallbladder Ultrasound 03/21/24 14:37 IMPRESSION: No acute findings. Electronically Signed: Theo Rodriguez MD at 16:42 EDT , Abdomen/Pelvis CT 03/21/24 17:41 IMPRESSION: (NOT LISTED IN ORDER OF SIGNIFICANCE) Peripelvic ascites. Findings suggesting cholecystitis. Other findings as above. Electronically Signed: Theo Rodriguez MD at 19:09 EDT , MRCP 03/22/24 06:24 IMPRESSION: Normal MR Cholangiopancreatography (MRCP). Electronically Signed: Sam Melchor MD at 10:34 EDT , Charges/Coding Visit Charges Inpatient E&M: 34486 Init Hosp L2
--- NOTE | 2024-03-22 10:51 | PCM.PN.HOSP ---
Reason for Visit Reason for Visit: Diagnoses Cholecystitis, unspecified (03/21/24) Acute pancreatitis without necrosis or infection, unspecified (03/21/24) Subjective Subjective Saw patient at bedside this morning, present. Patient was mildly fatigued appearing but otherwise did appear improved from yesterday. He denied any abdominal pain currently. Denied any nausea. Was n.p.o. when I saw him and had just completed his MRCP, was feeling hungry. Wanted to get up and move about the room as able as he was tired of laying in bed. Denied any other acute concerns. Objective Data Objective Data Vital Signs: Vital Signs Temp Pulse Resp BP Pulse Ox O2 Del Method 98.1 F 71 16 95/61 96 Room Air 03/22/24 07:47 03/22/24 07:47 03/22/24 07:47 03/22/24 07:47 03/22/24 07:47 03/22/24 07:47 Oxygen Delivery Method Room Air Weight: 76.43 kg Body Mass Index (BMI) 28.9 Intake & Output: Intake and Output for Last 24 Hours 03/20/24 03/21/24 03/22/24 23:59 23:59 23:59 Intake Total 666.67 / 666.67 1155.21 / 1155.21 Balance 666.67 / 666.67 1155.21 / 1155.21 Lab / Micro Data 03/22/24 05:41 03/22/24 05:41 Labs: Laboratory Results - last 24 hr 03/21/24 12:45: WBC 8.0, RBC 4.62, Hgb 13.8, Hct 41.5, MCV 89.8, MCH 29.9, MCHC 33.3, RDW Std Deviation 40.7, RDW Coeff of Janny 12.4, Plt Count 165, MPV 9.7, Immature Gran % (Auto) 0.300, Neut % (Auto) 70.8 H, Lymph % (Auto) 21.7, Tucker % (Auto) 5.3, Eos % (Auto) 1.6, Baso % (Auto) 0.3, Absolute Neuts (auto) 5.6, Absolute Lymphs (auto) 1.73, Nucleated RBC % 0, Sodium 136, Potassium 4.0, Chloride 102, Carbon Dioxide 28.0, Anion Gap 6, BUN 16, Creatinine 1.09, Est GFR (MDRD) Af Amer 84, Est GFR (MDRD) Non-Af 70, BUN/Creatinine Ratio 14.7, Glucose 148 H, Calcium 8.8, Total Bilirubin 1.10 H, Direct Bilirubin 0.42 H, AST 29, ALT 33, Alkaline Phosphatase 52, Troponin I High Sens 5, Total Protein 6.8, Albumin 3.7, Globulin 3.1, Lipase 1910 H 03/21/24 14:50: Urine Color Yellow, Urine Clarity Clear, Urine pH 7.0, Ur Specific [place] 1.010, Urine Protein Negative, Urine Glucose (UA) Normal, Urine Ketones Negative, Urine Occult Blood 25 H, Urine Nitrite Negative, Urine Bilirubin Negative, Urine Urobilinogen Normal, Ur Leukocyte Esterase Negative, Urine RBC 0-5 SEEN, Urine WBC 0 SEEN, Ur Squamous Epith Cells 0 SEEN, Urine Bacteria 2+, Urine Mucus 1+ 03/21/24 15:52: Troponin I High Sens 5 03/22/24 05:41: WBC 9.4, RBC 4.19 L, Hgb 12.7 L, Hct 37.7 L, MCV 90.0, MCH 30.3, MCHC 33.7, RDW Std Deviation 42.0, RDW Coeff of Janny 12.8, Plt Count 132 L, MPV 10.1, Sodium 134 L, Potassium 3.9, Chloride 105, Carbon Dioxide 25.0, Anion Gap 4 L, BUN 15, Creatinine 0.95, Estim Creat Clear Calc 60.87, Est GFR (MDRD) Af Amer 99, Est GFR (MDRD) Non-Af 82, BUN/Creatinine Ratio 15.8, Glucose 110 H, Calcium 8.4 L, Total Bilirubin 1.40 H, AST 80 H, ALT 104 H, Alkaline Phosphatase 57, Total Protein 5.8 L, Albumin 3.0 L, Globulin 2.8, Albumin/Globulin Ratio 1.1 Radiography Diagnostic Testing: Radiology Impression Gallbladder Ultrasound 03/21/24 14:37 IMPRESSION: No acute findings. Electronically Signed: Theo Rodriguez MD at 16:42 EDT Reading Location ID and State: [facility] / ID , Service support , Abdomen/Pelvis CT 03/21/24 17:41 IMPRESSION: (NOT LISTED IN ORDER OF SIGNIFICANCE) Peripelvic ascites. Findings suggesting cholecystitis. Other findings as above. Electronically Signed: Theo Rodriguez MD at 19:09 EDT , MRCP 03/22/24 06:24 IMPRESSION: Normal MR Cholangiopancreatography (MRCP). Electronically Signed: Sam Melchor MD at 10:34 EDT , Rhythm Strip Rhythm Strip: Sinus Rhythm Rate: 57 Ectopy: None Physical Exam Const alert, oriented x3 and no apparent distress Constitutional Narrative: Pleasant elderly male, obese, sitting up comfortably in bed, conversing normally, in no acute distress. Improving. General Appearance: cooperative and comfortable HEENT normocephalic, head/scalp atraumatic, hearing grossly normal bilaterally, nasal mucous membranes and turbinates normal and moist oral mucous membranes Eyes PERRL, EOMs intact bilaterally and conjunctivae normal Neck full ROM Chest inspection of chest normal Resp normal respiratory effort, normal air movement, no use of accessory muscles and clear to auscultation bilaterally Cardio regular rate, regular rhythm, no murmurs and peripheral pulses 2+ throughout GI GI Narrative: Mild tenderness to palpation in epigastric to right upper quadrant areas. Abdomen otherwise soft and nondistended with normal bowel sounds. Stable. Back/Spine normal ROM Extremity normal to inspection, full ROM and no pedal edema Skin no rashes or lesions noted Neuro moves all extremities and no focal motor deficits Speech: speech normal Psych mental status grossly normal Assessment & Plan Assessment/Plan (1) Acute pancreatitis: (2) Cholecystitis: PLAN: Plan Patient is a 78-year-old male who presented [facility] ED on 03/21/2024 with acute onset epigastric/upper abdominal pain. 1. Acute pancreatitis with concern for acute cholecystitis ? GI and general surgery following. Lipase 1910, total bili 1.10, direct bili 0.42 on admit. Gallbladder ultrasound was unremarkable but CT abdomen pelvis with IV contrast showed pericholecystic fluid and gallbladder wall enhancement concerning for acute cholecystitis. MRCP completed on 03/22, was unremarkable. Per surgery, given low concern for cholecystitis, no need for surgical intervention with cholecystectomy at this point. Per GI, unclear etiology for pancreatitis but patient could have minor issue at the ampulla causing this. However, GI recommended escalation of diet and if patient tolerates this without issue, no need for ERCP during this hospitalization. Will continue current medications for pain and nausea control. IV Zosyn discontinued on 03/22. No need for further IV fluids, encourage p.o. intake. 2. Mild anemia and thrombocytopenia ? Hemoglobin 12.7, platelets 132 on hospital day 2. Only slightly below baseline, suspect in part due to pancreatitis as noted above. Monitor. Chronic medical conditions: ? Obesity: BMI over 30 on admit. Complicates hospital course, care and prognosis. ? Hypertension: Will hold home lisinopril and hydrochlorothiazide for now, restart when able. ? Chronic back pain: Treating pain while inpatient as noted above. ? Hyperlipidemia: Continue home statin. ? GERD: Continue home famotidine. ? BPH with obstructive symptoms: Continue home finasteride. DVT prophylaxis: Lovenox CODE STATUS: Full code, verified Expected disposition: Home, 1 to 2 days Total clinical time spent by myself addressing the patient's medical issues, reviewing all the data, and collaborating with patient's care team: 35 minutes. Charges/Coding Visit Charges Inpatient E&M: 84810 Subs Hosp L2
[2024-03-22 10:55] VITALS: O2SAT 96
--- NOTE | 2024-03-22 11:15 | CASEMGMT ---
DARLINE MARK Assessment Face to Face with patient for initial transition planning/care coordination assessment. DARLINE MARK introduced self and role at [facility], pt voices understanding. Pt is A&Ox4 and is resting comfortably in bed and is calm. Care providers, pharmacy, and demographics verified. Admitting dx: Suspected Gallstone Pancreatitis w Cholecystitis LACE Strata: 1 PCP: Azael Marrero Specialists: Denies Preferred Pharmacy: [facility] Insurance: [facility] A/B, [place] [facility] [place] Prescription Benefit: Yes LNOK: Bard Nicole (W) Living Arrangements: Pt lives with his in a 2 story home with 3 steps to enter ADLs/IADLs: Ind Transportation: Self, . Denies concerns DME: BP Monitor. FWW but does not use. Pt denies further DME uses or needs HHC/SNF: Denies Hx or needs. Pt states that he is active with OP OT at for his left hand Pt?s goal: Home Plan: Home with the continuation of OP OT at . 6-Click is 22. Pt denies the need for HHC or SNF. Pt states that he feels safe with this plan moving forward and denies further questions or concerns at this time. Dilan Wesley RN, CM
[2024-03-22 13:05] LABS: Cholesterol 126 mg/dL (200); High Density Lipoprotein 56 mg/dL; Triglycerides 42 mg/dL; Very Low Density Lipoprotein 8 mg/dL (5-40)
[2024-03-22 15:17] VITALS: BP 133/94; PULSE 74; RESP 16; TEMP 36.7; O2SAT 97
--- NOTE | 2024-03-22 16:30 | EX.PCM.CON.G ---
HPI Consult Data Date of Consult: 03/22/24 HPI Narrative Reason for Consultation: Pancreatitis HPI Narrative: NELLA TOWNSEND, is a 78-year-old male presented with epigastric/upper abdominal pain. He states it started after eating breakfast this morning. Notes that around 11 or 1130 this morning. He potatoes and eggs for breakfast. He started feeling some back pain around 10 AM. He notes he feels very bloated in his upper abdomen. Had a good bowel movement this morning. Has a little bit of tightness of the chest but feels like it is more from the stomach. He had some chronic urinary frequency but denies any change in this. Denies any dysuria or hematuria. He feels that when he urinates he empties his bladder completely. Denies fever but did have an episode of chills. He has never had any like this before. Notes a couple days ago he did start having some right lower back pain that is worse with movement. He is not sure if this is related. Surgical history includes appendectomy and right inguinal hernia repair that are remote. Does have a remote history of a stomach ulcer in his 20s but states this feels different. No other complaints or concerns reported at this time. Labs were analysis: WBC 9.4,Hgb 12.7 L,Plt Count 132 L, Sodium 134 L, Potassium 3.9, Chloride 105, Carbon Dioxide 25.0, Anion Gap 4 L, BUN 15, Creatinine 0.95 Total Bilirubin 1.40 H, AST 80 H, ALT 104 H, Alkaline Phosphatase 57, Total Protein 5.8 L, Albumin 3.0 L Triglycerides 42, Cholesterol 126, LDL Cholesterol 62, VLDL Cholesterol 8, HDL Cholesterol 56 Ultrasound of the liver: Liver: There is normal echogenicity of the liver. The bile ducts are within normal limits. There is hepatic color flow. The direction of portal flow is hepatopetal. There is no demonstrated mass lesion. Gallbladder: Normal distended gallbladder. The gallbladder wall measures 1.3 mm. There is a negative sonographic Forrest''s sign. There is no pericholecystic fluid. There are no gallstones. Common Bile Duct (C.B.D.): The common bile duct measures ( in mm): 8.8 CT scan abdomen pelvis: Normal liver. No calcific gallstones. There is pericholecystic fluid and gallbladder wall enhancement. Normal spleen. Normal pancreas. Free fluid around the gallbladder fossa. Normal bilateral adrenal glands. No acute findings of the right kidney. No acute findings of the left kidney. Normal visualized stomach. Normal small intestine. There are multiple colonic diverticula consistent with diverticulosis. There is non-visualization of the appendix. MRCP of the liver: Gall Bladder: Normal with no distention or demonstrated fixed intraluminal filling defect. Cystic duct: Normal with no demonstrated fixed filling defect. Intrahepatic ducts: Normal visualized intrahepatic ducts with no demonstrated fixed filling defect, dilation or stricture. Common hepatic duct: Normal with no demonstrated fixed filling defect, dilation or stricture. Common bile duct: Normal with no demonstrated fixed filling defect, dilation or stricture. Pancreatic duct: Normal with no demonstrated fixed filling defect, dilation or stricture. [facility] Medical History Hx of gastric ulcer Hypertension Home Medications ?Medication ?Instructions ?Recorded ?Last Taken ?Type doxazosin 1 mg tablet 1 mg PO BID bp 03/21/24 03/21/24 08:00 History famotidine 40 mg tablet 40 mg PO DAILY acid reflux 03/21/24 03/21/24 08:00 History finasteride 5 mg tablet 5 mg PO DAILY prostate 03/21/24 03/20/24 11:30 History hydrochlorothiazide 12.5 mg tablet 12.5 mg PO .every other day bp 03/21/24 03/20/24 08:00 History lisinopril 10 mg tablet 10 mg PO DAILY bp 03/21/24 03/21/24 08:00 History magnesium oxide 400 mg (241.3 mg 400 mg PO BID supplement 03/21/24 03/20/24 17:00 History magnesium) tablet oxycodone-acetaminophen 5 mg-325 1 tab PO .hs pain 03/21/24 03/20/24 22:00 History mg tablet rosuvastatin 10 mg tablet 10 mg PO QHS cholesterol 03/21/24 03/20/24 21:00 History Allergy/AdvReac Type Severity Reaction Status Date / Time No Known Allergies Allergy Verified 03/21/24 12:35 Surgical History History of tonsillectomy History of appendectomy Social History Smoking Status: Former smoker ROS Review of Systems ROS Unobtainable: other Constitutional Constitutional: Reports fatigue; Denies chills, fever(s) or weakness Eyes Eyes: Denies change in vision ENT HEENT: Denies mouth lesions Cardiovascular Cardiovascular: Denies chest pain Respiratory/Chest Respiratory/Chest: Denies shortness of breath at rest Gastrointestinal Gastrointestinal: Reports abdominal pain and nausea; Denies constipation, diarrhea, hematochezia, loose stools, melena or vomiting Genitourinary Genitourinary: Denies dysuria Musculoskeletal Musculoskeletal: Reports back pain; Denies arthralgias or myalgias Integumentary Integumentary: Denies jaundice Neurologic Neurologic: Denies dizziness, focal weakness or headache(s) Psychiatric Psychiatric: Denies confusion, depression, memory loss, mood swings, paranoia or suicidal ideation Endocrine Endocrinology: Denies systems reviewed and no addt'l complaints, except as documented Hematologic/Lymphatic Hematologic/Lymphatic: Denies anemia, easy bleeding, easy bruising or lymphadenopathy Allergic/Immunologic Allergic/Immunologic: Denies systems reviewed and no addt'l complaints, except as documented Physical Exam Const alert, oriented x3, no apparent distress and well nourished General Appearance: cooperative GI GI Narrative: No scars, no visible herniation, nondistended, soft, mildly tender to palpation of the right upper quadrant with negative Forrest sign. Most tenderness is found in the epigastrium. Lab / Micro Data 03/22/24 05:41 03/22/24 05:41 Labs: Laboratory Results - last 24 hr 03/22/24 05:41: WBC 9.4, RBC 4.19 L, Hgb 12.7 L, Hct 37.7 L, MCV 90.0, MCH 30.3, MCHC 33.7, RDW Std Deviation 42.0, RDW Coeff of Janny 12.8, Plt Count 132 L, MPV 10.1, Sodium 134 L, Potassium 3.9, Chloride 105, Carbon Dioxide 25.0, Anion Gap 4 L, BUN 15, Creatinine 0.95, Estim Creat Clear Calc 60.87, Est GFR (MDRD) Af Amer 99, Est GFR (MDRD) Non-Af 82, BUN/Creatinine Ratio 15.8, Glucose 110 H, Calcium 8.4 L, Total Bilirubin 1.40 H, AST 80 H, ALT 104 H, Alkaline Phosphatase 57, Total Protein 5.8 L, Albumin 3.0 L, Globulin 2.8, Albumin/Globulin Ratio 1.1, Triglycerides 42, Cholesterol 126, LDL Cholesterol 62, VLDL Cholesterol 8, HDL Cholesterol 56 Rhythm Strip Rhythm Strip: Sinus Rhythm Rate: 57 Ectopy: None Imaging Radiology Impression Gallbladder Ultrasound 03/21/24 14:37 IMPRESSION: No acute findings. Electronically Signed: Theo Rodriguez MD at 16:42 EDT , Abdomen/Pelvis CT 03/21/24 17:41 IMPRESSION: (NOT LISTED IN ORDER OF SIGNIFICANCE) Peripelvic ascites. Findings suggesting cholecystitis. Other findings as above. Electronically Signed: Theo Rodriguez MD at 19:09 EDT , MRCP 03/22/24 06:24 IMPRESSION: Normal MR Cholangiopancreatography (MRCP). Electronically Signed: Sam Melchor MD at 10:34 EDT , Assessment & Plan Assessment/Plan (1) Acute pancreatitis: PLAN: 78-year-old gentleman with BPH, hypertension, hypercholesterolemia presents with complaints of vomiting and?epigastric pain. Blood tests showed elevated pancreatic enzyme levels, whereas imaging studies showed just an area of increased density in the surrounding fatty tissue and some cholecystic fluid (on one image) and adominal fluid (on another image) . Also there was atrophy of the pancreatic parenchyma in the pancreatic body and tail?and dilatation of the main pancreatic duct were observed. The patient was diagnosed with acute pancreatitis, was kept nil by mouth, and was administered supplemental fluids. His symptoms are improving. Age-related anatomical and histological changes in the pancreas may influence the development of pancreatitis, making it difficult to rule out the possibility of cancer. As?age-related changes in the pancreas could lead to the development of pancreatitis. Today his bilirubin along with AST and ALT have increased. His alk phos remains the same. His bile duct was 8.8 mm which is higher than within normal limits for someone with a gallbladder. MRI?and MRCP?does not reveal and enlarged pancreatic head on T2-weighted imaging . The surrounding fatty tissues also do not show inflammation on T2WI high-signal areas. The main pancreatic duct was not dilated. There is some atrophy was observed in the pancreatic parenchyma within the caudal portion of the pancreatic body. Diverticulum formation?in the duodenum next to the ampulla of Vater can cause pancreatic duct obstruction, which can lead to pancreatitis . The frequency of diverticula reportedly increases with age. In present epidemiology, alcohol and gallstones are still the major causes of pancreatitis. However, as the population ages, the causes of pancreatitis have become more diverse.? The differential diagnosis does include autoimmune pancreatitis, IgG associated pancreatitis ,choledocholithiasis and associated pancreatitis, medication induced pancreatitis. With his enzymes going up today that increases the pretest probability of autoimmune pancreatitis, sphincter of Oddi type II and choledocholithiasis (make because of almost 9 mm common bile duct). This also could be local inflammation from an abnormality in the duodenum causing elevated lipase level without injury seen to the pancreas itself. I think he would likely benefit from evaluation of his ampulla with biopsies and ambulate for autoimmune disease affecting the ampulla. He may also benefit from empiric sphincterotomy if this is type II sphincter of Oddi or ampullary lesion. Along with, ESR, CRP, ANCA, DAMARIS, IgG4, celiac panel, CARLO plus protein electrophoresis, CA 19-9 Charges/Coding Visit Charges Inpatient E&M: 11865 Init Hosp L3
[2024-03-22] MEDS: 0.9% Saline Lock 10 ML Syringe IV (17:51)
[2024-03-22] MEDS: Atorvastatin Calcium 20 MG Tablet PO (21:14)
[2024-03-22] MEDS: Acetaminophen 325 MG Tablet 650 MG PO (21:16)
[2024-03-22 21:17] VITALS: BP 151/77; PULSE 63; RESP 16; TEMP 37.2; O2SAT 97
[2024-03-22 21:22] VITALS: BP 151/77; PULSE 63; RESP 16; TEMP 37.2; O2SAT 97
[2024-03-23] VITALS (12 sets, daily range): BP systolic 117–159; BP diastolic 66–92; PULSE 60–84; RESP 14–16; TEMP 36.3–37.1; O2SAT 92–97
[2024-03-23 07:07] LABS: Hematocrit 37.4 % (40-54); Hemoglobin 12.5 g/dL (13.0-16.5); Mean Corp Hgb Conc 33.4 g/dL (32-36); Mean Corpuscular Hgb 30.3 pg (27.0-32.0); Mean Corpuscular Volume 90.8 fL (80-94); Platelet Count 141 K/mm3 (150-450); RBC Distribution Width CV 12.8 % (11.6-14.6); RBC Distribution Width SD 42.4 fl (35.1-43.9); Red Blood Count 4.12 M/mm3 (4.6-6.2); White Blood Count 6.9 K/mm3 (4.4-11.0)
[2024-03-23 07:25] LABS: ALB/GLOB Ratio 0.9 RATIO (0.9-2.4); AST(SGOT) 43 U/L (15-37); Alanine Aminotransfer ALT/SGPT 66 U/L (16-61); Albumin, Serum 3.1 g/dL (3.2-5.0); Alkaline Phosphatase 56 U/L (45-117); Anion Gap 5 (5-15); BUN 11 mg/dL (7-18); BUN/Creat Ratio 11.4 RATIO (10-20); Calcium,Total 8.8 mg/dL (8.5-10.1); Chloride 105 mmol/L (98-107); Creatinine, Serum 0.96 mg/dL (0.70-1.30); EST Glomerular Filtration Rate 80 mL/min (>60); Est Glom Filt Rate - Afr Amer 97 mL/min (>60); Estimated Creatinine Clearance 60.24 ml/min; Globulin 3.3 g/dL (2.2-4.2); Glucose 95 mg/dL (74-106); Potassium 3.7 mmol/L (3.5-5.1); Protein, Total 6.4 g/dL (6.4-8.2); Sodium Level 135 mmol/L (136-145)
[2024-03-23] MEDS: Finasteride 5 MG Tablet PO (08:20)
[2024-03-23] MEDS: Famotidine 20 MG Tablet 40 MG PO (08:21)
--- NOTE | 2024-03-23 10:14 | PN.SURG_ITS ---
Subjective Subjective Patient is evaluated resting comfortably in bed. He denies any abdominal pain in the right upper quadrant, nausea, vomiting. Objective Data Objective Data Vital Signs: Vital Signs Temp Pulse Resp BP Pulse Ox O2 Del Method 98.3 F 60 16 148/83 H 95 Room Air 03/23/24 08:10 03/23/24 08:10 03/23/24 08:10 03/23/24 08:10 03/23/24 10:07 03/23/24 10:07 Oxygen Delivery Method Room Air Weight: 168 lb 8 oz Body Mass Index (BMI) 28.9 Intake & Output: Intake and Output for Last 24 Hours 03/21/24 03/22/24 03/23/24 23:59 23:59 23:59 Intake Total 666.67 / 666.67 1192.71 / 1192.71 600 / 600 Balance 666.67 / 666.67 1192.71 / 1192.71 600 / 600 Lab / Micro Data 03/23/24 06:13 03/23/24 06:13 Labs: Laboratory Results - last 24 hr 03/22/24 05:41: Triglycerides 42, Cholesterol 126, LDL Cholesterol 62, VLDL Cholesterol 8, HDL Cholesterol 56 03/23/24 06:13: WBC 6.9, RBC 4.12 L, Hgb 12.5 L, Hct 37.4 L, MCV 90.8, MCH 30.3, MCHC 33.4, RDW Std Deviation 42.4, RDW Coeff of Janny 12.8, Plt Count 141 L, MPV 10.0, Sodium 135 L, Potassium 3.7, Chloride 105, Carbon Dioxide 25.0, Anion Gap 5, BUN 11, Creatinine 0.96, Estim Creat Clear Calc 60.24, Est GFR (MDRD) Af Amer 97, Est GFR (MDRD) Non-Af 80, BUN/Creatinine Ratio 11.4, Glucose 95, Calcium 8.8, Total Bilirubin 1.30 H, AST 43 H, ALT 66 H, Alkaline Phosphatase 56, Total Protein 6.4, Albumin 3.1 L, Globulin 3.3, Albumin/Globulin Ratio 0.9 Radiography Diagnostic Testing: Radiology Impression MRCP 03/22/24 06:24 IMPRESSION: Normal MR Cholangiopancreatography (MRCP). Electronically Signed: Sam Melchor MD at 10:34 EDT , Rhythm Strip Rhythm Strip: Sinus Rhythm Rate: 57 Ectopy: None Physical Exam GI GI Narrative: Abdomen- soft, nontender to the RUQ with palpation. Assessment & Plan Assessment/Plan (1) Acute pancreatitis: QUALIFIERS: Pancreatitis type: unspecified pancreatitis type A cute pancreatitis complication: unspecified Qualified Code(s): K85.90 - Acute pancreatitis without necrosis or infection, unspecified PLAN: I am seeing this patient in conjunction with Dr. Urrutia. He has independently evaluated this patient. Patient scheduled for an ERCP MRCP was completed yesterday and demonstrated a normal/unremarkable image No surgical intervention is being recommended at this time We will continue to monitor this patient Charges/Coding Visit Charges Inpatient E&M: 27194 [facility] [[email or web address]] Hosp L1
--- NOTE | 2024-03-23 11:13 | PCM.PN.HOSP ---
Reason for Visit Reason for Visit: Diagnoses Cholecystitis, unspecified (03/21/24) Acute pancreatitis without necrosis or infection, unspecified (03/21/24) Subjective Subjective Saw patient at bedside this morning, present. Dr. Rivera saw the patient yesterday afternoon and determined that ERCP would be helpful for further workup for him so patient has been n.p.o. since midnight with plan for ERCP earlier this afternoon. He feels about the same as yesterday, denies any acute pain or discomfort at rest. Notes that he did do okay with liquid diet yesterday afternoon though he and note he did have excess gas after eating. No other new concerns today. Objective Data Objective Data Vital Signs: Vital Signs Temp Pulse Resp BP Pulse Ox O2 Del Method 98.3 F 60 16 148/83 H 95 Room Air 03/23/24 08:10 03/23/24 08:10 03/23/24 08:10 03/23/24 08:10 03/23/24 10:07 03/23/24 10:07 Oxygen Delivery Method Room Air Weight: 76.43 kg Body Mass Index (BMI) 28.9 Intake & Output: Intake and Output for Last 24 Hours 03/21/24 03/22/24 03/23/24 23:59 23:59 23:59 Intake Total 666.67 / 666.67 1192.71 / 1192.71 600 / 600 Balance 666.67 / 666.67 1192.71 / 1192.71 600 / 600 Lab / Micro Data 03/23/24 06:13 03/23/24 06:13 Labs: Laboratory Results - last 24 hr 03/22/24 05:41: Triglycerides 42, Cholesterol 126, LDL Cholesterol 62, VLDL Cholesterol 8, HDL Cholesterol 56 03/23/24 06:13: WBC 6.9, RBC 4.12 L, Hgb 12.5 L, Hct 37.4 L, MCV 90.8, MCH 30.3, MCHC 33.4, RDW Std Deviation 42.4, RDW Coeff of Janny 12.8, Plt Count 141 L, MPV 10.0, Sodium 135 L, Potassium 3.7, Chloride 105, Carbon Dioxide 25.0, Anion Gap 5, BUN 11, Creatinine 0.96, Estim Creat Clear Calc 60.24, Est GFR (MDRD) Af Amer 97, Est GFR (MDRD) Non-Af 80, BUN/Creatinine Ratio 11.4, Glucose 95, Calcium 8.8, Total Bilirubin 1.30 H, AST 43 H, ALT 66 H, Alkaline Phosphatase 56, Total Protein 6.4, Albumin 3.1 L, Globulin 3.3, Albumin/Globulin Ratio 0.9 Rhythm Strip Rhythm Strip: Sinus Rhythm Rate: 57 Ectopy: None Physical Exam Const alert, oriented x3 and no apparent distress Constitutional Narrative: Pleasant elderly male, obese, sitting up comfortably in bed, conversing normally, in no acute distress. Stable. General Appearance: cooperative and comfortable HEENT normocephalic, head/scalp atraumatic, hearing grossly normal bilaterally, nasal mucous membranes and turbinates normal and moist oral mucous membranes Eyes PERRL, EOMs intact bilaterally and conjunctivae normal Neck full ROM Chest inspection of chest normal Resp normal respiratory effort, normal air movement, no use of accessory muscles and clear to auscultation bilaterally Cardio regular rate, regular rhythm, no murmurs and peripheral pulses 2+ throughout GI GI Narrative: Mild tenderness to palpation in epigastric to right upper quadrant areas. Abdomen otherwise soft and nondistended with normal bowel sounds. Stable. Back/Spine normal ROM Extremity normal to inspection, full ROM and no pedal edema Skin no rashes or lesions noted Neuro moves all extremities and no focal motor deficits Speech: speech normal Psych mental status grossly normal Assessment & Plan Assessment/Plan (1) Acute pancreatitis: QUALIFIERS: Pancreatitis type: unspecified pancreatitis type Acute pancreatitis complication: unspecified Qualified Code(s): K85.90 - Acute pancreatitis without necrosis or infection, unspecified (2) Cholecystitis: PLAN: Plan Patient is a 78-year-old male who presented [facility] ED on 03/21/2024 with acute onset epigastric/upper abdominal pain. 1. Acute pancreatitis with concern for acute cholecystitis ? GI and general surgery following. Lipase 1910, total bili 1.10, direct bili 0.42 on admit. Gallbladder ultrasound was unremarkable but CT abdomen pelvis with IV contrast showed pericholecystic fluid and gallbladder wall enhancement concerning for acute cholecystitis. MRCP completed on 03/22, was unremarkable. Per surgery, given low concern for cholecystitis, no need for surgical intervention with cholecystectomy at this point. Per GI, unclear etiology for pancreatitis but patient could have minor issue at the ampulla causing this. ERCP planned for later today, will follow-up on result. Continue current medications for pain and nausea control. IV Zosyn discontinued on 03/22. No need for further IV fluids, encourage p.o. intake. 2. Mild anemia and thrombocytopenia ? Hemoglobin 12.7, platelets 132 on hospital day 2. Remaining stable. Only slightly below baseline, suspect in part due to pancreatitis as noted above. Monitor. Chronic medical conditions: ? Obesity: BMI over 30 on admit. Complicates hospital course, care and prognosis. ? Hypertension: Will hold home lisinopril and hydrochlorothiazide for now, restart when able. ? Chronic back pain: Treating pain while inpatient as noted above. ? Hyperlipidemia: Continue home statin. ? GERD: Continue home famotidine. ? BPH with obstructive symptoms: Continue home finasteride. DVT prophylaxis: Lovenox CODE STATUS: Full code, verified Expected disposition: Home, 1 to 2 days Total clinical time spent by myself addressing the patient's medical issues, reviewing all the data, and collaborating with patient's care team: 35 minutes. Charges/Coding Visit Charges Inpatient E&M: 44908 Subs Hosp L2
[2024-03-23] MEDS: Lactated Ringers 1,000 ML 15 ML IV (15:10)
--- NOTE | 2024-03-23 15:30 | PRE.ANES_ITS ---
ASA Classification* ASA Classification ASA Classification: 2 Assessment & Plan Anesthesia* Anesthesia Assessment Anesthesia Assessment: Discussed sedation and/or anesthesia options, risks, benefits, and alternatives with patient/parents/legal guardian/POA. Questions invited. The patient/parents/legal guardian/POA seems to understand and agrees to proceed with anesthesia plan. Reviewed the physical assessment, medical history, allergy history and patient home medications list prior to surgery/procedure/anesthetic and documented any changes. Performed airway and anesthesia risk assessments. Anesthesia Type Anesthesia Type: General History Source History Obtained from:: Patient and Chart Anesthesia Focused Assessment* Temperature: 97.4 F Pulse Rate: 65 Blood Pressure: 156/83 Respiratory Rate: 16 Pulse Ox: 97 Oxygen Delivery Method: Room Air Airway Assessment Mouth opens: >3 cm Mallampati Score: II Teeth Condition: Caps/Crowns (Patient has 2 crowns and 2 implants. They are all tight.) Neck Range of motion (ROM): Full ROM Pertinent Findings EKG Pertinent Findings:: March 21, 2024. Sinus bradycardia at 57 bpm. Focused Labs Anesthesia Preop lab: CBC WBC 6.9 K/mm3 (4.4-11.0) 03/23/24 06:13 RBC 4.12 M/mm3 (4.6-6.2) L 03/23/24 06:13 Hgb 12.5 g/dL (13.0-16.5) L 03/23/24 06:13 Hct 37.4 % (40-54) L 03/23/24 06:13 Plt Count 141 K/mm3 (150-450) L 03/23/24 06:13 CHEMISTRY Potassium 3.7 mmol/L (3.5-5.1) 03/23/24 06:13 Sodium 135 mmol/L (136-145) L 03/23/24 06:13 Magnesium 2.3 mg/dL (1.6-2.6) 01/28/19 15:55 BUN 11 mg/dL (7-18) 03/23/24 06:13 Creatinine 0.96 mg/dL (0.70-1.30) 03/23/24 06:13 Glucose 95 mg/dL (74-106) 03/23/24 06:13 TSH 4.76 uIU/mL (0.358-3.74) H 05/07/21 09:15 COAG Pre-Assessment Diagnosis/Proposed Procedure Planned Operative Procedure(s): Endoscopic retrograde cholangiopancreatography Anesthesia History 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 When Was Last Pacemaker Check QUESTION #4 FULL TEXT: You/Your Family Experience fever (hyperthermia) with Anesthesia Last Oral Intake Last Oral intake: Last Oral Intake NPO since Meds taken in AM with sips of water? Meds patient instructed to take am of surgery Any additional information?: Yes NPO since: 00:00 Meds taken in AM with sips of water?: Yes PONV PONV - digital content marketing manager: PONV - digital content marketing manager Female HX of Motion Sickness HX of N/V After Surgery Non-Smoker Duration of Surgery greater than 60 minutes Number of Risk Factors PONV Score Height & Weight Height & Weight: Anesthesia: Height & Weight Height 5 ft 4 in 03/22/24 11:27 Weight: 76.43 kg 03/22/24 11:27 Body Mass Index (BMI) 28.9 03/21/24 20:03 Respiratory Assessment Respiratory Assessment - digital content marketing manager: Respiratory Tract Infection Hx - digital content marketing manager Hx Respiratory Tract Infection No 03/22/24 06:21 STOP Sleep Apnea STOP Sleep Apnea - digital content marketing manager: STOP Sleep Apnea - digital content marketing manager Hx Hypertension Yes 03/21/24 20:03 Hx Sleep Apnea No 03/21/24 20:03 CPAP BIPAP Do you snore loudly (louder Yes 03/21/24 20:03 than talking or can be heard Do you often feel tired/ No 03/21/24 20:03 fatigued/ sleepy during daytime? Has anyone observed you stop No 03/21/24 20:03 breathing during sleep? STOP Results Positive 03/21/24 20:03 QUESTION #5 FULL TEXT : Do you snore loudly (louder than talking or can be heard through closed doors)? 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 Specify any problems Hx of Preganancy in last 3 N/A 03/21/24 20:03 Months Nurse Filling Out Transfusion [email or web address] 03/21/24 20:03 & Questions: Date: 03/21/24 03/21/24 20:03 Time: 20:06 03/21/24 20:03 Patient unable to answer at this time (ie. confused, unrespo /Reproduction History /Reproductive History - digital content marketing manager: /Reproductive Hx- digital content marketing manager Hx Now na 03/22/24 06:21 Gestational Age (in weeks): EDC: Hx Hx Para Hx Section SAB No 03/22/24 06:21 Active Medications Active Medications: Current Medications Generic Name Dose Route Start Last Admin Trade Name Freq PRN Reason Stop Dose Admin Acetaminophen 650 mg 03/21/24 20:23 03/22/24 21:16 Acetaminophen 325 Mg Tablet PO 650 mg Q6H PRN PRN Administration Pain 1-10 Or Fever>100.7 Atorvastatin Calcium 20 mg 03/21/24 22:00 03/22/24 21:14 Atorvastatin Calcium 20 Mg Tablet PO 20 mg QHS CRISTY Administration Enoxaparin Sodium 40 mg 03/22/24 10:00 03/22/24 10:16 Enoxaparin 40 Mg/0.4 Ml Syringe SC 40 mg DAILY CRISTY Administration Famotidine 40 mg 03/22/24 10:00 03/23/24 08:21 Famotidine 20 Mg Tablet PO 40 mg DAILY CRISTY Administration Finasteride 5 mg 03/22/24 10:00 03/23/24 08:20 Finasteride 5 Mg Tablet PO 5 mg DAILY CRISTY Administration Hydromorphone HCl 0.5 mg 03/21/24 20:23 03/22/24 17:52 Hydromorphone 0.5 Mg/0.5 Ml Syringe IV 0.5 mg Q4H PRN PRN Administration Pain Score 6-10 Sodium Chloride 250 mls @ 15 mls/hr 03/21/24 20:54 03/22/24 05:00 IV 0 mls/hr .[id number] PRN Infusion Additional IVPB Infusion Sodium Chloride 250 mls @ 15 mls/hr 03/21/24 20:54 IV .[id number] PRN Saline Flush Lactated Ringer's 1,000 mls @ 15 mls/hr 03/23/24 15:15 03/23/24 15:10 IV 15 mls/hr .Q48H CRISTY Administration Melatonin 3 mg 03/21/24 20:23 Melatonin 3 Mg Tablet PO QHS PRN PRN INSOMNIA Ondansetron HCl 4 mg 03/21/24 20:23 Ondansetron 4 Mg/2 Ml Vial IV Q8H PRN PRN NAUSEA/VOMITING Oxycodone HCl 5 mg 03/21/24 20:23 03/22/24 21:16 Oxycodone 5 Mg Tablet PO 5 mg Q4H PRN PRN Administration Pain Score 4-10 Sodium Chloride 10 - 40 ml 03/21/24 20:06 03/22/24 17:51 0.9% Saline Lock 10 Ml Syringe IV 10 ml UD PRN Administration SALINE FLUSH Sodium Chloride 10 - 40 ml 03/21/24 20:54 0.9% Saline Lock 10 Ml Syringe IV UD PRN SALINE FLUSH PFSH Medical History (Updated 03/23/24 @ 15:[address] Stanislav Mosqueda MD) Trigger middle finger of left hand Hx of gastric ulcer Hypertension Home Medications ?Medication ?Instructions ?Recorded ?Last Taken ?Type doxazosin 1 mg tablet 1 mg PO BID bp 03/21/24 03/21/24 08:00 History famotidine 40 mg tablet 40 mg PO DAILY acid reflux 03/21/24 03/23/24 08:00 History finasteride 5 mg tablet 5 mg PO DAILY prostate 03/21/24 03/23/24 11:30 History hydrochlorothiazide 12.5 mg tablet 12.5 mg PO .every other day bp 03/21/24 03/20/24 08:00 History lisinopril 10 mg tablet 10 mg PO DAILY bp 03/21/24 03/21/24 08:00 History magnesium oxide 400 mg (241.3 mg 400 mg PO BID supplement 03/21/24 03/20/24 17:00 History magnesium) tablet oxycodone-acetaminophen 5 mg-325 1 tab PO .hs pain 03/21/24 03/20/24 22:00 History mg tablet rosuvastatin 10 mg tablet 10 mg PO QHS cholesterol 03/21/24 03/20/24 21:00 History Allergy/AdvReac Type Severity Reaction Status Date / Time No Known Allergies Allergy Verified 03/21/24 12:35 Surgical History (Updated 03/23/24 @ 15:[address] Stanislav Mosqueda MD) S/P trigger finger release S/P carpal tunnel release History of tonsillectomy History of appendectomy Social History Smoking Status: Former smoker Review of Systems (Anesthesia) ROS Narrative System reviewed and no additional complaints, except as documented.
--- NOTE | 2024-03-23 16:35 | RAD_ITS ---
Exam: FL ERCP Biliary and Pancreatic Ductal Systems Comparison: MRCP March 22, 2024. Showing presumed tiny cystic duct stone of 3 mm on coronal T2 images, slight pericholecystic fluid, moderately distended gallbladder of 4.2 cm acute pancreatitis with ill-defined margins of the pancreas and peripancreatic edema. No visible filling defect on review of the MRCP. No dilated pancreatic duct. . History: ABD PAIN VIEWS: 12 fluoroscopic static images are provided. FINDINGS: Injection of common duct, common duct estimated to be mildly dilated. Apparent narrowing of short segment near the ampulla. Balloon sweep was performed. No dilated pancreatic duct. Electronically Signed: Gela Davila MD at 2:21 EDT , RAD/ERCP Biliary/Pancreas IMPRESSION: undefined
--- NOTE | 2024-03-23 17:09 | OP.CCLET_ITS ---
03/23/2024 Azael Marrero [address] [place] [address] Re : ERCP procedure for Enriquetarebecca Renkey Dear Dr. Marrero This procedure was performed on Saturday, March 23, 2024. My impressions and recommendations are as follows: Impressions : - The entire main bile duct was dilated, with a stone causing an obstruction. - Choledocholithiasis was found. Complete removal was accomplished by biliary sphincterotomy and balloon extraction. - A pancreatic sphincterotomy was performed. - The ventral pancreatic duct was swept and sludge was found. - A biliary sphincterotomy was performed. - The biliary tree was swept. - One temporary stent was placed into the common bile duct. Recommendations : My findings are described in the full procedure note, which is enclosed. If I can be of further assistance, please feel free to contact me at . Sincerely, Alvin Rivera, 03/23/2024 5:08:44 PM This report has been signed electronically.
--- NOTE | 2024-03-23 17:09 | OP.ERCP_ITS ---
Patient Name: Enriqueta Rivera Procedure Date: 03/23/2024 4:12 PM Date of : 1945 Age: 78 Procedure: ERCP Indications: Evaluation and possible treatment of bile duct stone(s), Elevated liver enzymes, Acute pancreatitis Providers: Alvin Rivera DO Medicines: Monitored Anesthesia Care Patient Profile: This is a 78 year old male. Refer to note in patient chart for documentation of history and physical. Patient has symptoms. This patient has no history of previous ERCP. This patient has no history of surgical alteration of the upper digestive tract anatomy. Complications: No immediate complications. Procedure: Pre-Anesthesia Assessment: - Prior to the procedure, a History and Physical was performed, and patient medications and allergies were reviewed. The patient is competent. The risks and benefits of the procedure and the sedation options and risks were discussed with the patient. All questions were answered and informed consent was obtained. Patient identification and proposed procedure were verified by the physician in the pre-procedure area. Mental Status Examination: alert and oriented. Airway Examination: normal oropharyngeal airway and neck mobility. Respiratory Examination: clear to auscultation. CV Examination: normal. Prophylactic Antibiotics: The patient does not require prophylactic antibiotics. Prior Anticoagulants: The patient has taken no anticoagulant or antiplatelet agents. ASA Grade Assessment: II - A patient with mild systemic disease. After reviewing the risks and benefits, the patient was deemed in satisfactory condition to undergo the procedure. The anesthesia plan was to use general anesthesia. Immediately prior to administration of medications, the patient was re-assessed for adequacy to receive sedatives. The heart rate, respiratory rate, oxygen saturations, blood pressure, adequacy of pulmonary ventilation, and response to care were monitored throughout the procedure. The physical status of the patient was re-assessed after the procedure. After obtaining informed consent, the scope was passed under direct vision. Throughout the procedure, the patient's blood pressure, pulse, and oxygen saturations were monitored continuously. The Duodenoscope was introduced through the mouth, and advanced to the duodenum and used to inject contrast into the bile duct and ventral pancreatic duct. The ERCP was accomplished without difficulty. The patient tolerated the procedure well. Scope In: 4:41:18 PM Scope Out: 4:58:34 PM Total Procedure Duration Time 0 hours 17 minutes 16 seconds Findings: The licensed guide film was normal. The esophagus was successfully intubated under direct vision. The scope was advanced to a normal major papilla in the descending duodenum without detailed examination of the pharynx, larynx and associated structures, and upper GI tract. The upper GI tract was grossly normal. A long 0.025 inch Jagwire was passed into the ventral pancreatic duct. The ventral pancreatic duct was then deeply cannulated with the short-nosed traction sphincterotome. Contrast was injected. I personally interpreted the pancreatic duct images. There was brisk flow of contrast through the ducts. Image quality was suboptimal. Contrast extended to the pancreatic duct. Opacification of the entire pancreatic ductal system was successful. The maximum diameter of the ducts was 2 mm. The entire opacified area was normal. A 5 mm ventral pancreatic sphincterotomy was made with a traction (standard) sphincterotome using ERBE electrocautery. There was no post-sphincterotomy bleeding. To find object(s) the ventral pancreatic duct was swept with a 6 mm balloon starting at the pancreatic duct in the body of the pancreas. Sludge was swept from the duct. A long 0.025 inch Jagwire was passed into the biliary tree. The short-nosed traction sphincterotome was passed over the guidewire and the bile duct was then deeply cannulated. Contrast was injected. Opacification of the entire biliary tree except for the cystic duct and gallbladder and entire opacified area was successful. The maximum diameter of the ducts was 10 mm. The middle third of the main bile duct contained one stone, which was 6 mm in diameter. The main bile duct was diffusely dilated, with a stone causing an obstruction. The largest diameter was 10 mm. A 5 mm biliary sphincterotomy was made with a traction (standard) sphincterotome using ERBE electrocautery. There was no post-sphincterotomy bleeding. The biliary tree was swept with a 12 mm balloon starting at the bifurcation. Sludge was swept from the duct. All stones were removed. One 10 Fr by 5 cm temporary stent with a single external flap and two internal flaps was placed 5 cm into the common bile duct. Bile flowed through the stent. The stent was in good position. Impression: - The entire main bile duct was dilated, with a stone causing an obstruction. - Choledocholithiasis was found. Complete removal was accomplished by biliary sphincterotomy and balloon extraction. - A pancreatic sphincterotomy was performed. - The ventral pancreatic duct was swept and sludge was found. - A biliary sphincterotomy was performed. - The biliary tree was swept. - One temporary stent was placed into the common bile duct. Procedure Code(s): --- Professional --- 54224, Endoscopic retrograde cholangiopancreatography (ERCP); with placement of endoscopic stent into biliary or pancreatic duct, including pre- and post-dilation and guide wire passage, when performed, including sphincterotomy, when performed, each stent [id number], 51, Endoscopic retrograde cholangiopancreatography (ERCP); with removal of calculi/debris from biliary/pancreatic duct(s) 82955, 59, Endoscopic retrograde cholangiopancreatography (ERCP); with sphincterotomy/papillotomy 65909, 26, Endoscopic catheterization of the pancreatic ductal system, radiological supervision and interpretation CPT copyright 2021 [employer]. All rights reserved. The codes documented in this report are preliminary and upon data analyst etl developer review may be revised to meet current compliance requirements. Alvin Rivera DO 03/23/2024 5:08:44 PM This report has been signed electronically. Number of Addenda: 0 Note Initiated On: 03/23/2024 4:12 PM
--- NOTE | 2024-03-23 17:11 | PCM.POST.ANE ---
Anesthesia: Postop Eval I Current Vital Signs Temperature: 98.7 F Pulse Rate: 84 Blood Pressure: 156/91 Respiratory Rate: 14 Pulse Ox: 93 Oxygen Delivery Method: Room Air Assessment Airway patent: Yes Spontaneous unlabored respirations: Yes Mental status: Awake and Calm nausea: No Vomiting: No Anesthesia Complication: No Fluid Hydration Crystalloid volume administer (ml): 500 Total IV fluid infused: 500 Progress Note Anesthesia document: Postop Eval 1 completed: Yes
--- NOTE | 2024-03-23 17:17 | POSTOPAN2_ITS ---
Anesthesia Postop Eval I Sum Postop Eval Completion status Anesthesia document: Postop Eval 1 completed: Yes Anesthesia Postop Eval I Summary Anesthesia Postop Eval I Summary: Anesthesia Postop Eval I: Assessment Summary Airway patent Yes 03/23/24 17:12 BIOFUELS RESEARCH SCIENTIST.[email or web address] Spontaneous unlabored Yes 03/23/24 17:12 BIOFUELS RESEARCH SCIENTIST.NILES respirations Mental status Awake,Calm 03/23/24 17:12 BIOFUELS RESEARCH SCIENTIST.ANNALOU nausea No 03/23/24 17:12 BIOFUELS RESEARCH SCIENTIST.ANNALOU Vomiting No 03/23/24 17:12 BIOFUELS RESEARCH SCIENTIST.ANNALOU Anesthesia Postop Eval I: Fluid Summary Crystalloid volume administer 500 03/23/24 17:12 BIOFUELS RESEARCH SCIENTIST.JBLOU (ml) Colloids volume administered ( ml) Blood Product volume administered (ml) Total IV fluid infused 500 03/23/24 17:12 BIOFUELS RESEARCH SCIENTIST.ANNALOU Anesthesia Postop Eval I: Summary Notes Anesthesia Complication No 03/23/24 17:12 BIOFUELS RESEARCH SCIENTIST.NILES Anesthesia Complication Comment: Post-operative progress note Anesthesia: Postop Eval II Evaluation Mental status: Awake Pain Level: 0 nausea: No Vomiting: No Complications Anesthesia Complication: No
--- NOTE | 2024-03-23 17:17 | PCM.POSTANE2 ---
Anesthesia Postop Eval I Sum Postop Eval Completion status Anesthesia document: Postop Eval 1 completed: Yes Anesthesia Postop Eval I Summary Anesthesia Postop Eval I Summary: Anesthesia Postop Eval I: Assessment Summary Airway patent Yes 03/23/24 17:12 DRILL RIG OPERATOR [email or web address].[email or web address] Spontaneous unlabored Yes 03/23/24 17:12 DRILL RIG OPERATOR HELPER.NILES respirations Mental status Awake,Calm 03/23/24 17:12 DRILL RIG OPERATOR HELPER.ANNALOU nausea No 03/23/24 17:12 DRILL RIG OPERATOR HELPER.ANNALOU Vomiting No 03/23/24 17:12 DRILL RIG OPERATOR HELPER.ANNALOU Anesthesia Postop Eval I: Fluid Summary Crystalloid volume administer 500 03/23/24 17:12 DRILL RIG OPERATOR HELPER.[email or web address] (ml) Colloids volume administered ( ml) Blood Product volume administered (ml) Total IV fluid infused 500 03/23/24 17:12 DRILL RIG OPERATOR HELPER.ANNALOU Anesthesia Postop Eval I: Summary Notes Anesthesia Complication No 03/23/24 17:12 DRILL RIG OPERATOR HELPER.NILES Anesthesia Complication Comment: Post-operative progress note Anesthesia: Postop Eval II Evaluation Mental status: Awake Pain Level: 0 nausea: No Vomiting: No Complications Anesthesia Complication: No
[2024-03-23] MEDS: Acetaminophen 325 MG Tablet 650 MG PO (18:29)
[2024-03-23] MEDS: oxyCODONE 5 MG Tablet PO (18:30)
[2024-03-23] MEDS: Atorvastatin Calcium 20 MG Tablet PO (20:26)
[2024-03-23] MEDS: MELATONIN 3 MG TABLET PO (22:25)
[2024-03-23] MEDS: 0.9% Saline Lock 10 ML Syringe IV (22:26)
[2024-03-23] MEDS: HYDROmorphone 0.5 MG/0.5 ML SYRINGE IV (22:28)
[2024-03-24 02:44] VITALS: BP 93/61; PULSE 62; RESP 16; TEMP 36.8; O2SAT 96
[2024-03-24 06:30] VITALS: BP 112/85; PULSE 60; RESP 16; TEMP 36.8; O2SAT 94
[2024-03-24] MEDS: Acetaminophen 325 MG Tablet 650 MG PO (06:35)
[2024-03-24] MEDS: Finasteride 5 MG Tablet PO (07:58)
[2024-03-24] MEDS: Famotidine 20 MG Tablet 40 MG PO (07:58)
[2024-03-24] MEDS: Enoxaparin 40 MG/0.4 ML Syringe SC (07:58)
[2024-03-24 08:06] LABS: Absolute Lymphocyte Count 1.28 X10^3/uL (0.83-4.51); Absolute Neutrophil Count 3.4 X10^3/uL (2.0-7.7); Basophil# 0.02 X10^3/uL; Basophil% 0.4 % (0-1); Eosinophil# 0.31 X10^3/uL; Eosinophils% 5.4 % (0-5); Hematocrit 34.9 % (40-54); Hemoglobin 11.8 g/dL (13.0-16.5); Lymphocyte # 1.28 X10^3/ul (0.83-4.51); Lymphocyte % 22.5 % (19-41); Mean Corp Hgb Conc 33.8 g/dL (32-36); Mean Corpuscular Hgb 30.1 pg (27.0-32.0); Monocyte# 0.66 X10^3/uL; Monocyte% 11.6 % (0-10); NRBC Flagged by Analyzer 0 % (0-5); Neutrophil # 3.41 X10^3/uL (2.7-7.7); Neutrophil % 59.7 % (47-70); Platelet Count 145 K/mm3 (150-450); RBC Distribution Width CV 12.5 % (11.6-14.6); RBC Distribution Width SD 40.9 fl (35.1-43.9); Red Blood Count 3.92 M/mm3 (4.6-6.2); White Blood Count 5.7 K/mm3 (4.4-11.0)
--- NOTE | 2024-03-24 08:14 | PCM.PN.SRG ---
Subjective Subjective Patient is evaluated resting comfortably in bed. He denies any right upper quadrant pain at this time. He denies nausea, vomiting. He is s/p ERCP by Dr. Rivera, which found that the patient had a retained stone within the common bile duct. Stone was removed and stent was placed. Patient notes minimal amount of epigastric discomfort. Objective Data Objective Data Vital Signs: Vital Signs Temp Pulse Resp BP Pulse Ox O2 Del Method 98.3 F 60 16 112/85 H 94 Room Air 03/24/24 06:30 03/24/24 06:30 03/24/24 06:30 03/24/24 06:30 03/24/24 06:30 03/24/24 06:30 Oxygen Delivery Method Room Air Weight: 168 lb 8 oz Body Mass Index (BMI) 28.9 Intake & Output: Intake and Output for Last 24 Hours 03/22/24 03/23/24 03/24/24 23:59 23:59 23:59 Intake Total 1192.71 / 1192.71 600 / 900 853.5 / 853.5 Balance 1192.71 / 1192.71 600 / 900 853.5 / 853.5 Lab / Micro Data 03/24/24 07:53 03/24/24 07:53 Labs: Laboratory Results - last 24 hr 03/24/24 07:53: WBC 5.7, RBC 3.92 L, Hgb 11.8 L, Hct 34.9 L, MCV 89.0, MCH 30.1, MCHC 33.8, RDW Std Deviation 40.9, RDW Coeff of Janny 12.5, Plt Count 145 L, MPV 10.0, Immature Gran % (Auto) 0.400, Neut % (Auto) 59.7, Lymph % (Auto) 22.5, [place] % (Auto) 11.6 H, Eos % (Auto) 5.4 H, Baso % (Auto) 0.4, Absolute Neuts (auto) 3.4, Absolute Lymphs (auto) 1.28, Nucleated RBC % 0 Radiography Diagnostic Testing: Radiology Impression Endo Retro Cholangiopancreatogram 03/23/24 16:35 IMPRESSION: undefined Rhythm Strip Rhythm Strip: Sinus Rhythm Rate: 57 Ectopy: None Physical Exam GI GI Narrative: Abdomen- soft, minimal tenderness in the epigastric region with palpation. No right upper quadrant discomfort. Assessment & Plan Assessment/Plan (1) Cholecystitis: (2) Acute pancreatitis: QUALIFIERS: Pancreatitis type: unspecified pancreatitis type Acute pancreatitis complication: unspecified Qualified Code(s): K85.90 - Acute pancreatitis without necrosis or infection, unspecified PLAN: Plan I am following this patient in conjunction with Dr. Urrutia. He has independently evaluated this patient. No surgical intervention planned at this time Plan to have patient follow-up as an outpatient in 1-2 weeks to discuss elective cholecystectomy Patient is ready for discharge from a surgical standpoint Charges/Coding Visit Charges Inpatient E&M: 68742 Subs Hosp L1
[2024-03-24 08:25] LABS: ALB/GLOB Ratio 0.8 RATIO (0.9-2.4); AST(SGOT) 28 U/L (15-37); Alanine Aminotransfer ALT/SGPT 44 U/L (16-61); Albumin, Serum 2.8 g/dL (3.2-5.0); Alkaline Phosphatase 52 U/L (45-117); Anion Gap 7 (5-15); BUN 13 mg/dL (7-18); BUN/Creat Ratio 13.4 RATIO (10-20); Calcium,Total 8.3 mg/dL (8.5-10.1); Chloride 104 mmol/L (98-107); Creatinine, Serum 0.97 mg/dL (0.70-1.30); EST Glomerular Filtration Rate 79 mL/min (>60); Est Glom Filt Rate - Afr Amer 96 mL/min (>60); Estimated Creatinine Clearance 59.62 ml/min; Globulin 3.3 g/dL (2.2-4.2); Glucose 101 mg/dL (74-106); Potassium 3.7 mmol/L (3.5-5.1); Protein, Total 6.1 g/dL (6.4-8.2); Sodium Level 135 mmol/L (136-145)
[2024-03-24 10:00] VITALS: BP 139/75; PULSE 56; RESP 18; TEMP 36.7; O2SAT 96
--- NOTE | 2024-03-24 10:11 | CASEMGMT ---
Social Work Pt confirms he has completed a living will and health care POA naming Christal, .? Pt notified that documents are not on file at [facility] and SW requested they be brought in for scanning into the EMR.? PEYMAN Foster
--- NOTE | 2024-03-24 12:57 | DS.PCM_ITS ---
Providers Date of Admission: 03/21/24 Date of Discharge: 03/24/24 Primary Care Physician: Dr. Azael Marrero MD Consultations 03/21/24 20:23 Consult: Gastroenterology Routine Consulting Provider: Alvin Rivera Reason for Consult: suspected gallstone pancreatitis EMERGENT Consult: No Notified: Yes Date Notified: 03/22/24 Time Notified: 07:51 Method of Notification: Text Consult: General Surgery Routine Consulting Provider: Michael Urrutia Reason for Consult: suspected gallstone pancreatitis EMERGENT Consult: No Notified: Yes Date Notified: 03/22/24 Time Notified: 07:59 Method of Notification: Text Reason For Visit: SUSPECTED GALLSTONE PANCREATITIS W CHOLECYSTITIS Diagnosis Discharge Diagnosis (1) Cholecystitis: Status: Acute Code(s): K81.9 - Cholecystitis, unspecified (2) Acute pancreatitis: Status: Acute Code(s): K85.90 - Acute pancreatitis without necrosis or infection, unspecified Qualifiers: Acute pancreatitis complication: unspecified Pancreatitis type: u nspecified pancreatitis type Qualified Code(s): K85.90 - Acute pancreatitis without necrosis or infection, unspecified Medications at Discharge Home Medications doxazosin 1 mg tablet 1 mg PO BID bp 03/21/24 famotidine 40 mg tablet 40 mg PO DAILY acid reflux 03/21/24 finasteride 5 mg tablet 5 mg PO DAILY prostate 03/21/24 hydrochlorothiazide 12.5 mg tablet 12.5 mg PO .every other day bp 03/21/24 lisinopril 10 mg tablet 10 mg PO DAILY bp 03/21/24 magnesium oxide 400 mg (241.3 mg magnesium) tablet 400 mg PO BID supplement 03/21/24 oxycodone-acetaminophen 5 mg-325 mg tablet 1 tab PO .hs pain 03/21/24 rosuvastatin 10 mg tablet 10 mg PO QHS cholesterol 03/21/24 Hospital Course Operations ERCP Procedures EKG and - (Gallbladder ultrasound, CT abdomen pelvis, MRCP) Summary of Care Provided Minutes Spent on Discharge: 35 Hospital Course: Patient is a 78-year-old male who presented [facility] ED on 03/21/2024 with acute onset epigastric/upper abdominal pain. Hospital course as noted below. Patient discharged home with no therapy needs in stable condition on 03/24. 1. Gallstone pancreatitis ? GI and general surgery followed. Lipase 1910, total bili 1.10, direct bili 0.42 on admit. Gallbladder ultrasound was unremarkable but CT abdomen pelvis with IV contrast showed pericholecystic fluid and gallbladder wall enhancement concerning for acute cholecystitis. MRCP completed on 03/22, was unremarkable. ERCP on 03/23 showed dilation of the entire main bile duct with a stone causing an obstruction; had stone removal with biliary sphincterotomy, pancreatic sphincterotomy and a temporary stent placed into common bile duct. Per surgery, lower concern for recurrence so no need for surgical intervention at this time. Given low concern for cholecystitis, IV Zosyn discontinued on 03/22. Tolerated diet well post ERCP, stable for discharge home on 03/24. Outpatient follow-up with GI in the next few weeks. 2. Mild anemia and thrombocytopenia, stable ? Hemoglobin 12.7, platelets 132 on hospital day 2. Remaining stable. Only slightly below baseline, suspect in part due to pancreatitis as noted above. Monitor. Chronic medical conditions: ? Obesity: BMI over 30 on admit. Complicated hospital course, care and prognosis. ? Hypertension: Hold home lisinopril and hydrochlorothiazide during hospitalization, okay to resume on discharge. ? Chronic back pain: Treating pain while inpatient as noted above. ? Hyperlipidemia: Continue home statin. ? GERD: Continue home famotidine. ? BPH with obstructive symptoms: Continue home finasteride. Total clinical time spent by myself addressing the patient's medical issues, reviewing all the data, and collaborating with patient's care team: 35 minutes. Physical Exam Const alert, oriented x3 and no apparent distress Constitutional Narrative: Pleasant elderly male, obese, sitting up comfortably in bed, conversing normally, in no acute distress. Stable. General Appearance: cooperative and comfortable HEENT normocephalic, head/scalp atraumatic, hearing grossly normal bilaterally, nasal mucous membranes and turbinates normal and moist oral mucous membranes Eyes PERRL, EOMs intact bilaterally and conjunctivae normal Neck full ROM Chest inspection of chest normal Resp normal respiratory effort, normal air movement, no use of accessory muscles and clear to auscultation bilaterally Cardio regular rate, regular rhythm, no murmurs and peripheral pulses 2+ throughout GI GI Narrative: Mild tenderness to palpation in epigastric to right upper quadrant areas. Abdomen otherwise soft and nondistended with normal bowel sounds. Stable. Back/Spine normal ROM Extremity normal to inspection, full ROM and no pedal edema Skin no rashes or lesions noted Neuro moves all extremities and no focal motor deficits Speech: speech normal Psych mental status grossly normal Weight / BMI Weight Weight: 76.43 kg Body Mass Index (BMI) 28.9 ABG / Lab / Microbiology Data 03/24/24 07:53 03/24/24 07:53 Laboratory: Laboratory Results - last 24 hr 03/24/24 07:53: WBC 5.7, RBC 3.92 L, Hgb 11.8 L, Hct 34.9 L, MCV 89.0, MCH 30.1, MCHC 33.8, RDW Std Deviation 40.9, RDW Coeff of Janny 12.5, Plt Count 145 L, MPV 10.0, Immature Gran % (Auto) 0.400, Neut % (Auto) 59.7, Lymph % (Auto) 22.5, M daljit % (Auto) 11.6 H, Eos % (Auto) 5.4 H, Baso % (Auto) 0.4, Absolute Neuts (auto) 3.4, Absolute Lymphs (auto) 1.28, Nucleated RBC % 0, Sodium 135 L, Potassium 3.7, Chloride 104, Carbon Dioxide 24.0, Anion Gap 7, BUN 13, Creatinine 0.97, Estim Creat Clear Calc 59.62, Est GFR (MDRD) Af Amer 96, Est GFR (MDRD) Non-Af 79, BUN/Creatinine Ratio 13.4, Glucose 101, Calcium 8.3 L, Total Bilirubin 0.70, AST 28, ALT 44, Alkaline Phosphatase 52, Total Protein 6.1 L, Albumin 2.8 L, Globulin 3.3, Albumin/Globulin Ratio 0.8 L Radiography Diagnostic Testing: Radiology Impression Endo Retro Cholangiopancreatogram 03/23/24 16:35 IMPRESSION: undefined Meaningful Use Info Meaningful Use Meaningful Use Diagnoses (Choose all that apply): None applicable Ischemic Stroke Statin Dosing Therapy Reference: STATIN DOSE THERAPY REFERENCE: * Patients > 75 years receive moderate or high dose statin therapy. * Patients 75 years or YOUNGER should receive HIGH intensity statin dose unless contraindicated. You will be required to document reason for non-treatment if statin daily dose does not meet guidelines. HIGH DOSE STATIN THERAPY DAILY Atorvastatin > than or = to 40 mg Rosuvastatin > than or = to 20 mg Amlodipine + Atorvastatin > than or = to 2.5/40 mg Ezetimibe + Simvastatin 10/80 mg Simvastatin 80mg Discharge Plan Admission Admit Date/Time: 03/21/24 19:13 Primary Reason for Your Visit: abdominal pain Attending Provider: Marco Still Primary Care Provider: Azael Marrero Consulting Providers: Alvin Rivera; Michael Urrutia Instructions Additional Instructions / Restrictions: Continue all home medications as normal. Follow up with Dr. Rivera as needed. Discharge Orders/Prescriptions Prescriptions: Continued doxazosin 1 mg tablet 1 mg PO BID famotidine 40 mg tablet 40 mg PO DAILY oxycodone-acetaminophen 5-325 mg tablet 1 tab PO .hs magnesium oxide 400 mg (241.3 mg magnesium) tablet 400 mg PO BID lisinopril 10 mg tablet 10 mg PO DAILY finasteride 5 mg tablet 5 mg PO DAILY rosuvastatin 10 mg tablet 10 mg PO QHS hydrochlorothiazide 12.5 mg tablet 12.5 mg PO .every other day Referrals / Follow Up: Azael Marrero MD [Primary Care Provider] - Michael Urrutia MD [Med Staff - Active Staff] - 04/05/24 (Establish patient to discuss elective cholecystectomy) Disposition Disposition (needs filled in before D/C Order can be placed): Home, Self Care Charges/Coding Visit Charges Inpatient E&M: 16628 Disch Hosp >30min
[2024-03-24 13:19] VITALS: BP 158/86; PULSE 65; RESP 18; TEMP 37.1; O2SAT 95
--- NOTE | 2024-03-24 14:10 | CASEMGMT ---
DARLINE MARK NOTE: Pt being discharged home. RN CM to room. Pt resting in bed. @ bedside. Pt denies having any discharge needs/concerns. Malcolm BARKERN DARLINE MARK
--- NOTE | 2024-03-24 14:34 | PHA.DC.MR.R ---
Pharmacy [place] Med Reconciliation Pharmacy Service has performed discharge medication reconciliation for this patient. The patient's discharge medication list was reviewed for discrepancies and discrepancies were resolved. Medications at Discharge Home Medications doxazosin 1 mg tablet 1 mg PO BID bp 03/21/24 famotidine 40 mg tablet 40 mg PO DAILY acid reflux 03/21/24 finasteride 5 mg tablet 5 mg PO DAILY prostate 03/21/24 hydrochlorothiazide 12.5 mg tablet 12.5 mg PO .every other day bp 03/21/24 lisinopril 10 mg tablet 10 mg PO DAILY bp 03/21/24 magnesium oxide 400 mg (241.3 mg magnesium) tablet 400 mg PO BID supplement 03/21/24 oxycodone-acetaminophen 5 mg-325 mg tablet 1 tab PO .hs pain 03/21/24 rosuvastatin 10 mg tablet 10 mg PO QHS cholesterol 03/21/24
== END 2024-03-24 14:45 | disposition home or self-care (01) | DRG 444 ==
LOC: ED 14:48 → MS3 17:48
PROVIDERS: Internal Medicine Gastroenterology; Physician Assistant; Admitting Provider Hospitalist; Emergency Provider Emergency Medicine; PCP Family Medicine; Visit Provider Hospitalist
PROC: (CPT 43260; principal; 2024-03-23 14:55)
DX: K80.51 Calculus of bile duct without cholangitis or cholecystitis with obstruction (principal); K85.10 Biliary acute pancreatitis without necrosis or infection; N13.8 Other obstructive and reflux uropathy; D69.6 Thrombocytopenia, unspecified; I10 Essential (primary) hypertension; D64.9 Anemia, unspecified; K21.9 Gastro-esophageal reflux disease without esophagitis; E78.00 Pure hypercholesterolemia, unspecified; M54.9 Dorsalgia, unspecified; R35.0 Frequency of micturition; N40.1 Benign prostatic hyperplasia with lower urinary tract symptoms; G89.29 Other chronic pain; Z79.899 Other long term (current) drug therapy; Z87.891 Personal history of nicotine dependence
CPT/HCPCS: 36415; 74177; 74181; 74330; 76000; 76705; 80048; 80053; 80061; 80076; 81001; 83690; 84484; 85025; 85027; 93005; 94668; 99285; J7050; J7120; Q9967; A4216; J2405

== ENCOUNTER → 2024-04-13 | Outpatient (CLI) | payer MEDICARE, OTHER, SELFPAY ==
[2024-04-13 15:28] LABS: Absolute Lymphocyte Count 1.83 X10^3/uL (0.83-4.51); Basophil# 0.01 X10^3/uL; Basophil% 0.2 % (0-1); Eosinophil# 0.16 X10^3/uL; Eosinophils% 3.5 % (0-5); Hematocrit 40.2 % (40-54); Hemoglobin 13.3 g/dL (13.0-16.5); Lymphocyte # 1.83 X10^3/ul (0.83-4.51); Lymphocyte % 40.2 % (19-41); Mean Corp Hgb Conc 33.1 g/dL (32-36); Mean Corpuscular Hgb 29.9 pg (27.0-32.0); Mean Corpuscular Volume 90.3 fL (80-94); Mean Platelet Vol. 10.4 fl (6.2-12.0); NRBC Flagged by Analyzer 0 % (0-5); Neutrophil # 2.04 X10^3/uL (2.7-7.7); Neutrophil % 44.9 % (47-70); Platelet Count 172 K/mm3 (150-450); RBC Distribution Width CV 12.4 % (11.6-14.6); RBC Distribution Width SD 41.1 fl (35.1-43.9); Red Blood Count 4.45 M/mm3 (4.6-6.2); White Blood Count 4.6 K/mm3 (4.4-11.0)
[2024-04-13 16:09] LABS: ALB/GLOB Ratio 1.1 RATIO (0.9-2.4); AST(SGOT) 22 U/L (15-37); Alanine Aminotransfer ALT/SGPT 19 U/L (16-61); Albumin, Serum 3.5 g/dL (3.2-5.0); Alkaline Phosphatase 56 U/L (45-117); Anion Gap 7 (5-15); BUN 15 mg/dL (7-18); BUN/Creat Ratio 15.4 RATIO (10-20); Chloride 104 mmol/L (98-107); Creatinine, Serum 0.97 mg/dL (0.70-1.30); EST Glomerular Filtration Rate 79 mL/min (>60); Est Glom Filt Rate - Afr Amer 96 mL/min (>60); Globulin 3.3 g/dL (2.2-4.2); Glucose 131 mg/dL (74-106); Lipase 57 U/L (13-75); Potassium 3.8 mmol/L (3.5-5.1); Protein, Total 6.8 g/dL (6.4-8.2); Sodium Level 136 mmol/L (136-145)
== END | disposition home or self-care (01) ==
LOC: MTLAB 11:11
PROVIDERS: PCP Family Medicine; Referring Provider Family Medicine; Visit Provider Family Medicine
DX: K85.90 Acute pancreatitis without necrosis or infection, unspecified (principal)
CPT/HCPCS: 36415; 80053; 83690; 85025

== ENCOUNTER 2024-05-07 12:15 | Day surgery (SDC) | payer MEDICARE, OTHER, SELFPAY ==
[2024-05-07] VITALS (8 sets, daily range): BP systolic 92–118; BP diastolic 67–80; PULSE 57–64; RESP 14–16; TEMP 36.1–36.4; O2SAT 93–100; BMI 28.6
--- NOTE | 2024-05-07 07:24 | EKG12_ITS ---
Test Reason : PREOP Blood Pressure : / mmHG Vent. Rate : 054 BPM Atrial Rate : 054 BPM P-R Int : 154 ms QRS Dur : 092 ms QT Int : 450 ms P-R-T Axes : 034 040 039 degrees QTc Int : 426 ms Sinus bradycardia Otherwise normal ECG Confirmed by CASEY BARNARD, ARIADNA ([id number]), film editor supervisor ERIN RIZVI ([id number]) on 05/07/2024 8:02:42 AM Referred By: RADHA Confirmed By:ARIADNA PEÑA MD
[2024-05-07] MEDS: Lactated Ringers 1,000 ML 15 ML IV (12:39)
--- NOTE | 2024-05-07 12:40 | PCM.PRE.AN2 ---
ASA Classification* ASA Classification ASA Classification: 2 Assessment & Plan Anesthesia* Anesthesia Assessment Anesthesia Assessment: Discussed sedation and/or anesthesia options, risks, benefits, and alternatives with patient/parents/legal guardian/POA. Questions invited. The patient/parents/legal guardian/POA seems to understand and agrees to proceed with anesthesia plan. Reviewed the physical assessment, medical history, allergy history and patient home medications list prior to surgery/procedure/anesthetic and documented any changes. Performed airway and anesthesia risk assessments. Anesthesia Type Anesthesia Type: MAC Anesthesia Focused Assessment* Temperature: 97.5 F Pulse Rate: 64 Blood Pressure: 118/80 Respiratory Rate: 16 Pulse Ox: 100 Airway Assessment Mouth opens: >3 cm Mallampati Score: II Focused Labs Anesthesia Preop lab: CBC WBC 4.6 K/mm3 (4.4-11.0) 04/13/24 11:19 RBC 4.45 M/mm3 (4.6-6.2) L 04/13/24 11:19 Hgb 13.3 g/dL (13.0-16.5) 04/13/24 11:19 Hct 40.2 % (40-54) 04/13/24 11:19 Plt Count 172 K/mm3 (150-450) 04/13/24 11:19 CHEMISTRY Potassium 3.8 mmol/L (3.5-5.1) 04/13/24 11:19 Sodium 136 mmol/L (136-145) 04/13/24 11:19 Magnesium 2.3 mg/dL (1.6-2.6) 01/28/19 15:55 BUN 15 mg/dL (7-18) 04/13/24 11:19 Creatinine 0.97 mg/dL (0.70-1.30) 04/13/24 11:19 Glucose 131 mg/dL (74-106) H 04/13/24 11:19 TSH 4.76 uIU/mL (0.358-3.74) H 05/07/21 09:15 COAG Pre-Assessment Diagnosis/Proposed Procedure Planned Operative Procedure(s): ercp with stent removal Anesthesia History 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 When Was Last Pacemaker Check QUESTION #4 FULL TEXT: You/Your Family Experience fever (hyperthermia) with Anesthesia Last Oral Intake Last Oral intake: Last Oral Intake NPO since 06:30 05/07/24 12:32 Meds taken in AM with sips of Yes 05/07/24 12:32 water? Meds patient instructed to see mar 05/07/24 12:32 take am of surgery PONV PONV - aircraft systems repairer: PONV - aircraft systems repairer Female No 05/05/24 12:14 HX of Motion Sickness No 05/05/24 12:14 HX of N/V After Surgery No 05/05/24 12:14 Non-Smoker Yes 05/05/24 12:14 Duration of Surgery greater No 05/05/24 12:14 than 60 minutes Number of Risk Factors 1 05/05/24 12:14 PONV Score Low Risk 05/05/24 12:14 Height & Weight Height & Weight: Anesthesia: Height & Weight Height 5 ft 4 in 05/07/24 12:32 Weight: 75.75 kg 05/07/24 12:32 Body Mass Index (BMI) 28.6 05/07/24 12:32 Respiratory Assessment Respiratory Assessment - aircraft systems repairer: Respiratory Tract Infection Hx - aircraft systems repairer Hx Respiratory Tract Infection No 05/05/24 12:14 STOP Sleep Apnea STOP Sleep Apnea - aircraft systems repairer: STOP Sleep Apnea - aircraft systems repairer Hx Hypertension Yes: controlled with med 05/05/24 12:14 Hx Sleep Apnea No 05/05/24 12:14 CPAP BIPAP Do you snore loudly (louder No 05/05/24 12:14 than talking or can be heard Do you often feel tired/ No 05/05/24 12:14 fatigued/ sleepy during daytime? Has anyone observed you stop No 05/05/24 12:14 breathing during sleep? STOP Results Negative 05/05/24 12:14 QUESTION #5 FULL TEXT : Do you snore loudly (louder than talking or can be heard through closed doors)? 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 Specify any problems Hx of Preganancy in last 3 N/A 05/05/24 12:14 Months Nurse Filling Out Transfusion NBUCHER 05/05/24 12:14 & Questions: Date: 05/05/24 05/05/24 12:14 Time: 12:16 05/05/24 12:14 Patient unable to answer at this time (ie. confused, unrespo /Reproduction History /Reproductive History - aircraft systems repairer: /Reproductive Hx- aircraft systems repairer Hx Now Gestational Age (in weeks): EDC: Hx Hx Para Hx Section SAB No 05/05/24 12:14 Active Medications Active Medications: Current Medications Generic Name Dose Route Start Last Admin Trade Name Freq PRN Reason Stop Dose Admin Lactated Ringer's 1,000 mls @ 15 mls/hr 05/07/24 12:30 05/07/24 12:39 IV 15 mls/hr .Q48H CRISTY Administration PFSH Medical History Wears glasses Arthritis Prostate disease BPH (benign prostatic hyperplasia) High cholesterol History of gastroesophageal reflux (GERD) Former smoker Trigger middle finger of left hand Hx of gastric ulcer Hypertension Home Medications ?Medication ?Instructions ?Recorded ?Last Taken ?Type doxazosin 1 mg tablet 1 mg PO BID bp 03/21/24 05/07/24 History famotidine 40 mg tablet 40 mg PO DAILY acid reflux 03/21/24 03/23/24 08:00 History finasteride 5 mg tablet 5 mg PO DAILY prostate 03/21/24 03/23/24 11:30 History hydrochlorothiazide 12.5 mg tablet 12.5 mg PO QODAY bp 03/21/24 03/20/24 08:00 History lisinopril 10 mg tablet 10 mg PO DAILY bp 03/21/24 05/07/24 History magnesium oxide 400 mg (241.3 mg 400 mg PO DAILY supplement 03/21/24 03/20/24 17:00 History magnesium) tablet rosuvastatin 10 mg tablet 10 mg PO QHS cholesterol 03/21/24 03/20/24 21:00 History oxycodone-acetaminophen 5 mg-325 0.5 - 1 tab PO QHS 05/05/24 Unknown History mg tablet Allergy/AdvReac Type Severity Reaction Status Date / Time No Known Allergies Allergy Verified 05/07/24 12:31 Surgical History History of colonoscopy History of endoscopic retrograde cholangiopancreatography S/P trigger finger release S/P carpal tunnel release History of tonsillectomy History of appendectomy Social History Smoking Status: Former smoker Review of Systems (Anesthesia) ROS Narrative System reviewed and no additional complaints, except as documented.
--- NOTE | 2024-05-07 13:28 | PCM.HP.BLA ---
History and Physical Date of Admission: 05/07/24 78-year-old male who presents for outpatient evaluation of his gallbladder after inpatient consultation 03/21-03/24 related to a diagnosis of gallstone pancreatitis and ERCP confirmation of choledocholithiasis. He had a stent placed and he comes back in today for stent removal. He declares he has had no recurrence of the pain with which he presented to the hospital. He shares that now and then he feels gassy and bloated. ROS General General: No weight change, appetite, fatigue, colon cancer, breast cancer or weakness HEENT HEENT: No difficulty swallowing, eye injury, eye surgery, swollen glands or hoarseness Endo Endocrine: No thyroid disease, diabetes mellitus, thyroid cancer, Hair loss, heat intolerance or cold intolerance Skin Skin: No rash or changing moles Breast Breast: No left breast lump, right breast lump, nipple discharge, breast pain, abnormal mammogram, abnormal US or breast enlargement Musc Musculoskeletal: No back problems, arthritis, rheumatoid arthritis, gout or joint pain Cardio Cardiovascular: No murmur, pacemaker, heart disease, atrial fibrillation, high blood pressure, heart attack, heart stent, palpitations, shortness of breat with exertion or chest pain Psych Psychiatric: No depression, anxiety or hearing voices Resp Respiratory: No shortness of breath, No sleep apnea, No cough, No COPD, No asthma, No emphysema and No wheezing Gastro Gastrointestinal: No abdominal pain, No nausea or vomiting, No diarrhea, No constipation, No blood in stool, No acid reflux, No hemorrhoids, No ulcers, No gallbladder problem and No black,tarry stools Alexander Hematologic: No blood thinners, No blood disorders, No bleeding, No anemia and No blood clots Neuro Neurologic: No system reviewed and no additional complaints, except as documented, No as per HPI, No abnormal gait, No abnormal hearing, No abnormal movements, No abnormal speech, No behavioral changes, No burning sensations, No confusion, No convulsions, No disequilibrium, No dizziness, No localized weakness, No frequent falls, No headache(s), No lack of coordination, No loss of vision, No memory loss, No numbness, No other visual disturbances, No radicular pain, No restless legs, No sensory deficit, No syncope, No tingling, No tremor(s), No weakness and No other Exam Const General: cooperative and comfortable Orientation: alert, awake and oriented x3 Resp Effort & Inspection: normal respiratory effort GI Other: No scars, soft, nondistended, nontender to palpation x 4 quadrants (negative Forrest sign) Assessment and Plan Assessment and Plan (1) Choledocholithiasis: Status: Resolved Comment: Patient is a 78-year-old male with recent admission for gallstone pancreatitis and choledocholithiasis (as found on ERCP). Patient is doing well without any complaints. We will take his stent out today. He is currently being evaluated for cholecystectomy. He was explained alternatives, risk, benefits including not withstanding bleeding, infection, sepsis, perforation, need for emergent urgent . He will have an ASA of 3.
--- NOTE | 2024-05-07 14:05 | RAD_ITS ---
STUDY: ERCP REASON FOR EXAM: Male, 78 years old. Stent removal. FLUOROSCOPY TIME (if supplied): ( 2 minutes ) minutes/seconds. 45.49 mGy. 9 images were submitted. TECHNIQUE: Intraoperative fluoroscopic services provided for ERCP. COMPARISON: Comparison is made with prior study dated March 23, 2024. FINDINGS: Well-defined filling defect is seen in the distal portion of the common bile duct most likely representing air bubbles. RAD/ERCP Biliary/Pancreas IMPRESSION: Intraoperative imaging provided for ERCP. Electronically Signed: Wilner Shahid MD at 10:37 EDT ,
--- NOTE | 2024-05-07 14:43 | OP.CCLET_ITS ---
05/07/2024 Azael Marrero [address] [place] [address] Re : ERCP procedure for Enriqueta Rivera Dear Dr. Marrero This procedure was performed on Tuesday, May 07, 2024. My impressions and recommendations are as follows: Impressions : - The entire biliary tree was dilated, with a stone causing an obstruction. - Choledocholithiasis was found. Complete removal was accomplished by biliary sphincterotomy and balloon extraction. - A biliary sphincterotomy was performed. - The biliary tree was swept. - One stent was removed from the biliary tree. Recommendations : My findings are described in the full procedure note, which is enclosed. If I can be of further assistance, please feel free to contact me at . Sincerely, Alvin Rivera, 05/07/2024 2:43:24 PM This report has been signed electronically.
--- NOTE | 2024-05-07 14:43 | OP.ERCP_ITS ---
Patient Name: Enriqueta Rivera Procedure Date: 05/07/2024 1:54 PM Date of : 1945 Age: 78 Procedure: ERCP Indications: Bile duct stone(s), Abdominal pain of suspected biliary or pancreatic origin, Jaundice, Elevated liver enzymes Providers: Alvin Rivera DO Medicines: Monitored Anesthesia Care Patient Profile: This is a 78 year old male. Refer to note in patient chart for documentation of history and physical. Patient has symptoms of acute right upper quadrant abdominal pain. Complications: No immediate complications. Procedure: Pre-Anesthesia Assessment: - Prior to the procedure, a History and Physical was performed, and patient medications and allergies were reviewed. The patient is competent. The risks and benefits of the procedure and the sedation options and risks were discussed with the patient. All questions were answered and informed consent was obtained. Patient identification and proposed procedure were verified by the physician in the pre-procedure area. Mental Status Examination: normal. Airway Examination: normal oropharyngeal airway and neck mobility. Respiratory Examination: clear to auscultation. CV Examination: normal. Prophylactic Antibiotics: The patient does not require prophylactic antibiotics. Prior Anticoagulants: The patient has taken no anticoagulant or antiplatelet agents. ASA Grade Assessment: II - A patient with mild systemic disease. After reviewing the risks and benefits, the patient was deemed in satisfactory condition to undergo the procedure. The anesthesia plan was to use monitored anesthesia care (MAC). Immediately prior to administration of medications, the patient was re-assessed for adequacy to receive sedatives. The heart rate, respiratory rate, oxygen saturations, blood pressure, adequacy of pulmonary ventilation, and response to care were monitored throughout the procedure. The physical status of the patient was re-assessed after the procedure. After obtaining informed consent, the scope was passed under direct vision. Throughout the procedure, the patient's blood pressure, pulse, and oxygen saturations were monitored continuously. The Duodenoscope was introduced through the mouth, and advanced to the duodenum and used to inject contrast into the bile duct and ventral pancreatic duct. The ERCP was accomplished without difficulty. The patient tolerated the procedure well. Scope In: 2:21:50 PM Scope Out: 2:34:44 PM Total Procedure Duration Time 0 hours 12 minutes 54 seconds Findings: The production coordinator film was normal. The esophagus was successfully intubated under direct vision. The scope was advanced to a normal major papilla in the descending duodenum without detailed examination of the pharynx, larynx and associated structures, and upper GI tract. The upper GI tract was grossly normal. A long 0.025 inch Jagwire was passed into the biliary tree. The short-nosed traction sphincterotome was passed over the guidewire and the bile duct was then deeply cannulated. Contrast was injected. I personally interpreted the bile duct images. There was brisk flow of contrast through the ducts. Image quality was adequate. Contrast extended to the entire biliary tree. Opacification of the entire opacified area and entire biliary tree was successful. The maximum diameter of the ducts was 11 mm. The middle third of the main bile duct contained two stones, the largest of which was 6 mm in diameter. The entire biliary tree was diffusely dilated, with a stone causing an obstruction. The largest diameter was 12 mm. A 5 mm biliary sphincterotomy was made with a traction (standard) sphincterotome using ERBE electrocautery. There was no post-sphincterotomy bleeding. The biliary tree was swept with a 15 mm balloon starting at the left intrahepatic duct(s). Sludge was swept from the duct. All stones were removed. One stent was removed from the biliary tree using a snare. Impression: - The entire biliary tree was dilated, with a stone causing an obstruction. - Choledocholithiasis was found. Complete removal was accomplished by biliary sphincterotomy and balloon extraction. - A biliary sphincterotomy was performed. - The biliary tree was swept. - One stent was removed from the biliary tree. Procedure Code(s): --- Professional --- 62795, Endoscopic retrograde cholangiopancreatography (ERCP); with removal of foreign body(s) or stent(s) from biliary/pancreatic duct(s) 73217, Endoscopic retrograde cholangiopancreatography (ERCP); with removal of calculi/debris from biliary/pancreatic duct(s) 99242, Endoscopic retrograde cholangiopancreatography (ERCP); with sphincterotomy/papillotomy 35692, 26, Endoscopic catheterization of the biliary ductal system, radiological supervision and interpretation CPT copyright 2021 [employer]. All rights reserved. The codes documented in this report are preliminary and upon permastone mechanic review may be revised to meet current compliance requirements. Alvin Rivera DO 05/07/2024 2:43:24 PM This report has been signed electronically. Number of Addenda: 0 Note Initiated On: 05/07/2024 1:54 PM
--- NOTE | 2024-05-07 14:52 | PCM.POST.ANE ---
Anesthesia: Postop Eval I Current Vital Signs Temperature: 97.3 F Pulse Rate: 62 Blood Pressure: 92/67 Respiratory Rate: 14 Pulse Ox: 96 Oxygen Delivery Method: Room Air Assessment Airway patent: Yes Spontaneous unlabored respirations: Yes Mental status: Asleep nausea: No Vomiting: No Anesthesia Complication: No Fluid Hydration Crystalloid volume administer (ml): 600 Total IV fluid infused: 600 Progress Note Anesthesia document: Postop Eval 1 completed: Yes
--- NOTE | 2024-05-07 16:05 | PCM.POSTANE2 ---
Anesthesia Postop Eval I Sum Postop Eval Completion status Anesthesia document: Postop Eval 1 completed: Yes Anesthesia Postop Eval I Summary Anesthesia Postop Eval I Summary: Anesthesia Postop Eval I: Assessment Summary Airway patent Yes 05/07/24 14:53 [email or web address] Spontaneous unlabored Yes 05/07/24 14:53 [email or web address] respirations Mental status Asleep 05/07/24 14:53 [email or web address] nausea No 05/07/24 14:53 [email or web address] Vomiting No 05/07/24 14:53 [email or web address] Anesthesia Postop Eval I: Fluid Summary Crystalloid volume administer 600 05/07/24 14:53 [email or web address] (ml) Colloids volume administered ( ml) Blood Product volume administered (ml) Total IV fluid infused 600 05/07/24 14:53 [email or web address] Anesthesia Postop Eval I: Summary Notes Anesthesia Complication No 05/07/24 14:53 [email or web address] Anesthesia Complication Comment: Post-operative progress note Anesthesia: Postop Eval II Evaluation Mental status: Awake and Calm Pain Level: 0 nausea: No Vomiting: No Complications Anesthesia Complication: No
== END 2024-05-07 15:29 | disposition home or self-care (01) ==
LOC: EN 12:16 → AC 12:18
PROVIDERS: PCP Family Medicine; Referring Provider Family Medicine; Visit Provider Internal Medicine Gastroenterology
PROC: (CPT 43260; principal; 2024-05-07 13:10)
DX: K80.50 Calculus of bile duct without cholangitis or cholecystitis without obstruction (principal); R74.8 Abnormal levels of other serum enzymes
CPT/HCPCS: 43264; 43262; 43275; 74330; 76000; 93005; J7120; J2405

== ENCOUNTER 2024-05-11 11:00 | Outpatient (RCR) | payer MEDICARE, OTHER, SELFPAY ==
--- NOTE | 2024-03-31 14:17 | HP.OTEVAL_ITS ---
Patient's Visit Information Visit Information Visit Information: NELLA TOWNSEND is a 78 year old M, referred to Occupational Therapy by Dr. Disha Rubalcava MD, with a diagnosis of left cmc arthritis. Date of Evaluation: 03/31/24 Occupational Therapist: Emelia Harris, KATHYAR/Liliana, CHT Subjective Subjective: This 78 year old male was seen for OT eval with dx of left cmc arthritis, March 04 2024 pt underwent a left CMC arthroplasty, CTR and flexor tenosynovitis of left MF. pt had pain for about 3 years. After pt having therapy and speaking with his DrCoco he decided to have the sx done. Pt now arrives 3 weeks and 6 days s/p from a left CTR, CMC suspention reconstruction and right MF trigger finger release. Pain left hand: Current Pain Intensity: 3 Pain Intensity Range: 2 and 4 ROM Wrist: right 65/60 left 40/35 CMC: right 20 left 0 MP: right 35 left 10 IP: right 60 left 5 Opposition: Kapandji opposition scare right 8 left 3 ROM Comments: pt demo with left MP and IP OA deformities that have limited for last few years. Strength X Ray Equipment Mechanic: right57# left NT Lateral Pinch: right 8# left NT Tripod Pinch: right 4# left NT Strength Comments: will test left at later date Sensation Sensation Comments: pt states some tingling thumb and IF from time to time Quick DASH-Disab of Arm,Shoulder& Hand Quick DASH Score: 36.3625 Goals Goal:100% adherence to protocol: Yes Comment: Dr. Rubalcava CMC arthroplasty guidelines Goal:Daily scar massage when approriate: Yes Goal:ROM equal to unaffected hand: Yes Goal:X Ray Equipment Mechanic/Pinch strength at least 75% of unaffected hand: Yes Comment: will not initiate until week 6-8 s/p Goal:No pain with affected hand use: Yes Goal:Full use of affected hand in daily activities including work: Yes Goal:Decrease scar hypersensitivity: Yes Other Goal: pt will demo understanding of using orthosis by end of 1st visit Rehabilitation General Assessment: pt arrives 3 weeks and 6 days s/p from a left CMC arthroplasty suspensionplasty, CTR and MF trigger finger release. Due to newly healing structures pt is limited with use of left hand for ADLs and IADLs. Pt demo need for skilled OT services 2x week for 6 weeks. Today therapist reviewed Dr. Garcia CMC guidelines. pt demo understanding and agree to POC. Anticipated Interventions Anticipated Interventions: A/AAROM/PROM, Strengthening, Scar Care, Triggerpoint Release, Modalities, Orthoses, Joint Protection/Energy Conservation, Ergonomic Education, Fine Motor Coord/Kapil, Education re assistive Equipment, Education re Diagnosis, Caregiver Training and Home Program Visit Plan Frequency: 1-2x /Week Duration: 6 Weeks General Plan: Dr. Rubalcava CMC arthroplasty Week 2: exercise- AROM performed for digits and thumb IP joint only Begin short arc wrist motion - initiate scar mtg Week 4: cut WHFO thumb spica down to hand based thumb spica -Begin PROM to wrist if tight- AROM for thumb CMC- joint- cont. scar mtg/edema control (modalities as indicated for pain and edema. Week 6: comfort cool splint orthoplast splint at night and heavy activity. Exercise: start gentle strengthening(thera-putty), progress as tolerated Progress to wrist strengthening and heavier prehension tasks at 8 weeks post- operative *Avoid forceful extension of thumb * Week 8 D/C orthoplast splint by week 8 except for heavy activity PRN -progress to wrist strengthening and heavier prehension tasks *Avoid forceful extension of the thumb* Expectations: Most patients are treated with a Home Program and checked after each MD visit for program progression 2x weekly for 4-6 weeks for symptomatic patients or those returning to heavier work demands. 2 months to resume normal activities, 3 months for strenuous 3-6 months to reach optimum results slight decrease in pinch and spanish speaking babysitter strength generally, gain 70% of strength and motion of unoperated hand. TEXT: Thank you for the opportunity to evaluate your patient. For Medicare and Medicare HMO plans, please review the plan of care and approve it. It will need to be FAXED BACK to us at [phone] for Medicare purposes. Please let me know if there are questions or concerns regarding this plan of care. Physician Signature: Date:
--- NOTE | 2024-05-11 11:40 | HP.OTDCSUM ---
Discharge Summary D/C Summary: It has been my pleasure to treat NELLA TOWNSEND under orders from Dr. Disha Rubalcava MD, for the diagnosis of left cmc arthritis for a total of 12 visit(s). Please see the following information for a summary of their discharge status. Overall Improvement % Improvement: 85 Objective Objective/Function: left MF PIP ext. 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 application developer strength 40# right is 65# lateral pinch 8# increase from unable tripod pinch 6# increased from unable Goals Patient Goals: Regain Strength, Improve Fine Motor Skills, Use Hand/Wrist/Arm Normally Again and Resume Former Household Responsibilities (Cooking,Cleaning,Yard, etc.) Goal:100% adherence to protocol: Yes Goal:Daily scar massage when approriate: Yes Goal:ROM equal to unaffected hand: Yes Goal:Funeral Arrangement Director/Pinch strength at least 75% of unaffected hand: Yes Goal:No pain with affected hand use: Yes Goal:Full use of affected hand in daily activities including work: Yes Goal:Decrease scar hypersensitivity: Yes Other Goal: pt will demo understanding of using orthosis by end of 1st visit Plan Plan: D/C D/C Information Discharge Comments: pt has made great gains with his recovery from his left cmc arthroplasty . pt demo with hypertrophic scar on left MF trigger finger release- pt is using orthosis at night to decrease extensor lag- pt also working on reverse blocking to improve extensor lag. pt ed. to cont.with scar mtg due to hypertrophic scar. pt has met OT goals and at this time demo understanding of limiting strong resistive pinch for next 2 months. pt demo understanding. pt agrees to D/C. d/c sentence: If there are questions or concerns regarding this patient's occupational therapy, please fell free to call me at [phone]. Thank you for the referral of this patient. Sincerely, Emelia Harris, OTR/L, CHT
== END 2024-05-11 19:00 | disposition home or self-care (01) ==
LOC: OT 11:00
PROVIDERS: PCP Family Medicine; Visit Provider Orthopaedic Surgery Hand Surgery
DX: M18.0 Bilateral primary osteoarthritis of first carpometacarpal joints (principal); G56.02 Carpal tunnel syndrome, left upper limb; M65.9 Synovitis and tenosynovitis, unspecified
CPT/HCPCS: 97035; 97110; 97140; 97166; 97530

== ENCOUNTER → 2024-10-04 | Outpatient (CLI) | payer MEDICARE, OTHER, SELFPAY ==
[2024-10-04 17:42] LABS: Amphetamine Urine NEGATIVE (<1000 ng/mL); Barbiturate Urine NEGATIVE (< 200 ng/mL); Benzodiazepine Urine NEGATIVE (< 200 ng/mL); Cocaine Urine NEGATIVE (< 300 ng/mL); Ecstacy Urine NEGATIVE (< 500 ng/mL); Methadone Urine NEGATIVE (< 300 ng/mL); Opiates Urine NEGATIVE (< 300 ng/mL); PCP Urine NEGATIVE (< 25 ng/mL); THC Urine NEGATIVE (< 50 ng/mL); Vista UDS pH Range 6
[2024-10-04 17:45] LABS: Absolute Lymphocyte Count 2.46 X10^3/uL (0.83-4.51); Absolute Neutrophil Count 2.4 X10^3/uL (2.0-7.7); Basophil# 0.02 X10^3/uL; Basophil% 0.4 % (0-1); Eosinophil# 0.21 X10^3/uL; Eosinophils% 3.8 % (0-5); Hematocrit 40.7 % (40-54); Hemoglobin 13.6 g/dL (13.0-16.5); Lymphocyte # 2.46 X10^3/ul (0.83-4.51); Lymphocyte % 44.3 % (19-41); Mean Corp Hgb Conc 33.4 g/dL (32-36); Mean Corpuscular Hgb 30.7 pg (27.0-32.0); Mean Corpuscular Volume 91.9 fL (80-94); Monocyte# 0.48 X10^3/uL; Monocyte% 8.6 % (0-10); NRBC Flagged by Analyzer 0 % (0-5); Neutrophil # 2.37 X10^3/uL (2.7-7.7); Neutrophil % 42.7 % (47-70); Platelet Count 170 K/mm3 (150-450); RBC Distribution Width CV 12.6 % (11.6-14.6); RBC Distribution Width SD 42.5 fl (35.1-43.9); Red Blood Count 4.43 M/mm3 (4.6-6.2); White Blood Count 5.6 K/mm3 (4.4-11.0)
[2024-10-04 17:57] LABS: Microalbumin,Random Urine < 5.0 mg/L (NO RANGE EST.)
[2024-10-04 18:06] LABS: ALB/GLOB Ratio 1.2 RATIO (0.9-2.4); AST(SGOT) 26 U/L (15-37); Alanine Aminotransfer ALT/SGPT 22 U/L (16-61); Albumin, Serum 3.7 g/dL (3.2-5.0); Alkaline Phosphatase 49 U/L (45-117); Anion Gap 7 (5-15); BUN 12 mg/dL (7-18); BUN/Creat Ratio 11.4 RATIO (10-20); Calcium,Total 8.9 mg/dL (8.5-10.1); Chloride 102 mmol/L (98-107); Creatinine, Serum 1.05 mg/dL (0.70-1.30); EST Glomerular Filtration Rate 73 mL/min (>60); Est Glom Filt Rate - Afr Amer 88 mL/min (>60); Globulin 3.1 g/dL (2.2-4.2); Glucose 122 mg/dL (74-106); Potassium 3.9 mmol/L (3.5-5.1); Protein, Total 6.8 g/dL (6.4-8.2); Sodium Level 136 mmol/L (136-145)
== END | disposition home or self-care (01) ==
LOC: MFPLAB 14:13
PROVIDERS: PCP Family Medicine; Referring Provider Family Medicine; Visit Provider Family Medicine
DX: I10 Essential (primary) hypertension (principal); M54.50 Low back pain, unspecified
CPT/HCPCS: 36415; 80053; 80307; 82043; 82570; 85025